=== PATIENT | male | born 1975 | race Caucasian/White ===

== ENCOUNTER 2018-07-23 11:02 | Inpatient (IN) | payer BC ==
[2018-07-23 12:06] LABS: Absolute Lymphocytes (CBC) 2.8 K/uL (0.7-4.9); Absolute Monocytes 0.8 K/uL (0.1-1.3); Absolute Neutrophil 5.1 K/uL (1.8-8.0); Basophils % 0.9 % (0-1.3); Eosinophils % 3.4 % (0-4.4); Hematocrit 45.8 % (39.6-49.0); Lymphocytes % 30.4 % (15.3-44.8); MPV 8.1 fL (7.6-11.3); Monocytes % 8.6 % (3.3-12.3); RBC Red Blood Cell Count 4.83 M/uL (4.33-5.43)
[2018-07-23 12:07] LABS: Protime INR 1.02
[2018-07-23 12:23] LABS: ALT/SGPT 60 U/L (12-78); AST/SGOT 19 U/L (15-37); Alkaline Phosphatase 96 U/L (45-117); BUN Blood Urea Nitrogen 9 mg/dL (7-18); Bicarbonate 30 mmol/L (21-32); Bilirubin Direct < 0.1 mg/dL (0-0.2); Bilirubin Total 0.3 mg/dL (0.2-1.0); Glucose Level 87 mg/dL (74-106); Magnesium 2.3 mg/dL (1.8-2.4); NT PRO-BNP 490 pg/mL (<125); Potassium 3.9 mmol/L (3.5-5.1); Protein, Total 7.4 g/dL (6.4-8.2); Sodium Level 139 mmol/L (136-145); Troponin (Emerg Dept Use Only) 0.08 ng/mL (0.0-0.045)
--- NOTE | 2018-07-23 12:24 | RAD REPORT ---
EXAM DESCRIPTION: RAD - Chest Single View - 07/23/2018 12:16 pm CLINICAL HISTORY: Shortness of breath, chest pain COMPARISON: January 2011 TECHNIQUE: AP portable chest image was obtained 1201 hours . FINDINGS: No focal lung parenchymal process. Lung markings are not substantially different from comp arison. Heart and vasculature are normal. No measurable pleural effusion and no pneumothorax. No acut e bony abnormality seen. No acute aortic findings suspected. IMPRESSION: No acute cardiopulmonary process.
--- NOTE | 2018-07-23 12:50 | ER ---
Nurse's Notes [facility] Name: Gregory Richardson Jr Age: 43 yrs Sex: Male : 1975 Arrival Date: 07/23/2018 Time: 11:03 Bed 16 Private MD: Billy Granger T Diagnosis: Abnormal electrocardiogram [ECG] [EKG];Unstable angina Presentation: 07/23 11:11 Presenting complaint: "My heart feels like it keeps skipping a beat 2-3 times per hb minute, when it happens it takes my breath away.". Transition of care: patient was not received from another setting of care. Onset of symptoms was July 26, 2018. Risk Assessment: Do you want to hurt yourself or someone else? Patient reports no desire to harm self or others. Initial Sepsis Screen: Does the patient meet any 2 criteria? No. Patient's initial sepsis screen is negative. Does the patient have a suspected source of infection? No. Patient's initial sepsis screen is negative. Care prior to arrival: None. 11:11 Method Of Arrival: Ambulatory hb 11:11 Acuity: RHIANNON 3 hb Triage Assessment: 11:20 General: Appears uncomfortable, Behavior is calm. Pain: Denies pain. Neuro: No deficits ls4 noted. Cardiovascular: Reports palpitations, Denies chest pain, Capillary refill < 3 seconds Rhythm is regular Chest pain is denied. Historical: - Allergies: 11:13 No Known Allergies; hb - Home Meds: 11:13 carvedilol 12.5 mg oral tab 1 tab every 12 hours [Active]; rosuvastatin oral oral hb [Active]; - PMHx: 11:13 Hypertension; hb - PSHx: 11:13 None; hb - Immunization history:: Adult Immunizations up to date. - Social history:: Smoking status: Patient uses tobacco products, smokes one pack cigarettes per day. - Ebola Screening: : No symptoms or risks identified at this time. Screenin:40 Abuse screen: Denies threats or abuse. Denies injuries from another. Nutritional ls4 screening: No deficits noted. Tuberculosis screening: No symptoms or risk factors identified. Fall Risk None identified. Assessment: 11:40 General: Appears distressed, uncomfortable, Behavior is calm. Pain: Denies pain. Neuro: ls4 No deficits noted. Cardiovascular: Reports palpitations, Denies chest pain, diaphoresis, fatigue, lightheadedness, nausea, palpitations, shortness of breath, syncope, vomiting, Capillary refill < 3 seconds Patient's skin is warm and dry. Respiratory: No deficits noted. GI: No deficits noted. : No deficits noted. Musculoskeletal: No deficits noted. 12:38 Reassessment: Patient and/or family updated on plan of care and expected duration. Pain ls4 level reassessed. Patient is alert, oriented x 3, equal unlabored respirations, skin warm/dry/pink. 13:30 Reassessment: Patient and/or family updated on plan of care and expected duration. Pain ls4 level reassessed. Patient is alert, oriented x 3, equal unlabored respirations, skin warm/dry/pink. 14:30 Reassessment: Patient and/or family updated on plan of care and expected duration. Pain ls4 level reassessed. Patient is alert, oriented x 3, equal unlabored respirations, skin warm/dry/pink. Vital Signs: 11:11 BP 165 / 99; Pulse 83; Resp 16; Temp 97.7; Pulse Ox 100% on R/A; Pain 0/10; hb 11:48 BP 149 / 102; Pulse 73; Resp 16; Pulse Ox 99% on R/A; Pain 0/10; ls4 12:39 BP 143 / 103; Pulse 68; Resp 18; Temp 98.0; Pulse Ox 99% on R/A; Pain 0/10; ls4 13:30 BP 147 / 94; Pulse 90; Resp 18; Temp 98.2; Pulse Ox 99% on R/A; Pain 0/10; ls4 14:21 BP 144 / 92; Pulse 70; Resp 16; Temp 98.4(O); Pulse Ox 99% on R/A; Pain 0/10; ls4 15:00 BP 148 / 90; Pulse 72; Resp 16; Temp 98.2(O); Pulse Ox 99% on R/A; Pain 0/10; ls4 ED Course: 11:03 Patient arrived in ED. rg4 11:03 Billy Granger MD is Private Physician. rg4 11:13 Triage completed. hb 11:13 Arm band placed on. hb 11:14 Martínez Jones MD is Attending Physician. gs 11:15 Pedro, Sharon, RN is Primary Nurse. ls4 11:40 Patient has correct armband on for positive identification. Bed in low position. Call ls4 light in reach. Side rails up X 1. monitor tech on. Pulse ox on. NIBP on. Warm blanket given. 11:40 No provider procedures requiring assistance completed. Inserted saline lock: 20 gauge ls4 in right forearm, using aseptic technique. 11:45 EKG done, by performing arts technicians. reviewed by Martínez Jones MD. at1 12:08 X-ray completed. Portable x-ray completed in exam room. Patient tolerated procedure sw well. 12:11 XRAY Chest (1 view) In Process Unspecified. EDMS 12:47 Jessica Haro MD is Hospitalizing Provider. gs 15:44 Patient transferred, IV remains in place. intact. ls4 Administered Medications: 12:58 CANCELLED (Duplicate Order): Nicoderm CQ 21 mg/24 hr 21 mg Transdermal once gs 13:39 Drug: Aspirin Chewable Tablet 324 mg Route: PO; ls4 14:10 Follow up: Response: No adverse reaction ls4 Outcome: 12:49 Decision to Hospitalize by Provider. gs 15:28 Admitted to Tele room 215. ls4 15:28 Admitted to Tele Report called to [facility] 15:28 Condition: stable 15:45 Patient left the ED. ls4 Signatures: Dispatcher [employer] EDID Lottie Vázquez, envelope folding machine adjuster EKG Tat1 Tabitha Price Heather, ROEL RN Starla Son rg4 Martínez Jones MD MD Sharon Vasquez RN RN ls4
--- NOTE | 2018-07-23 12:51 | EDPHYS ---
Physician Documentation [facility] Name: Gregory Richardson Jr Age: 43 yrs Sex: Male : 1975 Arrival Date: 07/23/2018 Time: 11:03 Bed 16 Private MD: Billy Granger T ED Physician Martínez Jones HPI: 07/23 12:32 This 43 yrs old Male presents to ER via Ambulatory with complaints of gs Palpitations. 12:32 The patient presents with a history of heart skipping beats. Context: The symptoms gs occur without known cause. Onset: The symptoms/episode began/occurred 1 week(s) ago. Duration: The patient or guardian reports multiple episodes, that are intermittent, that wax and wane, with no pattern. Modifying factors: The symptoms are aggravated by nothing. The symptoms are alleviated by nothing. Associated signs and symptoms: Pertinent positives: chest pain, SOB. Severity of symptoms: At their worst the symptoms were moderate in the emergency department the symptoms have resolved and did so while in waiting room. The patient has experienced similar episodes in the past, a few times. The patient has not recently seen a physician. Historical: - Allergies: 11:13 No Known Allergies; hb - Home Meds: 11:13 carvedilol 12.5 mg oral tab 1 tab every 12 hours [Active]; rosuvastatin oral oral hb [Active]; - PMHx: 11:13 Hypertension; hb - PSHx: 11:13 None; hb - Immunization history:: Adult Immunizations up to date. - Social history:: Smoking status: Patient uses tobacco products, smokes one pack cigarettes per day. - Ebola Screening: : No symptoms or risks identified at this time. ROS: 12:32 All other systems are negative. gs Exam: 12:32 Head/Face: Normocephalic, atraumatic. Eyes: Pupils equal round and reactive to light, gs extra-ocular motions intact. Lids and lashes normal. Conjunctiva and sclera are non-icteric and not injected. Cornea within normal limits. Periorbital areas with no swelling, redness, or edema. ENT: Nares patent. No nasal discharge, no septal abnormalities noted. Tympanic membranes are normal and external auditory canals are clear. Oropharynx with no redness, swelling, or masses, exudates, or evidence of obstruction, uvula midline. Mucous membranes moist. Neck: Trachea midline, no thyromegaly or masses palpated, and no cervical lymphadenopathy. Supple, full range of motion without nuchal rigidity, or vertebral point tenderness. No Meningismus. Chest/axilla: Normal chest wall appearance and motion. Nontender with no deformity. No lesions are appreciated. Cardiovascular: Regular rate and rhythm with a normal S1 and S2. No gallops, murmurs, or rubs. Normal PMI, no JVD. No pulse deficits. Respiratory: Lungs have equal breath sounds bilaterally, clear to auscultation and percussion. No rales, rhonchi or wheezes noted. No increased work of breathing, no retractions or nasal flaring. Abdomen/GI: Soft, non-tender, with normal bowel sounds. No distension or tympany. No guarding or rebound. No evidence of tenderness throughout. Back: No spinal tenderness. No costovertebral tenderness. Full range of motion. Skin: Warm, dry with normal turgor. Normal color with no rashes, no lesions, and no evidence of cellulitis. MS/ Extremity: Pulses equal, no cyanosis. Neurovascular intact. Full, normal range of motion. Neuro: Awake and alert, GCS 15, oriented to person, place, time, and situation. Cranial nerves II-XII grossly intact. Motor strength 5/5 in all extremities. Sensory grossly intact. Cerebellar exam normal. Normal gait. 12:32 Constitutional: The patient appears alert, awake. 12:32 ECG was reviewed by the Attending Physician. Vital Signs: 11:11 BP 165 / 99; Pulse 83; Resp 16; Temp 97.7; Pulse Ox 100% on R/A; Pain 0/10; hb 11:48 BP 149 / 102; Pulse 73; Resp 16; Pulse Ox 99% on R/A; Pain 0/10; ls4 12:39 BP 143 / 103; Pulse 68; Resp 18; Temp 98.0; Pulse Ox 99% on R/A; Pain 0/10; ls4 13:30 BP 147 / 94; Pulse 90; Resp 18; Temp 98.2; Pulse Ox 99% on R/A; Pain 0/10; ls4 14:21 BP 144 / 92; Pulse 70; Resp 16; Temp 98.4(O); Pulse Ox 99% on R/A; Pain 0/10; ls4 15:00 BP 148 / 90; Pulse 72; Resp 16; Temp 98.2(O); Pulse Ox 99% on R/A; Pain 0/10; ls4 MDM: 11:41 Patient medically screened. gs 12:32 LEONEL Risk Score: 1 - Elevated Cardiac Markers. Differential diagnosis: arrythmia, gs dehydration, cad,mi. Data reviewed: vital signs, nurses notes. Counseling: I had a detailed discussion with the patient and/or guardian regarding: the historical points, exam findings, and any diagnostic results supporting the discharge/admit diagnosis, lab results, radiology results, the need for further work-up and treatment in the hospital. Response to treatment: There is no appreciated change of the patient's symptoms at this time. 12:49 Physician consultation: Porter Guerra MD and will see patient in inpatient room. 07/23 11:39 Order name: Basic Metabolic Panel; Complete Time: 12:30 [facility] 07/23 11:39 Order name: CBC with Diff; Complete Time: 12:30 [facility] 07/23 11:39 Order name: LFT's; Complete Time: 12:30 [facility] 07/23 11:39 Order name: Magnesium; Complete Time: 12:30 [facility] 07/23 11:39 Order name: NT PRO-BNP; Complete Time: 12:30 [facility] 07/23 11:39 Order name: PT-INR; Complete Time: 12:30 [facility] 07/23 11:39 Order name: Troponin (emerg Dept Use Only); Complete Time: 12:30 [facility] 07/23 11:39 Order name: XRAY Chest (1 view); Complete Time: 12:30 [facility] 07/23 13:24 Order name: Troponin I [facility] 07/23 13:24 Order name: Troponin I [facility] 07/23 13:24 Order name: Troponin I [facility] 07/23 13:24 Order name: Troponin I [facility] 07/23 11:39 Order name: EKG; Complete Time: 11:49 [facility] 07/23 11:39 Order name: Cardiac monitoring; Complete Time: 11:47 [facility] 07/23 11:39 Order name: EKG - Nurse/Tech; Complete Time: 11:47 [facility] 07/23 11:39 Order name: IV Saline Lock; Complete Time: 11:47 [facility] 02/12 11:39 Order name: Labs collected and sent; Complete Time: 11:47 4 07/23 11:39 Order name: O2 Per Protocol; Complete Time: 11:47 4 07/23 11:39 Order name: O2 Sat Monitoring; Complete Time: 11:48 4 07/23 13:23 Order name: CONS Physician Consult EDVT EC:32 Rate is 81 beats/min. Rhythm is regular. WI interval is normal. QRS interval is normal. gs Q waves are Old in leads III, aVF. T waves are Peaked in lead V2. T waves are Flattened in lead V6. Clinical impression: NSR w/ Non-specific ST/T Changes. Interpreted by me. Administered Medications: 12:58 CANCELLED (Duplicate Order): Nicoderm CQ 21 mg/24 hr 21 mg Transdermal once 13:39 Drug: Aspirin Chewable Tablet 324 mg Route: PO; ls4 14:10 Follow up: Response: No adverse reaction ls4 Disposition: 07/23/18 12:49 Hospitalization ordered by Jessica Haro for Inpatient Admission. Preliminary diagnosis are Abnormal electrocardiogram [ECG] [EKG], Unstable angina. - Bed requested for Telemetry/MedSurg (Inpatient). - Status is Inpatient Admission. ls4 - Condition is Stable. - Problem is new. - Symptoms are unchanged. UTI on Admission? No Critical care time excluding procedures: 12:46 Critical care time: Bedside Care: 10 minutes, Consultation: 10 minutes, Family Intervention: 10 minutes. Total time: 30 minutes Signatures: Dispatcher [facility] Riri Caballero RN RN Martínez Jones MD MD Brianna Moran Lisa, RN RN ls4 Corrections: (The following items were deleted from the chart) 12:58 12:57 Nicoderm CQ Patch 21 mg/24 hr 21 mg Transdermal once ordered. [facility] 14:34 12:49 Hospitalization Ordered by Jessica Haro MD for Inpatient Admission. Preliminary eb diagnosis is Abnormal electrocardiogram [ECG] [EKG]; Unstable angina. Bed requested for Telemetry/MedSurg (Inpatient). Status is Inpatient Admission. Condition is Stable. Problem is new. Symptoms are unchanged. UTI on Admission? No. gs 15:45 14:34 07/23/2018 12:49 Hospitalization Ordered by Jessica Haro MD for Inpatient ls4 Admission. Preliminary diagnosis is Abnormal electrocardiogram [ECG] [EKG]; Unstable angina. Bed requested for Telemetry/MedSurg (Inpatient). Status is Inpatient Admission. Condition is Stable. Problem is new. Symptoms are unchanged. UTI on Admission? No. eb
[2018-07-23] MEDS ORDERED: ASPIRIN 81 MG CHEWABLE TABLET ONE (13:25)
[2018-07-23] MEDS ORDERED: DIPHENHYDRAMINE 50 MG/ML VIAL ONE (13:25)
[2018-07-23] MEDS ORDERED: ACETAMINOPHEN 500 MG TAB PO PRN (15:32)
[2018-07-23 15:44] VITALS: BMI 32.1
[2018-07-23] MEDS: NA CHLORIDE 0.9% 1,000 ML IV SCH (16:20)
--- NOTE | 2018-07-23 16:57 | EKG ---
Test Date: 2018-07-23 Test Time: 11:20:03 [employer] Cook: MARYANN/T MEASUREMENT RESULTS: Intervals: Rate: 81 FL: 144 QRSD: 88 QT: 372 QTc: 432 Bennett: P: 55 FL: 144 QRS: 23 T: 1 INTERPRETIVE STATEMENTS: Normal sinus rhythm Possible Inferior infarct, age undetermined Abnormal ECG Compared to ECG 02/01/2011 19:49:20 Myocardial infarct finding now present Electronically Signed On 07-23-18 16:56:50 DATA STORAGE SPECIALIST by Porter Guerra
[2018-07-23] MEDS ORDERED: INFLUENZA VACCINE (for 3y+) 0.5 ML DOSE IMVAC ONE (17:00)
[2018-07-23] MEDS: NICOTINE 14 MG/PAT TD SCH (17:00)
--- NOTE | 2018-07-23 17:36 | P.HP ---
Certification for Inpatient Patient admitted to: Inpatient With expected LOS: >2 Midnights Practitioner: I am a practitioner with admitting privileges, knowledge of patient current condition, hospital course, and medical plan of care. Services: Services provided to patient in accordance with Admission requirements found in Title 42 Section 412.3 of the Code of Federal Regulations Patient History Date of Service: 07/23/18 Reason for admission: Chest Pressure History of Present Illness: 43 y/o male with significant past medical history who presented to the ER with chest pressure that started this morning. Patient stated that about 3 days ago he was seen at the urgent care for the similar pain in his left chest which was radiating up his neck and has been having tingling and numbness in his left arm as well. Patient was told at that time to come to the ER as he had some changes to his EKG and some of his lab work was abnormal. However at that time patient did not come to the ER however this morning since his chest pain got worse he decided to come to the ER for further workup. Patient denies having any shortness of breath nausea vomiting abdominal pain or any other associated symptoms. Patient currently smokes more than a pack a day and drinks about 1-2 beer cans tonight. Patient currently also is compliant with his high blood pressure medication. No other complaints to offer. Allergies No Known Drug Allergies Allergy (Unverified 12/18/14 17:34) Unknown No Known Allergies Allergy (Uncoded 07/26/16 13:52) Unknown Home medications list reviewed: Yes Home Medications: Carvedilol [Coreg*] 12.5 mg pe PO BID 07/23/18 - Past Medical/Surgical History Has patient received pneumonia vaccine in the past: No Diabetic: No -: hypertension -: hyppercholesterolemia -: Tobacco Dependence Past Surgical History: Reviewed- Non-Contributory -: left shoulder surgery - Family History Family History: Reviewed- Non-Contributory - Social History Smoking Status: Heavy Tobacco smoker (>10 cigarettes/day) Counseled patient to stop smoking for: more than 10 minutes Smoking therapy provided: Yes Patient receptive to therapy: Yes Alcohol use: Yes CD- Drugs: No Caffeine use: Yes Place of Residence: Home Review of Systems 10-point ROS is otherwise unremarkable Physical Examination - Vital Signs Temperature: 98.0 F Blood Pressure: 152/98 Pulse: 68 Respirations: 20 Pulse Ox (%): 99 - Physical Exam General: Alert, In no apparent distress HEENT: Atraumatic, PERRLA, Mucous membr. moist/pink, EOMI, Sclerae nonicteric Neck: Supple, 2+ carotid pulse no bruit, No LAD, Without JVD or thyroid abnormality Respiratory: Clear to auscultation bilaterally, Normal air movement Cardiovascular: Regular rate/rhythm, Normal S1 S2 Gastrointestinal: Normal bowel sounds, No tenderness Musculoskeletal: No tenderness Integumentary: No rashes Neurological: Normal gait, Normal speech, Normal strength at 5/5 x4 extr, Normal tone, Normal affect Lymphatics: No axilla or inguinal lymphadenopathy - Studies Laboratory Data (last 24 hrs) 07/23/18 11:56: PT 12.0, INR 1.02 07/23/18 11:56: WBC 9.1, Hgb 15.7, Hct 45.8, Plt Count 274 07/23/18 11:56: Sodium 139, Potassium 3.9, BUN 9, Creatinine 0.77, Glucose 87, Magnesium 2.3, Total Bilirubin 0.3, AST 19, ALT 60, Alkaline Phosphatase 96 Assessment and Plan - Problems (Diagnosis) (1) NSTEMI (non-ST elevated myocardial infarction) Current Visit: Yes Status: Acute Plan: NSTEMI with elevated Troponin and nonspecific ST changes on EKG -Cardiology consulted. Appreciated Reccs -Cardiac Cath Planned for pablo AM -ASA, Lovenox, BB and Statin for now (2) HTN (hypertension) Current Visit: Yes Status: Chronic Plan: BP stable at this time -Resume home medication Qualifiers: Hypertension type: essential hypertension Qualified Code(s): I10 - Essential (primary) hypertension (3) Tobacco abuse Current Visit: Yes Status: Acute Plan: Smoking Cessation for > 10 mins provided -nicotine patch placed (4) Alcohol use Current Visit: Yes Status: Acute Discharge Plan: Other Plan to discharge in: Greater than 2 days - Advance Directives Does patient have a Living Will: No Does patient have a Durable POA for Healthcare: No - Code Status/Comfort Care Code Status Assessed: Yes Critical Care: No
[2018-07-23 18:01] LABS: Urine Appearance CLEAR; Urine Bilirubin NEGATIVE (NEG); Urine Blood NEGATIVE (NEG); Urine Color YELLOW; Urine Glucose NEGATIVE (NEG); Urine Protein NEGATIVE (NEG); Urine Urobilinogen 0.2 mg/dL (0.2-1.0)
[2018-07-23 18:24] LABS: Urine Microscopic Reflex NO UMIC
[2018-07-23] MEDS ORDERED: POTASSIUM CL SA 10 MEQ TAB PO ONE (18:44)
[2018-07-23] MEDS: PANTOPRAZOLE 40MG TABLET PO SCH (18:55)
[2018-07-23] MEDS ORDERED: ATORVASTATIN 40 MG TAB PO SCH (21:00)
[2018-07-23] MEDS: CARVEDILOL 12.5 MG TAB PO SCH (21:04)
--- NOTE | 2018-07-23 22:42 | CON ---
CARDIOLOGY CONSULTATION Chief Complaint: Chest pain. History Of Present Illness: Mr. Richardson has been having chest pain on and off. It is associated with pa lpitations, feels like pressure. He has been dealing with it for several weeks, came to the ER becau se it seemed to be worse. He has an EKG that is different from old EKGs. There is, what looks like, a completed inferior MN and nonspecific ST changes. His laboratory exam reveals a troponin of 0.08. Mr. Richardson has no previous history of myocardial infarction or stroke. About a month ago, he was star shannon on blood pressure medicine and seemed to feel fine with that and was also started on Crestor and immediately had to stop it because of muscle aches and pains and general feeling of illness. Medications: His blood pressure medicine at home is Coreg 12.5 mg b.i.d. Social History: The patient is a heavy tobacco user. He has been a 2 utsp-epn-oid smoker, presently is about 1 pack per day. Family History: His family history is very positive for heart disease and about every living [facility] has some form of heart disease, numerous of his primary notable family members are or suff ering with CAD. Physical Examination: Vital signs: Height 5 feet 11 inches, weight 230 pounds. General: Alert, oriented, pleasant, and not in distress. Lungs: Clear. Heart: Exam within normal limits. Abdomen: Soft. Extremities: Palpable pulses. Laboratory Data: EKG, inferior MN. His creatinine is 0.77. His blood sugar is 87. Impression And Plan: The patient either had a non-ST elevation myocardial infarction or unstable ang pretty. I have recommended cardiac cath, smoking cessation, and trying a different cholesterol medicine . He is agreeable to doing a cardiac cath tomorrow. We will try to use the right radial approach pr imarily and be ready to put a stent in, if required. MARIO/HERONL Voice ID: [id number] Report ID: [id number]
[2018-07-24] MEDS: NA CHLORIDE 0.9% 1,000 ML IV SCH (01:32)
[2018-07-24 04:41] LABS: Absolute Lymphocytes (CBC) 2.7 K/uL (0.7-4.9); Absolute Monocytes 0.9 K/uL (0.1-1.3); Absolute Neutrophil 4.7 K/uL (1.8-8.0); Basophils % 0.5 % (0-1.3); Eosinophils % 3.6 % (0-4.4); Hematocrit 45.6 % (39.6-49.0); Lymphocytes % 31.2 % (15.3-44.8); MPV 8.2 fL (7.6-11.3); Monocytes % 10.5 % (3.3-12.3); RBC Red Blood Cell Count 4.71 M/uL (4.33-5.43)
[2018-07-24 04:56] LABS: ALT/SGPT 54 U/L (12-78); AST/SGOT 17 U/L (15-37); Albumin 3.7 g/dL (3.4-5.0); Alkaline Phosphatase 91 U/L (45-117); BUN Blood Urea Nitrogen 9 mg/dL (7-18); Bicarbonate 29 mmol/L (21-32); Bilirubin Total 0.6 mg/dL (0.2-1.0); Glucose Level 88 mg/dL (74-106); Potassium 4.2 mmol/L (3.5-5.1); Protein, Total 7.1 g/dL (6.4-8.2); Sodium Level 145 mmol/L (136-145); Troponin I 0.08 ng/mL (0.0-0.045)
[2018-07-24] MEDS ORDERED: METOPROLOL XL 25 MG TAB PO SCH (06:00)
[2018-07-24] MEDS: ASPIRIN EC 81 MG TAB PO SCH (07:20)
[2018-07-24] MEDS: CARVEDILOL 12.5 MG TAB PO SCH ×2 (07:22→20:26)
[2018-07-24] MEDS: PANTOPRAZOLE 40MG TABLET PO SCH (07:22)
[2018-07-24] MEDS ORDERED: LIDOCAINE 1% 20 ML MDV ONE (07:23)
[2018-07-24] MEDS ORDERED: HEPA 1000U/500MLS 2,000 UNIT/1,000 ML BAG IV ONE (07:23)
[2018-07-24] MEDS ORDERED: HEPARIN 5000 UNIT/ML 1 ML VIAL ONE (07:25)
[2018-07-24] MEDS ORDERED: NICARDIPINE HCL 25 MG/10 ML IV ONE (07:25)
[2018-07-24] MEDS ORDERED: NITROGLYCERIN 100 MCG/ML SYR (for cath lab use only) IV ONE (07:25)
[2018-07-24] MEDS ORDERED: NITROGLYCERIN/D5W 25 MG/250 ML BTL IV ONE (07:25)
[2018-07-24] MEDS ORDERED: MIDAZOLAM HCL 2 MG/2 ML INJ ONE ×2 (08:09→08:42)
[2018-07-24] MEDS ORDERED: FENTANYL CITR 100 MCG/2 ML ONE (08:09)
[2018-07-24] MEDS ORDERED: ATROPINE SULF 1 MG/10 ML SYR IV ONE (08:14)
[2018-07-24] MEDS ORDERED: NA CHLORIDE 0.9% 50 ML ONE (08:14)
[2018-07-24] MEDS: NICOTINE 14 MG/PAT TD SCH ×2 (09:00→14:30)
[2018-07-24] MEDS: CLOPIDOGREL 75 MG TABLET PO SCH (09:00)
[2018-07-24] MEDS ORDERED: PRASUGREL (EFFIENT) 10 MG TAB ONE (09:04)
[2018-07-24 16:30] VITALS: O2SAT 96
[2018-07-24] MEDS: METOPROLOL XL 50 MG TAB PO SCH (17:33)
--- NOTE | 2018-07-24 17:45 | P.PN ---
Subjective Date of Service: 07/24/18 Chief Complaint: Chest Pressure Examined at bedside with RN. Chart reviewed. Case discussed with cardiology. Patient status post cardiac catheterization. Stent placed in the RCA. Review of Systems 10-point ROS is otherwise unremarkable Physical Examination - Vital Signs Temperature: 98.7 F Blood Pressure: 135/70 Pulse: 84 Respirations: 18 Pulse Ox (%): 96 - Physical Exam General: Alert, In no apparent distress HEENT: Atraumatic, PERRLA, EOMI Neck: Supple, JVD not distended Respiratory: Clear to auscultation bilaterally, Normal air movement Cardiovascular: Regular rate/rhythm, Normal S1 S2 Gastrointestinal: Normal bowel sounds, No tenderness Musculoskeletal: No tenderness Integumentary: No rashes Neurological: Normal speech, Normal tone, Normal affect Lymphatics: No axilla or inguinal lymphadenopathy - Studies Medications List Reviewed: Yes Assessment And Plan - Current Problems (Diagnosis) (1) NSTEMI (non-ST elevated myocardial infarction) Onset Date: 07/24/18 Current Visit: Yes Status: Acute Plan: NSTEMI with elevated Troponin and nonspecific ST changes on EKG -Cardiology consulted. Appreciated Reccs -S/P Cardiac Cath POD # 1 -Stent Placed in RCA today -ASA, Lovenox, BB and Statin for now (2) HTN (hypertension) Onset Date: 07/24/18 Current Visit: Yes Status: Chronic Plan: BP stable at this time -Resume home medication Qualifiers: Hypertension type: essential hypertension Qualified Code(s): I10 - Essential (primary) hypertension (3) Tobacco abuse Onset Date: 07/24/18 Current Visit: Yes Status: Acute Plan: Smoking Cessation for > 10 mins provided -nicotine patch placed (4) Alcohol use Onset Date: 07/24/18 Current Visit: Yes Status: Acute Discharge Plan: Home Plan to discharge in: 48 Hours - Code Status/Comfort Care Code Status Assessed: Yes Critical Care: No
[2018-07-24] MEDS ORDERED: ATORVASTATIN 80 MG TAB PO SCH (21:00)
[2018-07-24] MEDS ORDERED: TEMAZEPAM 15 MG CAP PO PRN (22:21)
[2018-07-25 04:27] LABS: Absolute Lymphocytes (CBC) 2.6 K/uL (0.7-4.9); Absolute Monocytes 0.8 K/uL (0.1-1.3); Absolute Neutrophil 4.8 K/uL (1.8-8.0); Basophils % 0.4 % (0-1.3); Eosinophils % 3.7 % (0-4.4); Lymphocytes % 30.1 % (15.3-44.8); MPV 8.4 fL (7.6-11.3); Monocytes % 9.8 % (3.3-12.3); RBC Red Blood Cell Count 4.93 M/uL (4.33-5.43)
[2018-07-25 04:51] LABS: ALT/SGPT 51 U/L (12-78); AST/SGOT 15 U/L (15-37); Albumin 3.9 g/dL (3.4-5.0); Alkaline Phosphatase 80 U/L (45-117); BUN Blood Urea Nitrogen 10 mg/dL (7-18); Bicarbonate 25 mmol/L (21-32); Bilirubin Total 0.4 mg/dL (0.2-1.0); Glucose Level 103 mg/dL (74-106); Protein, Total 7.1 g/dL (6.4-8.2); Sodium Level 143 mmol/L (136-145)
[2018-07-25 05:19] VITALS: TEMP 96.9
[2018-07-25] MEDS: METOPROLOL XL 50 MG TAB PO SCH (06:43)
[2018-07-25] MEDS: NICOTINE 14 MG/PAT TD SCH ×2 (08:10→08:14)
[2018-07-25] MEDS: PANTOPRAZOLE 40MG TABLET PO SCH (08:11)
[2018-07-25] MEDS: CARVEDILOL 12.5 MG TAB PO SCH ×2 (08:11→08:16)
[2018-07-25] MEDS: ASPIRIN EC 81 MG TAB PO SCH (08:11)
[2018-07-25] MEDS: CLOPIDOGREL 75 MG TABLET PO SCH (08:11)
[2018-07-25] MEDS: LISINOPRIL 5 MG TAB PO SCH ×2 (08:11→08:23)
[2018-07-25 08:23] VITALS: BP 109/58
--- NOTE | 2018-07-25 16:27 | P.DS ---
Admission Date: 07/23/18 Discharge Date: 07/25/18 Disposition: ROUTINE DISCHARGE Discharge Condition: GOOD Reason for Admission: Chest Pressure Consultations: Cardiology Procedures: Stent Placement in RCA for 99% occlusion - Problems (1) NSTEMI (non-ST elevated myocardial infarction) Onset Date: 07/24/18 Status: Acute (2) HTN (hypertension) Onset Date: 07/24/18 Status: Chronic Qualifiers: Hypertension type: essential hypertension Qualified Code(s): I10 - Essential (primary) hypertension (3) Tobacco abuse Onset Date: 07/24/18 Status: Acute (4) Alcohol use Onset Date: 07/24/18 Status: Acute Brief History of Present Illness: 43 y/o male with significant past medical history who presented to the ER with chest pressure that started this morning. Patient stated that about 3 days ago he was seen at the urgent care for the similar pain in his left chest which was radiating up his neck and has been having tingling and numbness in his left arm as well. Patient was told at that time to come to the ER as he had some changes to his EKG and some of his lab work was abnormal. However at that time patient did not come to the ER however this morning since his chest pain got worse he decided to come to the ER for further workup. Patient denies having any shortness of breath nausea vomiting abdominal pain or any other associated symptoms. Patient currently smokes more than a pack a day and drinks about 1-2 beer cans tonight. Patient currently also is compliant with his high blood pressure medication. No other complaints to offer. Hospital Course: Overall during the hospital stay patient remained stable Patient was initially admitted to the hospital for chest pain was found to have non ST elevated LA. Patient was taken to the cardiac catheterization lab with cardiology and was found to have 99% occlusion of his RCA. Patient received a stent in his RCA and had marked resolution in his symptoms. Patient was then started on acute coronary syndrome medication and was asked to follow up with cardiology in about 1-2 days post discharge when he was doing well overall here in the hospital. Patient demonstrate understanding and thus was discharged home under stable condition. Vital Signs/Physical Exam: Temp Pulse Resp BP Pulse Ox 96.9 F 65 18 109/58 L 97 07/25/18 04:00 07/25/18 06:43 07/25/18 04:00 07/25/18 06:43 07/25/18 04:00 General: Alert, In no apparent distress HEENT: Atraumatic, PERRLA, EOMI Neck: Supple, JVD not distended Respiratory: Clear to auscultation bilaterally, Normal air movement Cardiovascular: Regular rate/rhythm, Normal S1 S2 Gastrointestinal: Normal bowel sounds, No tenderness Musculoskeletal: No tenderness Integumentary: No rashes Neurological: Normal speech, Normal tone, Normal affect Lymphatics: No axilla or inguinal lymphadenopathy Laboratory Data at Discharge: WBC 8.6 K/uL (4.3-10.9) 07/25/18 03:37 Hgb 15.9 g/dL (13.6-17.9) 07/25/18 03:37 Hct 47.0 % (39.6-49.0) 07/25/18 03:37 Plt Count 232 K/uL (152-406) 07/25/18 03:37 PT 12.0 SECONDS (9.5-12.5) 07/23/18 11:56 INR 1.02 07/23/18 11:56 Sodium 143 mmol/L (136-145) 07/25/18 03:37 Potassium 4.0 mmol/L (3.5-5.1) 07/25/18 03:37 BUN 10 mg/dL (7-18) 07/25/18 03:37 Creatinine 0.72 mg/dL (0.55-1.3) 07/25/18 03:37 Glucose 103 mg/dL (74-106) 07/25/18 03:37 Magnesium 2.3 mg/dL (1.8-2.4) 07/23/18 11:56 Total Bilirubin 0.4 mg/dL (0.2-1.0) 07/25/18 03:37 AST 15 U/L (15-37) 07/25/18 03:37 ALT 51 U/L (12-78) 07/25/18 03:37 Alkaline Phosphatase 80 U/L (45-117) 07/25/18 03:37 Troponin I 0.08 ng/mL (0.0-0.045) H 07/24/18 03:37 Home Medications: Atorvastatin Calcium [Lipitor] 80 mg PO BEDTIME 30 Days #30 tab 07/25/18 Clopidogrel Bisulfate [Plavix*] 75 mg PO DAILY #30 tablet 07/25/18 Lisinopril [Prinivil*] 5 mg PO DAILY tab 07/25/18 Metoprolol Succinate [Toprol Xl*] 50 mg PO BID 6AM 6PM #60 tab 07/25/18 New Medications: Atorvastatin Calcium [Lipitor] 80 mg PO BEDTIME 30 Days #30 tab Clopidogrel Bisulfate [Plavix*] 75 mg PO DAILY #30 tablet Metoprolol Succinate [Toprol Xl*] 50 mg PO BID 6AM 6PM #60 tab
--- NOTE | 2018-08-08 02:14 | OP ---
Date of Procedure: 07/24/2018 Surgeon: Porter Guerra MD Procedures: Left heart catheterization, coronary left ventricular angiography, and percutaneous stephen nary intervention stent of the distal right coronary artery. 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 He has diffuse coronary plaquing in his LAD and left main. No significant stenosis. The proximal pa rt of the right coronary artery mid portions are free of any significant disease. The mid to distal portion had a long, dissected 99% stenosis with thrombus and after stenting with a 3.0 x 20 mm Synerg y stent, there was no residual stenosis, LEONEL grade 3 flow. Procedure In Detail: The patient had evidence of a non-ST elevation IL. He was brought to the [facility] laboratory tester fasting, sedated with Versed and fentanyl. Prepared and draped in usual sterile fashion. Right radial artery was chosen as the site. The tissues around the right radial artery were anesth etized with lidocaine. The artery was entered using a 21-gauge needle. A 0.021 inch diameter guidew sae was used to cannulate the artery. This allowed us to place a 6-Japanese Terumo radial sheath. As soon as it was in, we flushed it and administered a radial cocktail consisting of nicardipine, hepari n, and nitroglycerin. We angiogram'd both arteries and left ventricle using a TIG catheter. It was guided into place using a Terumo Glidewire with a short radius J-tip and fluoroscopy. At the end of the angiography procedures, we decided to do a stent. We administered Angiomax, demonstrated an acti vated clotting time greater than 400 seconds. We used an Ikari right guide catheter. We cannulated and crossed the lesion with a Dyess wire and then, without any predilation, We placed a 3.0 x 20 rigo nt across the lesion, inflated; it had an excellent angiographic result. At the end of the procedure , all catheters and wires were removed and the sheath was removed. Angiomax was turned off. A TR ba nd was placed, which achieved excellent hemostasis. Complications From The Procedure: None. Estimated Blood Loss: 10 cc. Account Management Specialist: Antolin Osorio. MARIO/RENEE Voice ID: [id number] Report ID: [id number]
== END 2018-07-25 09:59 | disposition home or self-care (01) | DRG 247 ==
LOC: ER 11:02 → ERHOLD 13:22 → 4TH 15:03
PROVIDERS: ADMIT Family Medicine; ATTEND Family Medicine
PROC: 027034Z Dilation of Coronary Artery, One Artery with Drug-eluting Intraluminal Device, Percutaneous Approach (ICD-10-PCS; principal; 2018-07-24)
PROC: 4A023N7 Measurement of Cardiac Sampling and Pressure, Left Heart, Percutaneous Approach (ICD-10-PCS; 2018-07-24)
PROC: B211YZZ Fluoroscopy of Multiple Coronary Arteries using Other Contrast (ICD-10-PCS; 2018-07-24)
PROC: B215YZZ Fluoroscopy of Left Heart using Other Contrast (ICD-10-PCS; 2018-07-24)
DX: I21.4 Non-ST elevation (NSTEMI) myocardial infarction (principal); F17.210 Nicotine dependence, cigarettes, uncomplicated; E78.00 Pure hypercholesterolemia, unspecified; I25.10 Atherosclerotic heart disease of native coronary artery without angina pectoris; I25.84 Coronary atherosclerosis due to calcified coronary lesion; F10.10 Alcohol abuse, uncomplicated; I11.9 Hypertensive heart disease without heart failure
CPT/HCPCS: 36415; 71045; 80048; 80053; 80076; 81003; 83735; 83880; 84484; 85025; 85347; 85610; 92928; 93005; 93458; 99285; C1725; C1893; J0583; J1644; J2250; J3010; J7030

== ENCOUNTER 2018-08-07 06:36 | Observation (INO) | payer BC ==
[2018-08-07] MEDS ORDERED: ASPIRIN 81 MG CHEWABLE TABLET ONE (07:09)
[2018-08-07 07:29] LABS: ALT/SGPT 50 U/L (12-78); AST/SGOT 18 U/L (15-37); Albumin 3.8 g/dL (3.4-5.0); Alkaline Phosphatase 107 U/L (45-117); BUN Blood Urea Nitrogen 10 mg/dL (7-18); Bicarbonate 28 mmol/L (21-32); Bilirubin Direct < 0.1 mg/dL (0-0.2); Bilirubin Total 0.4 mg/dL (0.2-1.0); Glucose Level 88 mg/dL (74-106); Magnesium 2.2 mg/dL (1.8-2.4); NT PRO-BNP 1240 pg/mL (<125); Potassium 3.9 mmol/L (3.5-5.1); Sodium Level 142 mmol/L (136-145); Troponin (Emerg Dept Use Only) < 0.02 ng/mL (0.0-0.045)
[2018-08-07 07:35] LABS: Absolute Lymphocytes (CBC) 2.2 K/uL (0.7-4.9); Absolute Monocytes 0.6 K/uL (0.1-1.3); Absolute Neutrophil 4.2 K/uL (1.8-8.0); Basophils % 0.7 % (0-1.3); Eosinophils % 4.4 % (0-4.4); Hematocrit 44.4 % (39.6-49.0); Lymphocytes % 29.9 % (15.3-44.8); MPV 8.4 fL (7.6-11.3); Monocytes % 8.3 % (3.3-12.3); RBC Red Blood Cell Count 4.73 M/uL (4.33-5.43)
[2018-08-07 07:36] LABS: Protime INR 1.02
--- NOTE | 2018-08-07 07:50 | EKG ---
Test Date: 2018-08-07 Test Time: 06:45:57 Clinical Operations Specialist: JOSUE MEASUREMENT RESULTS: Intervals: Rate: 72 CA: 146 QRSD: 94 QT: 388 QTc: 424 [place]: P: 73 CA: 146 QRS: 42 T: -26 INTERPRETIVE STATEMENTS: Normal sinus rhythm Inferior infarct, age undetermined Abnormal ECG Compared to ECG 07/23/2018 11:20:03 No significant changes Electronically Signed On 08-07-18 07:49:54 MANAGER SURGICAL by Porter Guerra
--- NOTE | 2018-08-07 08:18 | EDPHYS ---
Physician Documentation [facility] Name: Gregory Richardson Jr Age: 43 yrs Sex: Male : 1975 Arrival Date: 08/07/2018 Time: 06:37 Bed 8 Private MD: Billy Granger T ED Physician Adrian Tamez HPI: 08/07 07:14 This 43 yrs old Male presents to ER via Wheelchair with complaints of Nausea, kb Headache, Breathing Difficulty. 07:14 The patient has shortness of breath that woke him/her from sleep. Onset: The kb symptoms/episode began/occurred this morning. Duration: The symptoms are continuous, and are steadily getting worse. The patient's shortness of breath has no apparent modifying factors. Associated signs and symptoms: Pertinent positives: chest pressure. Severity of symptoms: At their worst the symptoms were moderate in the emergency department the symptoms are unchanged. The patient has not experienced similar symptoms in the past. The patient has not recently seen a physician. Pt reports he woke up from shortness of breath earlier this morning. Ate breakfast and went to work hoping it would get better, but it has gotten worse. Reports chest pressure that started this morning as well, denies pain. Had stent placed this month by Dr Guerra. . Historical: - Allergies: 06:49 No Known Allergies; ak1 - Home Meds: 06:49 Plavix 75 mg Oral tab 1 tab once daily [Active]; Metoprolol Tartrate Oral [Active]; ak1 Crestor oral oral [Active]; - PMHx: 06:49 Hypertension; Hyperlipidemia; ak1 - PSHx: 06:49 Heart stents; ak1 - Immunization history:: Adult Immunizations unknown. - Social history:: Smoking status: Patient uses tobacco products, smokes one-half pack cigarettes per day, chewing tobacco. - Ebola Screening: : No symptoms or risks identified at this time. ROS: 07:11 Constitutional: Negative for fever, chills, and weight loss, ENT: Negative for injury, kb pain, and discharge, Neck: Negative for injury, pain, and swelling, Abdomen/GI: Negative for abdominal pain, nausea, vomiting, diarrhea, and constipation, Back: Negative for injury and pain, : Negative for injury, bleeding, discharge, and swelling, MS/Extremity: Negative for injury and deformity, Skin: Negative for injury, rash, and discoloration, Neuro: Negative for headache, weakness, numbness, tingling, and seizure. 07:11 Cardiovascular: Positive for chest pain, Negative for edema, orthopnea, palpitations, paroxysmal nocturnal dyspnea. 07:11 Respiratory: Positive for shortness of breath, Negative for cough, dyspnea on exertion, hemoptysis, orthopnea, pleurisy, sputum production, wheezing. Exam: 07:14 Constitutional: This is a well developed, well nourished patient who is awake, alert, kb and in no acute distress. Head/Face: Normocephalic, atraumatic. ENT: Nares patent. No nasal discharge, no septal abnormalities noted. Tympanic membranes are normal and external auditory canals are clear. Oropharynx with no redness, swelling, or masses, exudates, or evidence of obstruction, uvula midline. Mucous membranes moist. Neck: Trachea midline, no thyromegaly or masses palpated, and no cervical lymphadenopathy. Supple, full range of motion without nuchal rigidity, or vertebral point tenderness. No Meningismus. Chest/axilla: Normal chest wall appearance and motion. Nontender with no deformity. No lesions are appreciated. Cardiovascular: Regular rate and rhythm with a normal S1 and S2. No gallops, murmurs, or rubs. Normal PMI, no JVD. No pulse deficits. Respiratory: Lungs have equal breath sounds bilaterally, clear to auscultation and percussion. No rales, rhonchi or wheezes noted. No increased work of breathing, no retractions or nasal flaring. Abdomen/GI: Soft, non-tender, with normal bowel sounds. No distension or tympany. No guarding or rebound. No evidence of tenderness throughout. Back: No spinal tenderness. No costovertebral tenderness. Full range of motion. Skin: Warm, dry with normal turgor. Normal color with no rashes, no lesions, and no evidence of cellulitis. MS/ Extremity: Pulses equal, no cyanosis. Neurovascular intact. Full, normal range of motion. Neuro: Awake and alert, GCS 15, oriented to person, place, time, and situation. Cranial nerves II-XII grossly intact. Motor strength 5/5 in all extremities. Sensory grossly intact. Cerebellar exam normal. Normal gait. Vital Signs: 06:50 BP 182 / 91; Pulse 74; Resp 20; Temp 97.6(O); Pulse Ox 100% on R/A; Weight 99.79 kg ak1 (R); Height 5 ft. 10 in. (177.80 cm) (R); Pain 0/10; 08:00 BP 161 / 87; Pulse 64; Resp 18; Pulse Ox 99% on R/A; ph 09:00 BP 141 / 84; Pulse 62; Resp 17; Pulse Ox 100% on R/A; Pain 0/10; dh3 06:50 Body Mass Index 31.57 (99.79 kg, 177.80 cm) ak1 MDM: 06:45 Patient medically screened. kb 07:11 Data reviewed: vital signs, nurses notes. Data interpreted: Pulse oximetry: on room air kb is 100 %. Interpretation: normal. 08:10 Counseling: I had a detailed discussion with the patient and/or guardian regarding: the kb historical points, exam findings, and any diagnostic results supporting the discharge/admit diagnosis, lab results, radiology results, the need for further work-up and treatment in the hospital. 08:16 Physician consultation: Ivana Rodriguez MD was contacted at 08:16, regarding admission, to the telemetry unit. patient's condition, and will see patient in ED, shortly. 08/07 06:50 Order name: Basic Metabolic Panel; Complete Time: 07:29 kb 08/07 06:50 Order name: CBC with Diff; Complete Time: 07:43 kb 08/07 06:50 Order name: LFT's; Complete Time: 07:29 kb 08/07 06:50 Order name: Magnesium; Complete Time: 07:29 kb 08/07 06:50 Order name: NT PRO-BNP; Complete Time: 07:29 kb 08/07 06:50 Order name: PT-INR; Complete Time: 07:37 kb 08/07 06:50 Order name: Troponin (emerg Dept Use Only); Complete Time: 07:29 kb 08/07 06:50 Order name: XRAY Chest (1 view); Complete Time: 08:29 kb 08/07 06:50 Order name: EKG; Complete Time: 06:51 kb 08/07 06:50 Order name: Cardiac monitoring; Complete Time: 06:53 kb 08/07 06:50 Order name: EKG - Nurse/Tech; Complete Time: 06:53 kb 08/07 06:50 Order name: IV Saline Lock; Complete Time: 07:00 kb 08/07 06:50 Order name: Labs collected and sent; Complete Time: 07:00 kb 08/07 06:50 Order name: O2 Per Protocol; Complete Time: 06:53 kb 08/07 06:50 Order name: O2 Sat Monitoring; Complete Time: 06:53 kb Administered Medications: 06:59 Drug: Aspirin Chewable Tablet 324 mg Route: PO; ed1 Disposition: 18:21 Co-signature as Attending Physician, Darby BLAKE I agree with the assessment tw4 and plan of care. Disposition: 08/07/18 08:17 Hospitalization ordered by Ivana Rodriguez for Observation. Preliminary diagnosis are Chest pain, unspecified, Dyspnea. - Bed requested for Telemetry/MedSurg (observation). - Status is Observation. ph - Condition is Stable. - Problem is new. - Symptoms have improved. UTI on Admission? No Signatures: Dispatcher [employer] EDMS Darby Miller FNP-C FNP-CkKvng Acosta em1 Diamante Alexander RN RN ed1 Anna Perez RN RN ak1 Aubree Christianson RN RN Adrian Tamez MD MD tw4 Corrections: (The following items were deleted from the chart) 09:07 08:17 Hospitalization Ordered by Ivana Rodriguez MD for Observation. Preliminary diagnosis em1 is Chest pain, unspecified; Dyspnea. Bed requested for Telemetry/MedSurg (observation). Status is Observation. Condition is Stable. Problem is new. Symptoms have improved. UTI on Admission? No. kb 09:38 09:07 08/07/2018 08:17 Hospitalization Ordered by Ivana Rodriguez MD for Observation. ph Preliminary diagnosis is Chest pain, unspecified; Dyspnea. Bed requested for Telemetry/MedSurg (observation). Status is Observation. Condition is Stable. Problem is new. Symptoms have improved. UTI on Admission? No. em1
--- NOTE | 2018-08-07 08:18 | ER ---
Nurse's Notes [facility] Name: Gregory Richardson Jr Age: 43 yrs Sex: Male : 1975 Arrival Date: 08/07/2018 Time: 06:37 Bed 8 Private MD: Billy Granger T Diagnosis: Chest pain, unspecified;Dyspnea Presentation: 08/07 06:46 Presenting complaint: Patient states: SOB woke him at 0200 this morning. pt c/o nausea ak1 with increased SOB. pt had heart stent placed "a few weeks ago" by Dr. Guerra. Transition of care: patient was not received from another setting of care. Onset of symptoms was August 07, 2018. Risk Assessment: Do you want to hurt yourself or someone else? Patient reports no desire to harm self or others. Initial Sepsis Screen: Does the patient meet any 2 criteria? No. Patient's initial sepsis screen is negative. Does the patient have a suspected source of infection? No. Patient's initial sepsis screen is negative. Care prior to arrival: None. 06:46 Method Of Arrival: Wheelchair ak1 06:46 Acuity: RHIANNON 3 ak1 Triage Assessment: 06:51 General: Appears in no apparent distress. Behavior is calm, cooperative. Pain: Denies ak1 pain. EENT: No signs and/or symptoms were reported regarding the EENT system. Neuro: No deficits noted. Cardiovascular: Reports shortness of breath. Respiratory: Reports shortness of breath at rest on exertion since 0200. GI: Reports nausea. : No signs and/or symptoms were reported regarding the genitourinary system. Derm: No signs and/or symptoms reported regarding the dermatologic system. Musculoskeletal: No signs and/or symptoms reported regarding the musculoskeletal system. Historical: - Allergies: 06:49 No Known Allergies; ak1 - Home Meds: 06:49 Plavix 75 mg Oral tab 1 tab once daily [Active]; Metoprolol Tartrate Oral [Active]; ak1 Crestor oral oral [Active]; - PMHx: 06:49 Hypertension; Hyperlipidemia; ak1 - PSHx: 06:49 Heart stents; ak1 - Immunization history:: Adult Immunizations unknown. - Social history:: Smoking status: Patient uses tobacco products, smokes one-half pack cigarettes per day, chewing tobacco. - Ebola Screening: : No symptoms or risks identified at this time. Screenin:50 Abuse screen: Denies threats or abuse. Denies injuries from another. Nutritional ak1 screening: No deficits noted. Tuberculosis screening: No symptoms or risk factors identified. Fall Risk None identified. Assessment: 06:52 GI: Abdomen is round. ak1 06:52 Reassessment: Patient appears in no apparent distress at this time. No changes from ak1 previously documented assessment. see triage assessment. 08:15 Reassessment: Patient appears in no apparent distress at this time. Patient and/or ph family updated on plan of care and expected duration. Pain level reassessed. Patient is alert, oriented x 3, equal unlabored respirations, skin warm/dry/pink. Pt resting quietly, denies pain, awaiting room assignment, VSS. Vital Signs: 06:50 BP 182 / 91; Pulse 74; Resp 20; Temp 97.6(O); Pulse Ox 100% on R/A; Weight 99.79 kg ak1 (R); Height 5 ft. 10 in. (177.80 cm) (R); Pain 0/10; 08:00 BP 161 / 87; Pulse 64; Resp 18; Pulse Ox 99% on R/A; ph 09:00 BP 141 / 84; Pulse 62; Resp 17; Pulse Ox 100% on R/A; Pain 0/10; dh3 06:50 Body Mass Index 31.57 (99.79 kg, 177.80 cm) ak1 ED Course: 06:37 Patient arrived in ED. es 06:37 Billy Granger MD is Private Physician. es 06:45 Darby Miller FNP-C is [facility]. kb 06:45 Adrian Tamez MD is Attending Physician. kb 06:45 Anna Perez, ROEL is Primary Nurse. ak1 06:47 Triage completed. ak1 06:50 Arm band placed on Patient placed in an exam room, on a stretcher, on cardiac surgeon, ak1 on pulse oximetry, Patient notified of wait time. EKG completed in triage. Results shown to MD. 06:52 Patient has correct armband on for positive identification. Placed in gown. Bed in low ak1 position. Call light in reach. Side rails up X 1. insulation machine operator on. Pulse ox on. NIBP on. 07:03 Inserted saline lock: 20 gauge in right antecubital area, using aseptic technique. lp1 Blood collected. 07:49 X-ray completed. Portable x-ray completed in exam room. Patient tolerated procedure jb2 well. 07:50 XRAY Chest (1 view) In Process Unspecified. EDMS 08:17 Ivana Rodriguez MD is Hospitalizing Provider. kb 09:30 No provider procedures requiring assistance completed. Patient admitted, IV remains in ph place. Administered Medications: 06:59 Drug: Aspirin Chewable Tablet 324 mg Route: PO; ed1 Outcome: 08:17 Decision to Hospitalize by Provider. kb 09:38 Patient left the ED. ph 09:38 Admitted to Tele accompanied by tech, via wheelchair. ph 09:38 Condition: stable 09:38 Instructed on the need for admit. Signatures: Dispatcher [employer] EDMS Darby Miller, TUTOR COORDINATOR-C TUTOR COORDINATOR-CkMarci Nixon Jesse jb2 Diamante Alexander RN RN ed1 Vijaya Hernandez RN RN lp1 Anna Perez RN RN ak1 Aubree Christianson, RN RN Mauri, Tamar 3 Corrections: (The following items were deleted from the chart) 06:49 06:46 Presenting complaint: Patient states: SOB woke him at 0200 this morning. pt c/o ak1 nausea with increased SOB. pt had heart stint placed "a few weeks ago" by Dr. Guerra. ak1
--- NOTE | 2018-08-07 08:21 | RAD REPORT ---
EXAM DESCRIPTION: RAD - Chest Single View - 08/07/2018 7:50 am CLINICAL HISTORY: CHEST PAIN Chest pain. COMPARISON: Chest Single View dated 07/23/2018; CHEST SINGLE VIEW dated 02/01/2011 FINDINGS: Portable technique limits examination quality. The lungs are grossly clear. The heart is normal in size. No displaced fractures. IMPRESSION: No acute intrathoracic process suspected.
[2018-08-07] MEDS ORDERED: POTASSIUM CL SA 10 MEQ TAB PO ONE (11:00)
[2018-08-07] MEDS: ACETAMINOPHEN 500 MG TAB PO PRN (11:09)
[2018-08-07] MEDS: FUROSEMIDE 40 MG TABLET PO SCH (12:28)
--- NOTE | 2018-08-07 13:09 | CON ---
Date of Consultation: 08/07/2018 History Of Present Illness: Mr. Richardson is 43-year-old, came to the hospital, pain complaint beginning a t 2 a.m., nausea, sweating. He was not having chest pain. About 2 weeks ago, he had a stent placed in his right coronary. He did well from that. He continues not to have chest pain. He notes some s hortness of breath and he notes claudication in his legs. He thinks it is possibly due to the fact t hat he now is able to walk more and not get chest pain and now he is having other troubles. He has b een a heavy cigarette smoker all his life, went from 2 packs per day to 3 cigarettes per day in the l ast 2 weeks. Medications: Outpatient medications are metoprolol, Plavix, atorvastatin, and aspirin. Allergies: HE HAS NO ALLERGIES. Physical Examination: General: Appears to be his stated age of 43, 5 feet 10 inches, 220 pounds, obese, alert, oriented, p leasant, not in distress. Lungs: Clear. Cardiac: Normal radial catheterization site. Normal femoral arteries. No bruit. Distal pulses are palpable. Laboratory Data: Troponin is less than 0.02. His N-terminal proBNP is 1240. Creatinine 0.8. Hemog lobin 15.3. Impression: The patient may have some restenosis, having heart failure symptoms. We will do an echo . . SH/MODL Voice ID: [id number] Report ID: [id number]
[2018-08-07 14:17] VITALS: BMI 33.5
[2018-08-07 14:43] LABS: Urine Appearance CLEAR; Urine Bilirubin NEGATIVE (NEG); Urine Blood NEGATIVE (NEG); Urine Color YELLOW; Urine Glucose NEGATIVE (NEG); Urine Protein NEGATIVE (NEG); Urine Urobilinogen 0.2 mg/dL (0.2-1.0)
--- NOTE | 2018-08-07 14:43 | ECHO ---
HEIGHT: 5 ft 10 in WEIGHT: 233 lb 4.8 oz DATE OF STUDY: 08/07/[address]: Ivana Rodriguez MD 2-DIMENSIONAL: YES M.MODE: YES DOPPLER: YES COLOR FLOW: YES TDS: PORTABLE: DEFINITY: BUBBLE STUDY: DIAGNOSIS: CHEST PAIN/CHEST PRESSURE CARDIAC HISTORY: CATHERIZATION: YES SURGERY: NO PROSTHETIC VALVE: NO PACEMAKER: NO MEASUREMENTS (cm) DIASTOLIC (NORMALS) SYSTOLIC (NORMALS) IVSd 0.8 (0.6-1.2) LA Diam 3.0 (1.9-4.0) LVEF 65% LVIDd 5.2 (3.5-5.7) LVIDs 3.3 (2.0-3.5) %FS 36% LVPWd 0.8 (0.6-1.2) Ao Diam 3.0 (2.0-3.7) 2 DIMENSIONAL ASSESSMENT: RIGHT ATRIUM: NORMAL LEFT ATRIUM: NORMAL RIGHT VENTRICLE: NORMAL LEFT VENTRICLE: NORMAL TRICUSPID VALVE: NORMAL MITRAL VALVE: NORMAL PULMONIC VALVE: NORMAL AORTIC VALVE: NORMAL PERICARDIAL EFFUSION: NONE AORTIC ROOT: NORMAL LEFT VENTRICULAR WALL MOTION: NORMAL DOPPLER/COLOR FLOW: NORMAL COMMENTS: NORMAL TWO DIMENSIONAL ECHOCARDIOGRAM WITH DOPPLER. TECHNOLOGIST: DOMINGO VO
[2018-08-07 14:47] LABS: Urine Microscopic Reflex NO UMIC
--- NOTE | 2018-08-07 17:57 | P.HP ---
Certification for Inpatient Patient admitted to: Observation Practitioner: I am a practitioner with admitting privileges, knowledge of patient current condition, hospital course, and medical plan of care. Services: Services provided to patient in accordance with Admission requirements found in Title 42 Section 412.3 of the Code of Federal Regulations Patient History Date of Service: 08/07/18 Reason for admission: Chest pain History of Present Illness: This is a 43-year-old male with a recent heart catheterization and stent placement 1 week ago admitted for chest pain. Per patient, he has been having intermittent chest pain for the past 1 day that will come up from sleep Around 2 :00 a.m. the night prior to admission. Describes it as a pressure-like feeling that woke up from sleep. He was very restless from to 3:00 a.m.. This pressure -like feeling was associated with headache, shortness of breath/could catch his breath and nausea. He finally got out of bed, took a shower. He states that that did help so he took his medications and went to work. His symptoms did not improve therefore he came into the ER. He states that this felt different from the symptoms he was having prior to the stent. In the ER, his chest pressure/pain had improved, he remained hemodynamically stable, though his blood pressure was slightly elevated. His troponins were negative x1, EKG without any acute changes. At the time of my exam, he is alert oriented x3, hemodynamically stable and his symptoms have slightly improved. Allergies No Known Drug Allergies Allergy (Verified 07/24/18 07:20) Unknown Home Medications: Atorvastatin Calcium [Lipitor] 80 mg PO BEDTIME 08/07/18 Clopidogrel Bisulfate [Plavix] 75 mg PO DAILY 08/07/18 Metoprolol Tartrate 50 mg PO BID 08/07/18 - Past Medical/Surgical History Has patient received pneumonia vaccine in the past: No Diabetic: No -: hypertension -: hypercholesterolemia -: Tobacco Dependence -: left shoulder surgery - Social History Smoking Status: Current some day smoker Alcohol use: Yes CD- Drugs: No Caffeine use: Yes Place of Residence: Home Review of Systems 10-point ROS is otherwise unremarkable Physical Examination - Vital Signs Temperature: 97.6 F Blood Pressure: 142/84 Pulse: 60 Respirations: 20 Pulse Ox (%): 96 - Physical Exam General: Alert, In no apparent distress, Oriented x3 HEENT: Atraumatic, PERRLA, Mucous membr. moist/pink, EOMI, Sclerae nonicteric Neck: Supple, 2+ carotid pulse no bruit, No LAD, Without JVD or thyroid abnormality Respiratory: Clear to auscultation bilaterally, Normal air movement Cardiovascular: Regular rate/rhythm, Normal S1 S2 Gastrointestinal: Normal bowel sounds, No tenderness Musculoskeletal: No tenderness Integumentary: No rashes Neurological: Normal gait, Normal speech, Normal strength at 5/5 x4 extr, Normal tone, Normal affect - Studies Laboratory Data (last 24 hrs) 08/07/18 07:01: PT 12.0, INR 1.02 08/07/18 07:01: WBC 7.3 D, Hgb 15.3, Hct 44.4, Plt Count 245 08/07/18 07:01: Sodium 142, Potassium 3.9, BUN 10, Creatinine 0.80, Glucose 88, Magnesium 2.2, Total Bilirubin 0.4, AST 18, ALT 50, Alkaline Phosphatase 107 Assessment and Plan - Problems (Diagnosis) (1) Chest pain Current Visit: Yes Status: Acute (2) Recent heart catheterization Current Visit: Yes Status: Acute (3) Hyperlipidemia Current Visit: Yes Status: Acute (4) Tobacco abuse Onset Date: 07/24/18 Current Visit: No Status: Acute (5) HTN (hypertension) Onset Date: 07/24/18 Current Visit: No Status: Chronic Qualifiers: - Plan This is a 43-year-old male with: Chest pain Recent heart catheterization with stent placement Hypertension Hyperlipidemia Tobacco dependence Admit patient to floor with tele. Cardiology consult Restart home medications, once reconciled Echo ordered, pending DVT prophylaxis: Plavix and aspirin GI prophylaxis: None Diet: Heart healthy, NPO after midnight Disposition: Pending cardiology evaluation and symptomatic improvement. - Advance Directives Does patient have a Living Will: No Does patient have a Durable POA for Healthcare: No Time Spent Managing Pts Care (In Minutes): 55
[2018-08-07] MEDS: TEMAZEPAM 15 MG CAP PO PRN (21:28)
[2018-08-07] MEDS: METOPROLOL TAR 50 MG TAB PO SCH (21:29)
[2018-08-07] MEDS: ATORVASTATIN 80 MG TAB PO SCH (21:29)
[2018-08-08 04:13] LABS: Absolute Lymphocytes (CBC) 2.6 K/uL (0.7-4.9); Absolute Monocytes 0.8 K/uL (0.1-1.3); Absolute Neutrophil 5.3 K/uL (1.8-8.0); Basophils % 0.6 % (0-1.3); Hematocrit 45.3 % (39.6-49.0); Lymphocytes % 28.6 % (15.3-44.8); MPV 8.5 fL (7.6-11.3); Monocytes % 8.6 % (3.3-12.3); RBC Red Blood Cell Count 4.85 M/uL (4.33-5.43)
[2018-08-08 04:30] LABS: ALT/SGPT 62 U/L (12-78); AST/SGOT 23 U/L (15-37); Albumin 3.7 g/dL (3.4-5.0); Alkaline Phosphatase 95 U/L (45-117); BUN Blood Urea Nitrogen 12 mg/dL (7-18); Bicarbonate 30 mmol/L (21-32); Bilirubin Total 0.4 mg/dL (0.2-1.0); Glucose Level 100 mg/dL (74-106); Magnesium 2.3 mg/dL (1.8-2.4); Potassium 4.5 mmol/L (3.5-5.1); Sodium Level 142 mmol/L (136-145)
[2018-08-08] MEDS: ACETAMINOPHEN 500 MG TAB PO PRN ×2 (07:13→15:12)
--- NOTE | 2018-08-08 07:27 | P.PN ---
Subjective Date of Service: 08/08/18 Patient is a 43yo who was admitted to the hospital with chest pain. Patient was recently diagnosed with coronary artery disease and had a stent placed. Patient started having chest pain yesterday. They resolved. The chest pain has continued today. It woke him up last night and then he had some chest pain this morning. The EKG and troponins ordered. EKG with no significant changes from his initial admission EKGs. Will also notify Cardiology as patient is scheduled for a stress test this morning. Will need to get her per will in order to continue. Hopefully, this adjust occasional pain and will just have to get the symptomatic control it going for. EKG and labs pending. Review of Systems 10-point ROS is otherwise unremarkable Physical Examination - Vital Signs Temperature: 97.7 F Blood Pressure: 139/78 Pulse: 56 Respirations: 18 Pulse Ox (%): 95 - Physical Exam General: Alert, In no apparent distress, Oriented x3 Respiratory: Clear to auscultation bilaterally, Normal air movement Cardiovascular: Regular rate/rhythm, Normal S1 S2, No murmurs Gastrointestinal: Soft and benign, Non-distended - Studies Laboratory Data (last 24 hrs) 08/07/18 07:01: PT 12.0, INR 1.02 08/07/18 07:01: WBC 7.3 D, Hgb 15.3, Hct 44.4, Plt Count 245 08/07/18 07:01: Sodium 142, Potassium 3.9, BUN 10, Creatinine 0.80, Glucose 88, Magnesium 2.2, Total Bilirubin 0.4, AST 18, ALT 50, Alkaline Phosphatase 107 Assessment & Plan - Problems (Diagnosis) (1) History of coronary artery disease Current Visit: Yes Status: Acute (2) Status post coronary artery stent placement Current Visit: Yes Status: Acute (3) Unstable angina Current Visit: Yes Status: Acute (4) Tobacco abuse Onset Date: 07/24/18 Current Visit: No Status: Acute (5) HTN (hypertension) Onset Date: 07/24/18 Current Visit: No Status: Chronic Qualifiers: - Plan Plan: 1. Notify Cardiology prior to stress test 2. Pain control 3. EKG and troponin 4. Monitor hemodynamics closely - Advance Directives Does patient have a Living Will: No Does patient have a Durable POA for Healthcare: No - Code Status/Comfort Care Code Status Assessed: Yes Code Status: Full Code Critical Care: No Time Spent Managing PTS Care (In Minutes): 35
[2018-08-08] MEDS ORDERED: REGADENOSON 0.4 MG/5 ML SYR IV ONE (08:16)
[2018-08-08] MEDS: CLOPIDOGREL 75 MG TABLET PO SCH (10:47)
[2018-08-08] MEDS: METOPROLOL TAR 50 MG TAB PO SCH ×2 (10:47→20:25)
[2018-08-08] MEDS: FUROSEMIDE 40 MG TABLET PO SCH (10:48)
--- NOTE | 2018-08-08 13:21 | RAD REPORT ---
EXAM DESCRIPTION: NM - Rest Stress Cardiac Imaging - 08/08/2018 1:06 pm CLINICAL HISTORY: Chest pain COMPARISON: None. TECHNIQUE: The patient was administered approximately 10 mCi of Tc 99m Sestamibi prior to resting SP ECT imaging of the heart. The patient was then administered approximately 30 mCi of Tc 99m Sestamibi following exercise or pharmacologic stress. Multiplanar SPECT images were reviewed. FINDINGS: The end diastolic volume is 144 ml, the end systolic volume is 79 ml, and the ejection fra ction is 45 %. A large fixed defect is present anterior wall at the base extending into the anterolateral wall in th e midportion. [place] is spared. There is a large fixed defect involving the inferior wall extending int o the lateral wall. This extends from base to apex. Lateral wall myocardium between the 2 large fixed defects shows diminished activity on stress imaging relative to rest imaging. Anterior apex and sept al maldonado show no suspicious finding. IMPRESSION: Lateral wall stress ischemia is identifiable between 2 areas of scarring involving anter olateral and inferolateral maldonado. End-diastolic volume is enlarged at 1:00 44 milliliters. Ejection fraction measured at 45%.
--- NOTE | 2018-08-08 14:45 | P.PN ---
Subjective Date of Service: 08/08/18 Chief Complaint: Chest pain Subjective: No new changes Patient seen and examined at bedside. at bedside. Chart reviewed and case discussed with nursing staff. Overnight, patient had episodes of similar chest discomfort. Patient was also seen going downstairs to smoke x2 in between his stress test Review of Systems 10-point ROS is otherwise unremarkable Physical Examination - Vital Signs Temperature: 97.7 F Blood Pressure: 145/86 Pulse: 64 Respirations: 18 Pulse Ox (%): 96 - Physical Exam General: Alert, In no apparent distress, Oriented x3 HEENT: Atraumatic, PERRLA, EOMI Neck: Supple, JVD not distended Respiratory: Clear to auscultation bilaterally, Normal air movement Cardiovascular: Regular rate/rhythm, Normal S1 S2 Gastrointestinal: Normal bowel sounds, No tenderness Musculoskeletal: No tenderness Integumentary: No rashes Neurological: Normal speech, Normal tone, Normal affect Lymphatics: No axilla or inguinal lymphadenopathy Assessment And Plan - Current Problems (Diagnosis) (1) Chest pain Current Visit: Yes Status: Acute (2) Recent heart catheterization Current Visit: Yes Status: Acute (3) Hyperlipidemia Current Visit: Yes Status: Acute (4) Tobacco abuse Onset Date: 07/24/18 Current Visit: No Status: Acute (5) HTN (hypertension) Onset Date: 07/24/18 Current Visit: No Status: Chronic Qualifiers: - Plan This is a 43-year-old male with: Chest pain Recent heart catheterization with stent placement Hypertension Hyperlipidemia Tobacco dependence Cardiology consult, recommendations appreciated. Continue home medication Echo performed, it which was normal. Ejection fraction of 65% DVT prophylaxis: Plavix and aspirin GI prophylaxis: None Diet: Heart healthy, NPO after midnight Disposition: Pending cardiology evaluation, stress test and symptomatic improvement.
--- NOTE | 2018-08-08 14:57 | TREADPHA ---
DX: CHEST PAIN Date of Study: 08/08/18 Ht: 5 10 Wt: 233 lb 4.8 oz Consulting Physician: ELPIDIO MEDICATIONS: TYLENOL, LIPITOR, PLAVIX, LOPRESSOR, LASIX HISTORY: 43 YEAR OLD MALE WITH COMPLAINTS OF CHEST PAIN. HISTORY: HYPERTENSION, HYPERLIPIDEMIA, STENT PLACEMENT, 07/24/18-RCA. SMOKES 4 CIGARETTES DAILY, 2 BEERS A WEEK. PHYSICIAL EXAMINATION: RESTING B.P.: 150/98 RESTING H.R.: 57 RESTING EKG: SINUS BRADYCARDIA, OLD MYOCARDIAL INFARCTION. PROTOCOL: LEXISCAN EXERCISE TIME: 3:30 B.P. AT PEAK STRESS: 125/84 IMPRESSION: LEXISCAN INJECTED, FOLLOWED BY CARDIOLITE PER PROTOCOL. SEE NUCLEAR MEDICINE REPORT. NO SUPRA VENTRICULAR TACHYCARDIA. NO VENTRICULAR TACHYCARDIA, NO PREMATURE ATRIAL COMPLEXES, NO PREMATURE VENTRICULAR COMPLEXES. PATIENT REPORTED NO CHEST PAIN OR TIGHTNESS THROUGHOUT PROCEDURE OR IN RECOVERY.
[2018-08-08] MEDS: ATORVASTATIN 80 MG TAB PO SCH (20:25)
[2018-08-08] MEDS: TEMAZEPAM 15 MG CAP PO PRN (20:25)
[2018-08-08] MEDS: HYDROCODONE/APAP 10/325 TAB PO PRN (20:26)
[2018-08-09] MEDS ORDERED: NA CHLORIDE 0.9% 1,000 ML ONE (04:03)
[2018-08-09] MEDS: CLOPIDOGREL 75 MG TABLET PO SCH (08:14)
[2018-08-09] MEDS: HYDROCODONE/APAP 10/325 TAB PO PRN (08:14)
[2018-08-09] MEDS: FUROSEMIDE 40 MG TABLET PO SCH (08:15)
[2018-08-09] MEDS: METOPROLOL TAR 50 MG TAB PO SCH (08:16)
[2018-08-09 08:17] VITALS: BP 134/81
[2018-08-09 09:07] VITALS: TEMP 97.2
[2018-08-09 09:44] VITALS: O2SAT 95
--- NOTE | 2018-08-09 12:31 | P.SSS ---
Patient History Date of Service: 08/09/18 Reason for admission: Chest pain History of Present Illness: This is a 43-year-old male with a recent heart catheterization and stent placement 1 week ago admitted for chest pain. Per patient, he has been having intermittent chest pain for the past 1 day that will come up from sleep Around 2 :00 a.m. the night prior to admission. Describes it as a pressure-like feeling that woke up from sleep. He was very restless from to 3:00 a.m.. This pressure -like feeling was associated with headache, shortness of breath/could catch his breath and nausea. He finally got out of bed, took a shower. He states that that did help so he took his medications and went to work. His symptoms did not improve therefore he came into the ER. He states that this felt different from the symptoms he was having prior to the stent. In the ER, his chest pressure/pain had improved, he remained hemodynamically stable, though his blood pressure was slightly elevated. His troponins were negative x1, EKG without any acute changes. At the time of my exam, he is alert oriented x3, hemodynamically stable and his symptoms have slightly improved. Allergies No Known Drug Allergies Allergy (Verified 07/24/18 07:20) Unknown Home Medications: Atorvastatin Calcium [Lipitor] 80 mg PO BEDTIME 08/07/18 Clopidogrel Bisulfate [Plavix*] 75 mg PO DAILY 08/07/18 Metoprolol Tartrate 50 mg PO BID 08/07/18 Nitroglycerin 0.3 mg SL SEECOM #10 tab.subl 08/09/18 - Past Medical/Surgical History Has patient received pneumonia vaccine in the past: No Diabetic: No -: hypertension -: hypercholesterolemia -: Tobacco Dependence -: left shoulder surgery - Social History Smoking Status: Current every day smoker Alcohol use: Yes CD- Drugs: No Caffeine use: Yes Place of Residence: Home Review of Systems 10-point ROS is otherwise unremarkable Physical Examination - Vital Signs Temperature: 97.2 F Blood Pressure: 134/81 Pulse: 60 Respirations: 16 Pulse Ox (%): 95 - Physical Exam General: Alert, In no apparent distress, Oriented x3 HEENT: Atraumatic, PERRLA, Mucous membr. moist/pink, EOMI, Sclerae nonicteric Neck: Supple, 2+ carotid pulse no bruit, No LAD, Without JVD or thyroid abnormality Respiratory: Clear to auscultation bilaterally, Normal air movement Cardiovascular: Regular rate/rhythm, Normal S1 S2 Gastrointestinal: Normal bowel sounds, No tenderness Musculoskeletal: No tenderness Integumentary: No rashes Neurological: Normal gait, Normal speech, Normal strength at 5/5 x4 extr, Normal tone, Normal affect Lymphatics: No axilla or inguinal lymphadenopathy - Diagnosis (Problem(s)) (1) Chest pain Status: Acute (2) Recent heart catheterization Status: Acute (3) Hyperlipidemia Status: Acute (4) Tobacco abuse Onset Date: 07/24/18 Status: Acute (5) HTN (hypertension) Onset Date: 07/24/18 Status: Chronic Qualifiers: Treatment Summary: Patient was admitted for chest pain after a recent heart catherization with stent placement. Cardiology was consulted. Patient underwent a stress test, which was equivocal. Per Cardiolgoy, Patient was recommended cardiology followup with a cath on Sunday as an outpatient. An Echo was performed, it which was normal. Ejection fraction of 65% It was also noted that patient was going down to smoke multiple times throughout this admission. He also went down to smoke twice in between his 2 stress tests. He was counseled extensively on smoking cessation. Unsure if patient is willing to stop smoking at this time. he was cleared for discharge from cardiology point of view. At the time of discharge, he was AAOx3, in no acute distress and symptom free. - Disposition Discharge Date: 08/09/18 Disposition: ROUTINE DISCHARGE Condition: GOOD Consultations: Cardiology Patient Discharge Instructions: Please follow up with Dr. nam on 08/12/18. Diet: AHA Activity: Ad tierney Time Spent Managing Pts Care (In Minutes): 55
--- NOTE | 2018-08-09 22:30 | EKG ---
Test Date: 2018-08-09 Test Time: 02:50:19 Mining Engineering Technologist: CURT MEASUREMENT RESULTS: Intervals: Rate: 50 UT: 154 QRSD: 100 QT: 466 QTc: 424 [place]: P: 42 UT: 154 QRS: 32 T: -8 INTERPRETIVE STATEMENTS: Sinus bradycardia Possible Inferior infarct, age undetermined Abnormal ECG Compared to ECG 08/08/2018 06:41:43 No significant changes Electronically Signed On 08-09-18 22:28:03 MANAGER PLANT by Devonte Mcallister
--- NOTE | 2018-08-10 03:39 | PN ---
Date of Progress Note: 08/08/2018 Mr. Richardson is 43 years old, had a RCA stent recently, came back with atypical chest pain and palpitation . A stress test is pending today. An echocardiogram, which was done, is normal. EKG showed some pe aked T-waves anteriorly, more consistent with early repolarization. His catheterization did not show any LAD disease. We will wait to see what the Lexiscan shows prior to making any final decisions. As stated earlier, his echocardiogram was normal. He is chest pain free today. Telemetry is normal. MARSHA/RENEE Voice ID: [id number] Report ID: [id number]
== END 2018-08-09 10:00 | disposition home or self-care (01) ==
LOC: ER 06:36 → ERHOLD 08:19 → 4TH 09:16
PROVIDERS: ADMIT Family Medicine; ATTEND Family Medicine
DX: R07.9 Chest pain, unspecified (principal); E78.5 Hyperlipidemia, unspecified; I10 Essential (primary) hypertension; I25.10 Atherosclerotic heart disease of native coronary artery without angina pectoris; Z95.5 Presence of coronary angioplasty implant and graft; F17.210 Nicotine dependence, cigarettes, uncomplicated
CPT/HCPCS: 36415; 71045; 78452; 80048; 80053; 80076; 81003; 83735; 83880; 84484; 85025; 85610; 93005; 93017; 93306; 99285; A9500; G0378; J2785; J7030

== ENCOUNTER 2018-08-12 07:23 | Day surgery (SDC) | payer BC ==
[2018-08-12] MEDS ORDERED: NA CHLORIDE 0.9% 500 ML ONE ×2 (08:49→10:41)
[2018-08-12] MEDS ORDERED: HEPA 1000U/500MLS 2,000 UNIT/1,000 ML BAG IV ONE (09:57)
[2018-08-12] MEDS ORDERED: HEPARIN 5000 UNIT/ML 1 ML VIAL ONE (09:58)
[2018-08-12] MEDS ORDERED: NICARDIPINE HCL 25 MG/10 ML IV ONE (09:58)
[2018-08-12] MEDS ORDERED: NA CHLORIDE 0.9% 0 ML ONE (09:58)
[2018-08-12] MEDS ORDERED: ATROPINE SULF 1 MG/10 ML SYR IV ONE (09:58)
[2018-08-12] MEDS ORDERED: LIDOCAINE 1% MPF 30 ML VIAL ONE (10:08)
[2018-08-12] MEDS ORDERED: MIDAZOLAM HCL 2 MG/2 ML INJ ONE (10:50)
[2018-08-12] MEDS ORDERED: FENTANYL CITR 100 MCG/2 ML ONE (10:51)
[2018-08-12] MEDS ORDERED: CLOPIDOGREL 75 MG TABLET ONE (11:44)
[2018-08-12 12:10] VITALS: TEMP 97.5; O2SAT 98
[2018-08-12] MEDS ORDERED: ACETAMINOPHEN 325 MG TABLET ONE (13:04)
[2018-08-12 15:38] VITALS: BP 127/73
--- NOTE | 2018-08-12 22:44 | OP ---
Date of Procedure: 08/12/2018 Surgeon: Porter Guerra MD Procedures: Left heart catheterization, coronary and left ventricular angiography. Findings: The patient had a right coronary stent placed about 2 weeks ago. It is widely patent, EVERARDO I-3 flow. It is in the mid to distal portion of the right coronary. He has an anomalous origin of h is circumflex and the artery that traverses from the right coronary toward the circumflex distributio n is small diameter, diffusely diseased. It gives rise to a small bed. The obtuse marginal itself i s about 1.5 mm. The branch has a 50% to 60% lesion that probably accounts for the stress test abnorm ality, but in my opinion it is not amenable to angioplasty; it would very likely result in injury to the proximal portion of the right coronary, and we elected to not do a stent on that 2 weeks ago, I E lect for the same thing today. His left coronary; he does not really have a classical left main debbie use it does not branch into a circumflex and LAD. It is just an LAD origin. There is minimal plaque . No significant stenosis anywhere. Left ventricular ejection fraction normal. All the pressures w ere normal. Left ventricular end-diastolic pressure was less than 10 and the decision was made to co ntinue medical therapy, aspirin, Plavix, metoprolol, p.r.n. nitroglycerin, and Lipitor 80 mg a day. He is also to quit smoking. He is down to about 3 cigarettes per day. Procedure In Detail: The patient had an abnormal Cardiolite stress test. He was brought to the [facility] medical lab director in a fasting state, sedated with Versed and fentanyl, prepared and draped in usual steri le fashion. Right radial artery was used. The artery was entered using a 21-gauge needle, cannulate d with a 0.021 inch diameter guidewire and then a 6-Ku[place]i Terumo radial sheath was placed. As soon as it was in, we were able to flush it and administer a radial cocktail consisting of nicardipine, he zena, and nitroglycerin. We used a TIG catheter to angiogram the right coronary. It would not enga ge the LAD very well, so we switched to a Mike and we used the Mike due to the LV gram as well. Th e catheters were exchanged over exchange length J-wire. After analyzing the pictures and making deci sions, we decided for medical therapies. All catheters and wires were removed. The sheath flushed, removed, and the arteriotomy was closed with a TR band. Complications From The Procedure: None. MARIO/RENEE Voice ID: [id number] Report ID: [id number]
== END 2018-08-12 13:50 | disposition home or self-care (01) ==
LOC: CCL 07:23
PROVIDERS: ATTEND Internal Medicine
PROC: 4A023N7 Measurement of Cardiac Sampling and Pressure, Left Heart, Percutaneous Approach (ICD-10-PCS; principal; 2018-08-12)
PROC: B200YZZ Plain Radiography of Single Coronary Artery using Other Contrast (ICD-10-PCS; 2018-08-12)
PROC: B205YZZ Plain Radiography of Left Heart using Other Contrast (ICD-10-PCS; 2018-08-12)
DX: I25.10 Atherosclerotic heart disease of native coronary artery without angina pectoris (principal); Q24.5 Malformation of coronary vessels; I10 Essential (primary) hypertension; E78.5 Hyperlipidemia, unspecified; F17.210 Nicotine dependence, cigarettes, uncomplicated; Z95.5 Presence of coronary angioplasty implant and graft
CPT/HCPCS: 93458; C1893; J0583; J1644; J2250; J3010

== ENCOUNTER 2020-02-14 12:40 | Observation (INO) | payer BC, SELFPAY ==
[2020-02-14 13:48] LABS: Absolute Lymphocytes (CBC) 2.4 K/uL (0.7-4.9); Basophils % 1.1 % (0-1.3); Hematocrit 49.7 % (39.6-49.0); Lymphocytes % 24.5 % (15.3-44.8); Protime INR 1.02; RBC Red Blood Cell Count 5.19 M/uL (4.33-5.43)
[2020-02-14 14:04] LABS: ALT/SGPT 53 U/L (12-78); AST/SGOT 20 U/L (15-37); Alkaline Phosphatase 90 U/L (45-117); BUN Blood Urea Nitrogen 8 mg/dL (7-18); Bicarbonate 25 mmol/L (21-32); Bilirubin Direct < 0.1 mg/dL (0-0.2); Bilirubin Total 0.3 mg/dL (0.2-1.0); Glucose Level 119 mg/dL (74-106); Magnesium 2.3 mg/dL (1.8-2.4); NT PRO-BNP 13 pg/mL (<125); Potassium 3.7 mmol/L (3.5-5.1); Protein, Total 7.4 g/dL (6.4-8.2); Sodium Level 142 mmol/L (136-145); Troponin (Emerg Dept Use Only) < 0.02 ng/mL (0.0-0.045)
--- NOTE | 2020-02-14 14:12 | RAD REPORT ---
EXAM DESCRIPTION: RAD - Chest Single View - 02/14/2020 2:00 pm CLINICAL HISTORY: SOB Chest pain. COMPARISON: Chest Single View dated 08/07/2018; Chest Single View dated 07/23/2018; CHEST SINGLE VIEW dated 02/01/2011 FINDINGS: Portable technique limits examination quality. The lungs are grossly clear. The heart is normal in size. No displaced fractures. IMPRESSION: No acute intrathoracic process suspected.
--- NOTE | 2020-02-14 14:24 | ER ---
Nurse's Notes [facility] Name: Gregory Richardson Jr Age: 44 yrs Sex: Male : 1975 Arrival Date: 02/14/2020 Time: 12:42 Bed 14 Private MD: Diagnosis: Chest pain, unspecified;Essential (primary) hypertension;Tachycardia, unspecified;Tobacco abuse counseling;Tobacco use Presentation: 02/13 13:01 Chief complaint: Patient states: has been real shaky, can't catch his breath X 1 week, iw intermittent chest pains, hands stay tingly, can't grab anything, in both hands, hx of NH with stent placement. Coronavirus screen: At this time, the client does not indicate any symptoms associated with coronavirus-19. Ebola Screen: Patient negative for fever greater than or equal to 101.5 degrees Fahrenheit, and additional compatible Ebola Virus Disease symptoms Patient denies exposure to infectious person. Patient denies travel to an Ebola-affected area in the 21 days before illness onset. No symptoms or risks identified at this time. Initial Sepsis Screen: Does the patient meet any 2 criteria? No. Patient's initial sepsis screen is negative. Does the patient have a suspected source of infection? No. Patient's initial sepsis screen is negative. Risk Assessment: Do you want to hurt yourself or someone else? Patient reports no desire to harm self or others. Onset of symptoms was February 06, 2020. 13:01 Method Of Arrival: Ambulatory iw 13:01 Acuity: RHIANNON 2 iw Historical: - Allergies: 13:05 No Known Allergies; iw - Home Meds: 13:05 metoprolol tartrate 50 mg Oral tab 1 tab 2 times per day [Active]; clopidogrel 75 mg iw oral tab 1 tab once daily [Active]; - PMHx: 13:05 Hyperlipidemia; Hypertension; Myocardial infarction; iw - PSHx: 13:05 Heart stents; iw - Immunization history:: Adult Immunizations not up to date. - Social history:: Smoking status: Patient reports the use of cigarette tobacco products, smokes one-half pack cigarettes per day. Screenin:35 Abuse screen: Denies threats or abuse. Nutritional screening: No deficits noted. aa5 Tuberculosis screening: No symptoms or risk factors identified. Fall Risk None identified. Assessment: 13:20 General: Appears comfortable, Behavior is calm, cooperative. Pain: Denies pain. Neuro: aa5 Level of Consciousness is awake, alert, obeys commands, Oriented to person, place, time, situation. Cardiovascular: Reports chest pressure that began 1 week ago. Heart tones S1 S2 present Rhythm is sinus tachycardia. Respiratory: Reports shortness of breath Airway is patent Respiratory effort is even, unlabored, Respiratory pattern is regular, symmetrical, Breath sounds are clear bilaterally. Denies cough. GI: Abdomen is round Patient currently denies nausea, vomiting. : No signs and/or symptoms were reported regarding the genitourinary system. EENT: No signs and/or symptoms were reported regarding the EENT system. Derm: Skin is pink, warm \\T\\ dry. Musculoskeletal: Range of motion: intact in all extremities. 13:35 Reassessment: Pt reports he ran out of metoprolol 2 days ago, pt also states "I am aa5 supposed to be taking some medicine for high cholesterol but I stopped taking it a while back" . 13:40 Reassessment: Patient is alert, oriented x 3, equal unlabored respirations, skin aa5 warm/dry/pink. Pt sitting up in bed, x-ray at bedside. Pt notified of wait time for lab results. Offered warm blanket, pt refused. . 14:22 Reassessment: Patient is alert, oriented x 3, equal unlabored respirations, skin aa5 warm/dry/pink. Pt sitting up in bed, states no complaints at this time. . 15:30 Reassessment: Patient is alert, oriented x 3, equal unlabored respirations, skin aa5 warm/dry/pink. 15:30 Reassessment: Awaiting room assignment, pt notified of wait time. Pt reports Dr. samy Falcon (Hospitalist) rounded on him today. . 16:46 Reassessment: Patient is alert, oriented x 3, equal unlabored respirations, skin aa5 warm/dry/pink. Patient denies pain at this time. Vital Signs: 13:01 BP 178 / 113; Pulse 109; Resp 18 S; Pulse Ox 99% on R/A; Weight 106.59 kg; Height 5 ft. iw 10 in. (177.80 cm); Pain 0/10; 13:40 BP 166 / 100; Pulse 101; Resp 19 S; Temp 98.8(O); Pulse Ox 98% on R/A; aa5 14:30 BP 157 / 104; Pulse 63; Resp 18 S; Pulse Ox 96% on R/A; aa5 15:30 BP 155 / 96; Pulse 67; Resp 18 S; Temp 98.0(O); Pulse Ox 98% on R/A; aa5 13:01 Body Mass Index 33.72 (106.59 kg, 177.80 cm) iw ED Course: 12:42 Patient arrived in ED. ds1 13:03 Triage completed. iw 13:05 Arm band placed on. iw 13:16 Rahul Marr MD is Attending Physician. irena 13:20 Patient has correct armband on for positive identification. Bed in low position. Call aa5 light in reach. Side rails up X2. cabana attendant on. Pulse ox on. NIBP on. 13:24 Sena Jackson RN is Primary Nurse. aa5 13:35 Initial lab(s) drawn, by il, sent to lab. Inserted saline lock: 20 gauge in right aa5 forearm, using aseptic technique. Blood collected. 14:00 XRAY Chest (1 view) In Process Unspecified. EDMS 14:22 Betsy Falcon MD is Hospitalizing Provider. irena 16:12 CT completed. Patient tolerated procedure well. Patient moved back from CT. 16:46 No provider procedures requiring assistance completed. Patient admitted, IV remains in aa5 place. Administered Medications: 14:22 Drug: Lopressor 5 mg Route: IVP; Site: right forearm; aa5 14:30 Follow up: Response: No adverse reaction aa5 14:22 Drug: Lopressor (metoprolol TARTRATE) 50 mg Route: PO; aa5 15:30 Follow up: Response: No adverse reaction aa5 14:22 Drug: Aspirin Chewable Tablet 324 mg Route: PO; aa5 15:30 Follow up: Response: No adverse reaction aa5 14:22 Drug: Lipitor 20 mg Route: PO; aa5 15:30 Follow up: Response: No adverse reaction aa5 Outcome: 14:24 Decision to Hospitalize by Provider. irena 16:46 Admitted to Tele accompanied by tech, via wheelchair, with chart, Report called to aa5 ROEL Whitaker 16:46 Condition: stable 16:46 Instructed on the need for admit, Demonstrated understanding of instructions. 17:10 Patient left the ED. aa5 Signatures: Dispatcher [employer] Rahul Fitzpatrick MD MD cha Quilty, Betty bq Sanford, Demi ds1 Diandra Ko, ROEL RN Sena Rain RN RN aa5 Corrections: (The following items were deleted from the chart) 13:10 13:01 Acuity: RHIANNON 3 iw iw 13:46 13:40 BP 166 / 100; Pulse 101bpm; Resp 19bpm; Spontaneous; Pulse Ox 98% RA; aa5 aa5 16:48 14:30 Reassessment: Patient is alert, oriented x 3, equal unlabored respirations, skin aa5 warm/dry/pink. Pt sitting up in bed, states no complaints at this time. . aa5 16:49 15:30 Reassessment: Awaiting room assignment, pt notified of wait time. . aa5 aa5 17:25 17:25 Patient left the ED. aa5 aa5
--- NOTE | 2020-02-14 14:25 | EDPHYS ---
Physician Documentation [facility] Name: Gregory Richardson Jr Age: 44 yrs Sex: Male : 1975 Arrival Date: 02/14/2020 Time: 12:42 Bed 14 Private MD: ED Physician Rahul Marr HPI: 02/13 14:14 This 44 yrs old Male presents to ER via Ambulatory with complaints of High irena Blood Pressure, Shortness Of Breath. 14:14 The patient has elevated blood pressure and discovered this at home. Onset: The irena symptoms/episode began/occurred 2 day(s) ago. Modifying factors: The symptoms are aggravated by activity, The symptoms are alleviated by remaining still. Associated signs and symptoms: The patient has no apparent associated signs or symptoms. Severity of symptoms: At its worst the blood pressure was moderate, in the emergency department the blood pressure is unchanged. The patient has not experienced similar symptoms in the past. Historical: - Allergies: 13:05 No Known Allergies; iw - Home Meds: 13:05 metoprolol tartrate 50 mg Oral tab 1 tab 2 times per day [Active]; clopidogrel 75 mg iw oral tab 1 tab once daily [Active]; - PMHx: 13:05 Hyperlipidemia; Hypertension; Myocardial infarction; iw - PSHx: 13:05 Heart stents; iw - Immunization history:: Adult Immunizations not up to date. - Social history:: Smoking status: Patient reports the use of cigarette tobacco products, smokes one-half pack cigarettes per day. ROS: 14:15 Constitutional: Negative for fever, chills, and weight loss, Eyes: Negative for injury, irena pain, redness, and discharge, ENT: Negative for injury, pain, and discharge, Neck: Negative for injury, pain, and swelling, Respiratory: Negative for shortness of breath, cough, wheezing, and pleuritic chest pain, Abdomen/GI: Negative for abdominal pain, nausea, vomiting, diarrhea, and constipation, Back: Negative for injury and pain, : Negative for injury, bleeding, discharge, and swelling, MS/Extremity: Negative for injury and deformity, Skin: Negative for injury, rash, and discoloration, Neuro: Negative for headache, weakness, numbness, tingling, and seizure. 14:15 Cardiovascular: Positive for chest pain, palpitations. Exam: 14:15 Constitutional: This is a well developed, well nourished patient who is awake, alert, irena and in no acute distress. Head/Face: Normocephalic, atraumatic. Eyes: Pupils equal round and reactive to light, extra-ocular motions intact. Lids and lashes normal. Conjunctiva and sclera are non-icteric and not injected. Cornea within normal limits. Periorbital areas with no swelling, redness, or edema. ENT: Nares patent. No nasal discharge, no septal abnormalities noted. Tympanic membranes are normal and external auditory canals are clear. Oropharynx with no redness, swelling, or masses, exudates, or evidence of obstruction, uvula midline. Mucous membranes moist. Neck: Trachea midline, no thyromegaly or masses palpated, and no cervical lymphadenopathy. Supple, full range of motion without nuchal rigidity, or vertebral point tenderness. No Meningismus. Chest/axilla: Normal chest wall appearance and motion. Nontender with no deformity. No lesions are appreciated. Abdomen/GI: Soft, non-tender, with normal bowel sounds. No distension or tympany. No guarding or rebound. No evidence of tenderness throughout. Back: No spinal tenderness. No costovertebral tenderness. Full range of motion. Male : Normal genitalia with no discharge or lesions. Skin: Warm, dry with normal turgor. Normal color with no rashes, no lesions, and no evidence of cellulitis. MS/ Extremity: Pulses equal, no cyanosis. Neurovascular intact. Full, normal range of motion. Neuro: Awake and alert, GCS 15, oriented to person, place, time, and situation. Cranial nerves II-XII grossly intact. Motor strength 5/5 in all extremities. Sensory grossly intact. Cerebellar exam normal. Normal gait. Psych: Awake, alert, with orientation to person, place and time. Behavior, mood, and affect are within normal limits. 14:15 Cardiovascular: Rate: tachycardic, Rhythm: regular, Pulses: Pulses are 4+ in bilateral radial, brachial, femoral, popliteal, posterior tibial and and dorsalis pedis arteries.. Heart sounds: normal, Edema: is not appreciated, JVD: is not appreciated. 14:15 Musculoskeletal/extremity: Extremities: all appear grossly normal, with no appreciated pain with palpation, ROM: no acute changes, Circulation is intact in all extremities. Sensation intact. Compartment Syndrome exam of affected extremity: is normal. DVT Exam: No signs of deep vein thrombosis. 14:26 ECG was reviewed by the Attending Physician. [facility] Vital Signs: 13:01 BP 178 / 113; Pulse 109; Resp 18 S; Pulse Ox 99% on R/A; Weight 106.59 kg; Height 5 ft. iw 10 in. (177.80 cm); Pain 0/10; 13:40 BP 166 / 100; Pulse 101; Resp 19 S; Temp 98.8(O); Pulse Ox 98% on R/A; aa5 14:30 BP 157 / 104; Pulse 63; Resp 18 S; Pulse Ox 96% on R/A; aa5 15:30 BP 155 / 96; Pulse 67; Resp 18 S; Temp 98.0(O); Pulse Ox 98% on R/A; aa5 13:01 Body Mass Index 33.72 (106.59 kg, 177.80 cm) iw MDM: 13:16 Patient medically screened. [facility] 14:18 Data reviewed: vital signs, nurses notes, lab test result(s), EKG, radiologic studies, irena plain films. 14:19 Antibiotic administration: Not indicated. Differential diagnosis: Anxiety Reaction CHF irena exacerbation, acute myocardial infarction, congestive heart failure hypertensive crisis, Malignant HTN, hiatal hernia, pancreatitis, unstable angina, Myocardial Infarction pulmonary edema, Pulmonary Embolism reactive airway disease, Unstable Angina. HEART Score: History: Highly Suspicious (2), ECG: Normal (0), Age: > 45 and < 65 years (1), Risk Factors: > or = 3 Risk factors for atherosclerotic disease (2), [Hypercholesterolemia] [Hypertension] [Active Smoker] [+ Family HX] [Obesity] Troponin: < or = 1 x Normal Limit (0). The patient was given aspirin in the Emergency Department. The patient's Wells Deep Vein Thrombosis Score was calculated as follows: Total Score: 0. This patient was found to be at low risk for a deep vein thrombosis by using the Well's assessment criteria Total Score: 0-2 Pts- Low Risk. The patient's pulmonary embolism risk score was calculated as follows: Total Score: 0-2 points. This patient was found to be at low risk for a pulmonary embolism by using the Well's assessment criteria Total Score: 0-2 points. This patient was found to be at low risk for a pulmonary embolism by using the Well's assessment criteria. LEONEL Risk Score: 1 - Three or more CAD risk factors, 1- Known CAD, 1 - ASA use in past 7 days, 1 - Recent [<24hrs] Severe Angina, TOTAL SCORE = 4. Immunization status:. Data interpreted: hospital monitor: rate is 101 beats/min, rhythm is regular, Pulse oximetry: on room air is 98 %. Test interpretation: by ED physician or midlevel provider: ECG, plain radiologic studies. 14:24 ED course: obs to [facility] all labs and treatment given. [facility] 02/13 13:28 Order name: Basic Metabolic Panel; Complete Time: 14:13 02/13 13:28 Order name: CBC with Diff; Complete Time: 14:13 02/13 13:28 Order name: LFT's; Complete Time: 14:13 02/13 13:28 Order name: Magnesium; Complete Time: 14:13 02/13 13:28 Order name: NT PRO-BNP; Complete Time: 14:13 02/13 13:28 Order name: PT-INR; Complete Time: 14:13 02/13 13:28 Order name: Troponin (emerg Dept Use Only); Complete Time: 14:13 02/13 15:27 Order name: CBC with Automated Diff [facility] 02/13 15:27 Order name: CBC with Automated Diff [facility] 02/13 15:27 Order name: Comprehensive Metabolic Panel [facility] 02/13 15:27 Order name: Comprehensive Metabolic Panel [facility] 02/13 15:27 Order name: Troponin I [facility] 02/13 15:27 Order name: Troponin I [facility] 02/13 15:27 Order name: Troponin I [facility] 02/13 13:28 Order name: XRAY Chest (1 view); Complete Time: 14:13 02/13 13:28 Order name: EKG; Complete Time: 13:29 02/13 13:28 Order name: Cardiac monitoring; Complete Time: 13:41 02/13 13:28 Order name: EKG - Nurse/Tech; Complete Time: 13:41 02/13 13:28 Order name: IV Saline Lock; Complete Time: 13:41 02/13 13:28 Order name: Labs collected and sent; Complete Time: 13:41 02/13 13:28 Order name: O2 Per Protocol; Complete Time: 13:41 aa 02/13 15:26 Order name: CONS Pharmacy Consult [facility] 02/13 15:26 Order name: CONS Physician Consult [facility] 02/13 15:26 Order name: Heart Healthy [facility] 02/13 15:27 Order name: EKG Electrocardiogram [facility] 02/13 16:49 Order name: CT [facility] 02/13 13:28 Order name: O2 Sat Monitoring; Complete Time: 13:41 aa5 EC:26 Rate is 101 beats/min. Rhythm is regular. QRS [place] is Normal. WA interval is normal. irena QRS interval is normal. QT interval is normal. No Q waves. T waves are Normal. No ST changes noted. Clinical impression: Sinus tachycardia and No evidence of ischemia. Interpreted by me. Reviewed by me. Administered Medications: 14:22 Drug: Lopressor 5 mg Route: IVP; Site: right forearm; aa5 14:30 Follow up: Response: No adverse reaction aa5 14:22 Drug: Lopressor (metoprolol TARTRATE) 50 mg Route: PO; aa5 15:30 Follow up: Response: No adverse reaction aa5 14:22 Drug: Aspirin Chewable Tablet 324 mg Route: PO; aa5 15:30 Follow up: Response: No adverse reaction aa5 14:22 Drug: Lipitor 20 mg Route: PO; aa5 15:30 Follow up: Response: No adverse reaction aa5 Disposition: 02/14/20 14:24 Hospitalization ordered by Betsy Falcon for Observation. Preliminary diagnosis are Chest pain, unspecified, Essential (primary) hypertension, Tachycardia, unspecified, Tobacco abuse counseling, Tobacco use. - Bed requested for Telemetry/MedSurg (Inpatient). - Status is Observation. aa5 - Condition is Fair. - Problem is new. - Symptoms have improved. Signatures: Dispatcher [employer] [facility] Rahul Marr MD MD cha Williams, Irene RN RN Sena Rain RN RN [email or web address] Brianna Moran Corrections: (The following items were deleted from the chart) 16:04 14:24 Hospitalization Ordered by Betsy Falcon MD for Observation. Preliminary eb diagnosis is Chest pain, unspecified; Essential (primary) hypertension; Tachycardia, unspecified; Tobacco abuse counseling; Tobacco use. Bed requested for Telemetry/MedSurg (Inpatient). Status is Observation. Condition is Fair. Problem is new. Symptoms have improved. irena 16:14 16:04 02/14/2020 14:24 Hospitalization Ordered by Betsy Falcon MD for Observation. eb Preliminary diagnosis is Chest pain, unspecified; Essential (primary) hypertension; Tachycardia, unspecified; Tobacco abuse counseling; Tobacco use. Bed requested for Telemetry/MedSurg (Inpatient). Status is Observation. Condition is Fair. Problem is new. Symptoms have improved. eb 17:25 16:14 02/14/2020 14:24 Hospitalization Ordered by Betsy Falcon MD for Observation. aa5 Preliminary diagnosis is Chest pain, unspecified; Essential (primary) hypertension; Tachycardia, unspecified; Tobacco abuse counseling; Tobacco use. Bed requested for Telemetry/MedSurg (Inpatient). Status is Observation. Condition is Fair. Problem is new. Symptoms have improved. eb
[2020-02-14] MEDS ORDERED: ASPIRIN 81 MG CHEWABLE TABLET ONE (14:35)
[2020-02-14] MEDS ORDERED: ATORVASTATIN 20 MG TAB ONE (14:36)
[2020-02-14] MEDS ORDERED: METOPROLOL TAR 50 MG TAB ONE (14:36)
[2020-02-14] MEDS ORDERED: METOPROLOL TARTRATE 5 MG/5 ML INJ IV ONE (14:36)
[2020-02-14] MEDS ORDERED: ONDANSETRON 4 MG/2 ML VIAL IV PRN (15:18)
[2020-02-14] MEDS ORDERED: HYDRALAZINE HCL 20 MG/ML VIAL IV PRN (15:18)
[2020-02-14] MEDS ORDERED: MELATONIN 5 MG TABLET PO PRN (15:18)
[2020-02-14] MEDS: METOPROLOL XL 100 MG TAB PO SCH ×2 (15:19→18:00)
[2020-02-14] MEDS ORDERED: MORPHINE 2 MG/ML SYR IV PRN (15:21)
[2020-02-14] MEDS ORDERED: ALBUTEROL 2.5 MG/3 ML NEB SOL NEB PRN (15:21)
--- NOTE | 2020-02-14 15:40 | P.HP ---
Certification for Inpatient Patient admitted to: Observation With expected LOS: <2 Midnights Patient will require the following post-hospital care: None Practitioner: I am a practitioner with admitting privileges, knowledge of patient current condition, hospital course, and medical plan of care. Services: Services provided to patient in accordance with Admission requirements found in Title 42 Section 412.3 of the Code of Federal Regulations Patient History Date of Service: 02/14/20 Reason for admission: EARL, hand numbness History of Present Illness: 44 year old male with HTN, HLD, CAD s/p PCI -1 year ago in setting of intermittent palpitations,shortness of breath at rest since last month , not related to activity, presented for persistent hand numbness worse since today . He admit to missing doses of his Metoprolol since last 2 days but states his blood pressure has been persistent elevated in the 170s since last 2 months . No regular follow up with PCP due to lack of insurance . He denies any recent travel or leg pain. His chest pain is more of palpitations in the ER , His EKG was normal , but noted elevated BP in the 170s systolic Allergies No Known Drug Allergies Allergy (Verified 07/24/18 07:20) Unknown Home Medications: Atorvastatin Calcium [Lipitor] 80 mg PO BEDTIME 08/07/18 Clopidogrel Bisulfate [Plavix*] 75 mg PO DAILY 08/07/18 Metoprolol Tartrate 50 mg PO BID 08/07/18 Nitroglycerin 0.3 mg SL SEECOM #10 tab.subl 08/09/18 - Past Medical/Surgical History Diabetic: No -: hypertension -: hypercholesterolemia -: Tobacco Dependence -: left shoulder surgery - Social History Smoking Status: Current every day smoker Counseled patient to stop smoking for: less than 10 minutes Smoking therapy provided: Yes Patient receptive to therapy: Yes Alcohol use: Yes CD- Drugs: No Caffeine use: Yes Review of Systems Cardiovascular: Light Headedness Neurological: Numbness Physical Examination - Physical Exam General: Alert, In no apparent distress, Oriented x3 HEENT: Atraumatic, Normocephalic, PERRLA Neck: Supple, 2+ carotid pulse no bruit, JVD not distended Respiratory: Clear to auscultation bilaterally, Normal air movement Cardiovascular: No edema, Normal pulses, Regular rate/rhythm, Normal S1 S2 Gastrointestinal: Normal bowel sounds, Soft and benign, Non-distended, No tenderness Integumentary: No rashes, No breakdown Neurological: Normal speech, Normal strength at 5/5 x4 extr - Studies Laboratory Data (last 24 hrs) 02/14/20 13:35: PT 12.0, INR 1.02 02/14/20 13:35: WBC 9.8, Hgb 17.0, Hct 49.7 H, Plt Count 237 02/14/20 13:35: Sodium 142, Potassium 3.7, BUN 8, Creatinine 0.89, Glucose 119 H, Magnesium 2.3, Total Bilirubin 0.3, AST 20, ALT 53, Alkaline Phosphatase 90 Imagings Data: CXR -clear EKG - sinus tachycardia with rate of 101, no ST or Q wave changes Assessment and Plan - Problems (Diagnosis) (1) Hypertensive urgency Current Visit: Yes Status: Acute (2) Hyperlipidemia Current Visit: No Status: Acute (3) NSTEMI (non-ST elevated myocardial infarction) Onset Date: 07/24/18 Current Visit: No Status: Acute (4) Tobacco abuse Onset Date: 07/24/18 Current Visit: No Status: Acute - Advance Directives Does patient have a Living Will: No Does patient have a Durable POA for Healthcare: No Physician Review: Patient Assessed, Agree with Above Assessment and Plan Physician Review Additional Text: # Hypertensive Urgency - may be cause of patient sympotms - restart Tooprol -increase dose to 100 mg bid - add Norvasc - obtain head CT to r/o aneurysm sinced intermittent headaches -IV hydralazine prn # Intermittent palpitations and dyeonea on exertion - low probability for acute coronary syndrome -since history of CAD and PCI and mild nonadherence with Plavix we obtained serial set of cardiac enzyme -will place in telemetry -will obtain cardiology consult. -start aspirin in addition to Plavix daily -repeat EKG in a.m. # chronic tobacco use-smoking cessation advice, will place nicotine patch # Disposition-will place in observation, possible discharge home in a.m. - Time Spent Managing Pts Care (In Minutes): 60
--- NOTE | 2020-02-14 16:49 | RAD REPORT ---
EXAM DESCRIPTION: CT - Ct Stroke Brain Wo Cont - 02/14/2020 4:11 pm CLINICAL HISTORY: hand numbness Headache, drowsiness COMPARISON: No comparisons TECHNIQUE: All CT scans are performed using dose optimization technique as appropriate and may inclu de automated exposure control or mA/KV adjustment according to patient size. FINDINGS: No intracranial hemorrhage, hydrocephalus or extra-axial fluid collection.No areas of brai n edema or evidence of midline shift. 25 mm mucous retention cyst or polyp is seen in the left maxillary. The paranasal sinuses and mastoid s are otherwise clear. The calvarium is intact. IMPRESSION: No acute intracranial abnormality.
[2020-02-14 17:36] VITALS: BMI 33.7
[2020-02-14] MEDS: AMLODIPINE 5 MG TAB PO SCH (18:08)
[2020-02-14] MEDS: NICOTINE 21 MG/PAT TD SCH (20:37)
[2020-02-14] MEDS ORDERED: ATORVASTATIN 20 MG TAB PO SCH (21:00)
[2020-02-14] MEDS ORDERED: ATORVASTATIN 80 MG TAB PO SCH (21:00)
[2020-02-15] MEDS: METOPROLOL XL 100 MG TAB PO SCH (05:06)
[2020-02-15 06:06] LABS: Absolute Lymphocytes (CBC) 2.4 K/uL (0.7-4.9); Basophils % 0.8 % (0-1.3); Hematocrit 47.8 % (39.6-49.0); Lymphocytes % 24.8 % (15.3-44.8); MPV 8.2 fL (7.6-11.3); RBC Red Blood Cell Count 4.93 M/uL (4.33-5.43)
[2020-02-15 06:20] LABS: ALT/SGPT 45 U/L (12-78); AST/SGOT 18 U/L (15-37); Albumin 3.4 g/dL (3.4-5.0); Alkaline Phosphatase 85 U/L (45-117); BUN Blood Urea Nitrogen 9 mg/dL (7-18); Bicarbonate 28 mmol/L (21-32); Bilirubin Total 0.7 mg/dL (0.2-1.0); Glucose Level 93 mg/dL (74-106); Potassium 4.1 mmol/L (3.5-5.1); Protein, Total 7.1 g/dL (6.4-8.2); Sodium Level 139 mmol/L (136-145)
--- NOTE | 2020-02-15 06:54 | EKG ---
Test Date: 2020-02-14 Test Time: 13:12:14 Agricultural Science Professor: LELO MEASUREMENT RESULTS: Intervals: Rate: 101 MD: 132 QRSD: 86 QT: 352 QTc: 456 [place]: P: 57 MD: 132 QRS: 41 T: 55 INTERPRETIVE STATEMENTS: Sinus tachycardia Otherwise normal ECG Compared to ECG 08/09/2018 02:50:19 Sinus bradycardia no longer present Myocardial infarct finding no longer present Electronically Signed On 02-15-20 06:53:09 CDT by Devonte Mcallister
[2020-02-15 08:07] VITALS: BP 156/93; TEMP 96.9
[2020-02-15] MEDS: NICOTINE 21 MG/PAT TD SCH (08:45)
[2020-02-15] MEDS: AMLODIPINE 5 MG TAB PO SCH (08:46)
--- NOTE | 2020-02-15 08:50 | P.DS ---
Admission Date: 02/14/20 Discharge Date: 02/15/20 Disposition: ROUTINE DISCHARGE Discharge Condition: GOOD Reason for Admission: EARL, hand numbness - Problems (1) Hypertensive urgency Current Visit: Yes Status: Acute (2) Hyperlipidemia Current Visit: No Status: Acute (3) NSTEMI (non-ST elevated myocardial infarction) Onset Date: 07/24/18 Current Visit: No Status: Acute (4) Tobacco abuse Onset Date: 07/24/18 Current Visit: No Status: Acute Brief History of Present Illness: 44 year old male with HTN, HLD, CAD s/p PCI -1 year ago in setting of intermittent palpitations,shortness of breath at rest since last month , not related to activity, presented for persistent hand numbness worse since today . He admit to missing doses of his Metoprolol since last 2 days but states his blood pressure has been persistent elevated in the 170s since last 2 months . No regular follow up with PCP due to lack of insurance . He denies any recent travel or leg pain. His chest pain is more of palpitations in the ER , His EKG was normal , but noted elevated BP in the 170s systolic Hospital Course: Patient was admitted for presumed hypertensive urgency with neuro symptoms. His blood pressure medication was adjusted, counseling on medication adherence was discussed. Head CT was negative for any acute infarct. EKG was unremarkable. He was evaluated by Cardiology for history of intermittent dyspnea on exertion. History of recent cardiac catheterization 1 year ago with diffuse RCA disease but patent in stent LCx obtain by Cardiology. Medical management advice. Patient was restarted on Toprol with increased dose to 100 b.i.d. and restarted on statin. He will continue on her aspirin and Plavix in addition with new amlodipine which was used to control his blood pressure. Patient's cardiac enzymes were negative. Patient will be discharged home and advised to follow up with PCP regularly Vital Signs/Physical Exam: Temp Pulse Resp BP Pulse Ox 96.9 F 58 18 156/93 H 98 02/15/20 08:00 02/15/20 08:46 02/15/20 08:00 02/15/20 08:46 02/15/20 08:00 General: Alert, In no apparent distress, Oriented x3 HEENT: Atraumatic, Normocephalic, PERRLA Neck: Supple, 2+ carotid pulse no bruit, JVD not distended Respiratory: Clear to auscultation bilaterally, Normal air movement Cardiovascular: Normal pulses, Regular rate/rhythm, Normal S1 S2 Gastrointestinal: Normal bowel sounds, Soft and benign, Non-distended Musculoskeletal: No clubbing, No swelling Integumentary: No rashes, No breakdown Neurological: Normal gait, Normal speech, Normal strength at 5/5 x4 extr, Normal tone Laboratory Data at Discharge: WBC 9.5 K/uL (4.3-10.9) 02/15/20 05:48 Hgb 16.3 g/dL (13.6-17.9) 02/15/20 05:48 Hct 47.8 % (39.6-49.0) 02/15/20 05:48 Plt Count 221 K/uL (152-406) 02/15/20 05:48 PT 12.0 SECONDS (9.5-12.5) 02/14/20 13:35 INR 1.02 02/14/20 13:35 Sodium 139 mmol/L (136-145) 02/15/20 05:40 Potassium 4.1 mmol/L (3.5-5.1) 02/15/20 05:40 BUN 9 mg/dL (7-18) 02/15/20 05:40 Creatinine 0.83 mg/dL (0.55-1.3) 02/15/20 05:40 Glucose 93 mg/dL (74-106) 02/15/20 05:40 Magnesium 2.3 mg/dL (1.8-2.4) 02/14/20 13:35 Total Bilirubin 0.7 mg/dL (0.2-1.0) 02/15/20 05:40 AST 18 U/L (15-37) 02/15/20 05:40 ALT 45 U/L (12-78) 02/15/20 05:40 Alkaline Phosphatase 85 U/L (45-117) 02/15/20 05:40 Troponin I < 0.02 ng/mL (0.0-0.045) 02/14/20 21:36 Home Medications: Clopidogrel Bisulfate [Plavix*] 75 mg PO DAILY 08/07/18 Aspirin [Aspirin EC 325 MG] 1 tab PO DAILY 02/14/20 Amlodipine [Norvasc*] 5 mg PO DAILY #30 tab 02/15/20 Atorvastatin Calcium [Lipitor*] 80 mg PO BEDTIME #30 tab 02/15/20 Metoprolol Succinate [Toprol Xl*] 100 mg PO BID 6AM 6PM #60 tab 02/15/20 New Medications: Atorvastatin Calcium [Lipitor*] 80 mg PO BEDTIME #30 tab Amlodipine [Norvasc*] 5 mg PO DAILY #30 tab Metoprolol Succinate [Toprol Xl*] 100 mg PO BID 6AM 6PM #60 tab Patient Discharge Instructions: - Take medications properly Diet: Low sodium Activity: Ad tierney Time spent managing pt's care (in minutes): 35
[2020-02-15] MEDS ORDERED: ASPIRIN EC 81 MG TAB PO SCH (09:00)
[2020-02-15] MEDS ORDERED: CLOPIDOGREL 75 MG TABLET PO SCH (09:00)
[2020-02-15] MEDS ORDERED: HOME MED 1 EA UNK (Aspirin [Aspirin Ec 325 Mg] 1 TAB) PO SCH (09:00)
[2020-02-15] MEDS ORDERED: ENOXAPARIN 40 MG/0.4 ML SQ SCH (09:00)
[2020-02-15 10:17] VITALS: O2SAT 98
--- NOTE | 2020-02-15 12:06 | CON ---
Date of Consultation: 02/15/2020 Reason For Consultation: Hypertensive crisis and chest pain. History Of Present Illness: Mr. Richardson is a 44-year-old white male. He is a patient that we know well. In July of 2018, he underwent an RCA stent by Dr. Guerra. 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 His LAD was normal. He had a 50% to 60% small obtuse marginal in the circumflex territory that was treated medically. He comes back with severe hypertension, uncontrolled. It is not certain whether he has b een taking his medication. He lost his job, lost his insurance, and has not followed up with us or w ith the primary care. He had mostly shortness of breath, tightness, atypical chest pain. His blood pressure was 174/96. It is 138/68 right now. He had received Norvasc, metoprolol, hydralazine, and Lovenox. He is asymptomatic and wants to go home. He did have a normal chest x-ray, normal EKG, and normal troponin. Past Medical History: Negative otherwise. Allergies: NONE. Review of Systems: Negative. Social History: Negative. Family History: Noncontributory. Physical Examination: Vital Signs: Blood pressure is 138/68. He is in a sinus rhythm. HEENT: Negative. Neck: Supple without any bruit, lymphadenopathy, JVD, or thyromegaly. CHEST: Clear to auscultation and percussion. Cardiac: Revealed a regular rhythm and rate. No murmurs, gallops, or rubs. Abdomen: Benign. Extremities: Revealed no clubbing, cyanosis, or edema. Diagnostic Data: All normal. Impression And Plan: 1.Coronary artery disease, stable. 2.Hypertension, probably causes tightness and shortness of breath. 3.Dyslipidemia. 4.Probable noncompliance. I think patient should go home on metoprolol, Norvasc, aspirin, Plavix, and statin. Consider adding hydralazine. He was instructed on medical compliance and follow up with us in the near future. No n eed for further cardiac intervention or workup at this point. NB/MODL Voice ID: [id number] Report ID: [id number]
== END 2020-02-15 10:21 | disposition home or self-care (01) ==
LOC: ER 12:40 → ERHOLD 15:31 → 2ND 16:44
PROVIDERS: ADMIT Internal Medicine; ATTEND Internal Medicine
DX: I16.0 Hypertensive urgency (principal); I25.10 Atherosclerotic heart disease of native coronary artery without angina pectoris; E78.5 Hyperlipidemia, unspecified; I25.2 Old myocardial infarction; R00.0 Tachycardia, unspecified; Z20.828 Contact with and (suspected) exposure to other viral communicable diseases; F17.210 Nicotine dependence, cigarettes, uncomplicated; Z79.02 Long term (current) use of antithrombotics/antiplatelets; Z79.899 Other long term (current) drug therapy; Z95.5 Presence of coronary angioplasty implant and graft
CPT/HCPCS: 36415; 70450; 71045; 80048; 80053; 80076; 83735; 83880; 84484; 85025; 85610; 93005; 96374; 99285; G0378; J1650; U0002

== ENCOUNTER 2021-03-07 23:57 | Emergency (ER) | payer OTHER, SELFPAY ==
[2021-03-08] MEDS ORDERED: TETRACAINE HCL 0.5% 4ML OPTH ONE (00:40)
[2021-03-08] MEDS ORDERED: FLUORESCEIN SODIUM 1 MG/WRAP ONE (00:42)
--- NOTE | 2021-03-08 00:44 | ER ---
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 No physical particles to the eye, just the burning sensation in his eyes from the arc. Pt states it woke him up from sleep one hour ago. Pt denies any other complaints. Coronavirus screen: Vaccine status: Patient reports being unvaccinated. Ebola Screen: Patient negative for fever greater than or equal to 101.5 degrees Fahrenheit, and additional compatible Ebola Virus Disease symptoms Patient denies exposure to infectious person. Patient denies travel to an Ebola-affected area in the 21 days before illness onset. No symptoms or risks identified at this time. Mechanism of Injury: No Mechanism of Injury. The patient denies any loss of vision. Initial Sepsis Screen: Does the patient meet any 2 criteria? No. Patient's initial sepsis screen is negative. Does the patient have a suspected source of infection? No. Patient's initial sepsis screen is negative. Risk Assessment: Do you want to hurt yourself or someone else? Patient reports no desire to harm self or others. Onset of symptoms was March 07, 2021 at 23:00. 00:06 Method Of Arrival: Ambulatory 00:06 Acuity: RHIANNON 4 wg Triage Assessment: 00:09 General: Appears distressed, uncomfortable, obese, well groomed, Behavior is wg cooperative, appropriate for age, restless. Pain: Complains of pain in Both eyes Pain currently is 9 out of 10 on a pain scale. EENT: Reports pain in right eye and left eye. Historical: - Allergies: 00:09 No Known Allergies; wg - Immunization history:: Adult Immunizations up to date. - Social history:: Smoking status: unknown. Screenin:00 Abuse screen: Denies threats or abuse. Denies injuries from another. Nutritional sj1 screening: No deficits noted. Tuberculosis screening: No symptoms or risk factors identified. Fall Risk None identified. Assessment: 01:00 EENT: Eyes Sclera/Cornea see provider note. sj1 Vital Signs: 00:06 BP 134 / 78; Pulse 86; Resp 18; Temp 98.7; Pulse Ox 100% on R/A; Weight 102.06 kg; wg Height 5 ft. 10 in. (177.80 cm); Pain 9/10; 00:06 Body Mass Index 32.28 (102.06 kg, 177.80 cm) ED Course: 00:00 Patient arrived in ED. bp1 00:09 Triage completed. wg 00:10 Arm band placed on right wrist. wg 00:13 Wallace Jimenez PA is PHCP. jm 00:13 Sonal Snider MD is Attending Physician. jm 00:43 Louis Workman MD is Referral Physician. [facility] 01:00 Patient has correct armband on for positive identification. sj1 01:00 No provider procedures requiring assistance completed. Patient did not have IV access sj1 during this emergency room visit. Administered Medications: 00:18 Drug: Tetracaine Drops 0.5 % 1 drops {Note: administered by provider.} Route: sj1 Ophthalmic; Site: left eye; 00:53 Follow up: Response: No adverse reaction; Pain is decreased sj1 00:33 Not Given (not availablee): ERYTHromycin Ointment 1 application Ophthalmic once sj1 00:35 Drug: Tobramycin Ointment (0.3 %) 1 application Route: Ophthalmic; Site: both eyes; sj1 00:53 Follow up: Response: No adverse reaction sj1 Outcome: 00:43 Discharge ordered by MD. [facility] 01:00 Discharged to home ambulatory. sj1 01:00 Condition: stable 01:00 Discharge instructions given to patient, Instructed on discharge instructions, follow up and referral plans. medication usage, Demonstrated understanding of instructions, follow-up care, medications. 01:02 Patient left the ED. 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 No physical particles to the eye, just the burning sensation from the arc. Pt states it woke him up from sleep one hour ago. Pt denies any other complaints. wg
--- NOTE | 2021-03-08 00:44 | EDPHYS ---
Physician Documentation [facility] Name: Gregory Richardson Jr Age: 45 yrs Sex: Male : 1975 Arrival Date: 03/08/2021 Time: 00:00 Bed Treatment Private MD: ED Physician Sonal Snider HPI: 03/08 00:38 This 45 yrs old Male presents to ER via Ambulatory with complaints of Eye jmm Injury. 00:38 Onset: The symptoms/episode began/occurred today. Duration: the symptoms are jmm continuous. Aggravated by light, Alleviated by nothing. Associated signs and symptoms: Pertinent positives: runny nose. This is a 45-year-old male that complains of bilateral eye pain and irritation which worsened this evening when attempting to go to sleep. 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 This has happened to him in the past. Patient states he applied an ointment that they normally give for similar injuries. Patient states he is up-to-date on his tetanus immunization. Historical: - Allergies: 00:09 No Known Allergies; wg - Immunization history:: Adult Immunizations up to date. - Social history:: Smoking status: unknown. ROS: 00:38 Constitutional: Negative for fever, chills, and weight loss. jmm 00:38 Eyes: Positive for pain. 00:38 All other systems are negative. Exam: 00:38 Constitutional: This is a well developed, well nourished patient who is awake, alert, jmm and in no acute distress. Head/Face: atraumatic. 00:38 Neck: Trachea midline, Supple Chest/axilla: Normal chest wall appearance and motion. Cardiovascular: Regular rate and rhythm. No edema appreciated Respiratory: Normal respirations, no respiratory distress appreciated Abdomen/GI: Non distended, soft Back: Normal ROM Skin: General appearance color normal MS/ Extremity: Moves all extremities, no obvious deformities appreciated, no edema noted to the lower extremities Neuro: Awake and alert, normal gait Psych: Behavior is normal, Mood is normal, Patient is cooperative and pleasant 00:38 Eyes: Extraocular movements: intact throughout, Conjunctiva: injected, bilaterally, Corneas: abrasion, that is small, on the left, foreign body, is not appreciated, a fluorescein strip employed to appreciate the findings, Sclera: abrasion, of the medial aspect of conjunctiva of right eye of the lateral aspect of conjunctiva of left eye. Vital Signs: 00:06 BP 134 / 78; Pulse 86; Resp 18; Temp 98.7; Pulse Ox 100% on R/A; Weight 102.06 kg; wg Height 5 ft. 10 in. (177.80 cm); Pain 9/10; 00:06 Body Mass Index 32.28 (102.06 kg, 177.80 cm) wg MDM: 00:15 Patient medically screened. [facility] 00:42 Data reviewed: vital signs, nurses notes. Counseling: I had a detailed discussion with [facility] the patient and/or guardian regarding: the historical points, exam findings, and any diagnostic results supporting the discharge/admit diagnosis, the need for outpatient follow up, to return to the emergency department if symptoms worsen or persist or if there are any questions or concerns that arise at home. ED course: Pain relieved in the ED. Patient most likely experiencing keratitis from high light exposure. There are some signs of abrasion to the sclera of the right and left eye. I do not suspect any foreign body. Patient advised to follow-up with the ophthalmology and otherwise given strict return precautions. Patient understood and agrees plan of care. 03/08 00:13 Order name: Eye Tray; Complete Time: 00:18 [facility] 03/08 00:13 Order name: Fluoresene Opth strip; Complete Time: 00:18 [facility] Administered Medications: 00:18 Drug: Tetracaine Drops 0.5 % 1 drops {Note: administered by provider.} Route: sj1 Ophthalmic; Site: left eye; 00:53 Follow up: Response: No adverse reaction; Pain is decreased sj1 00:33 Not Given (not availablee): ERYTHromycin Ointment 1 application Ophthalmic once sj1 00:35 Drug: Tobramycin Ointment (0.3 %) 1 application Route: Ophthalmic; Site: both eyes; sj1 00:53 Follow up: Response: No adverse reaction sj1 Disposition Summary: 03/08/21 00:43 Discharge Ordered Location: Home [facility] Condition: Stable [facility] Diagnosis - Photokeratitis, bilateral [facility] Followup: [facility] - With: Louis Workman MD - When: 2 - 3 days - Reason: Recheck today's complaints, Continuance of care, Re-evaluation by your physician Discharge Instructions: - Discharge Summary Sheet jmm - Ultraviolet Keratitis jm - How to Use Eye Drops and Eye Ointments [facility] Forms: - Medication Reconciliation Form [facility] - Thank You Letter [facility] - Antibiotic Education [facility] - Prescription Opioid Use [facility] Prescriptions: - Erythromycin 5 mg/gram (0.5 %) Ophthalmic Ointment - apply 1 centimeter by OPHTHALMIC route 2-3 times daily for 7 days; 1 tube; [facility] Refills: 0, Product Selection Permitted Addendum: 03/11/2021 04:34 Co-signature as Attending Physician, Sonal Snider MD PA/REFINERY PIPELINE OPERATOR's history reviewed, m a2 patient interviewed, and examined. I agree with assessment and care plan and confirm the diagnosis (es) above. Signatures: Wallace Jimenez PA PA jmm Alzahri, Mohammad, MD MD ma2 Saulo Jaquez RN Lea Jackson RN RN sj1
[2021-03-08] MEDS ORDERED: TOBRAMYCIN SULF 0.3% OPTH OINT ONE (00:56)
[2021-03-08 10:39] VITALS: BP 134/78; TEMP 98.7; O2SAT 100
== END 2021-03-08 01:02 | disposition home or self-care (01) ==
LOC: ER 23:57
DX: H16.133 Photokeratitis, bilateral (principal)
CPT/HCPCS: 99283

== ENCOUNTER 2021-04-03 12:04 | Emergency (ER) | payer SELFPAY ==
--- NOTE | 2021-04-03 13:12 | RAD REPORT ---
EXAM DESCRIPTION: RAD - Chest Single View - 04/03/2021 1:00 pm CLINICAL HISTORY: COUGH Chest pain. COMPARISON: Chest Single View dated 02/14/2020; Chest Single View dated 08/07/2018; Chest Single View d ated 07/23/2018; CHEST SINGLE VIEW dated 02/01/2011 FINDINGS: Portable technique limits examination quality. The lungs are grossly clear. The heart is normal in size. No displaced fractures. IMPRESSION: No acute intrathoracic process suspected.
[2021-04-03] MEDS ORDERED: NA CHLORIDE 0.9% 1,000 ML ONE (13:35)
[2021-04-03] MEDS ORDERED: FAMOTIDINE 20 MG/2 ML VIAL IV ONE (13:35)
[2021-04-03] MEDS ORDERED: NA CHLORIDE 0.9% 500 ML ONE (13:35)
[2021-04-03 14:11] LABS: Absolute Lymphocytes (CBC) 1.6 K/uL (0.7-4.9); Basophils % 0.5 % (0-1.3); Hematocrit 50.1 % (39.6-49.0); Lymphocytes % 23.5 % (15.3-44.8); MPV 8.1 fL (7.6-11.3); RBC Red Blood Cell Count 5.27 M/uL (4.33-5.43)
[2021-04-03 14:40] LABS: Protime INR 1.09
[2021-04-03 15:10] LABS: ALT/SGPT 83 U/L (12-78); Alkaline Phosphatase 106 U/L (45-117); BUN Blood Urea Nitrogen 10 mg/dL (7-18); Bicarbonate 28 mmol/L (21-32); Bilirubin Direct < 0.1 mg/dL (0-0.2); Bilirubin Total 0.5 mg/dL (0.2-1.0); C-Reactive Protein 2.99 mg/L (<3.00); Glucose Level 93 mg/dL (74-106); NT PRO-BNP 7 pg/mL (<125); Protein, Total 8.2 g/dL (6.4-8.2); Sodium Level 140 mmol/L (136-145); Troponin (Emerg Dept Use Only) < 0.02 ng/mL (0.0-0.045)
[2021-04-03 15:11] LABS: AST/SGOT 53 U/L (15-37); Magnesium 2.5 mg/dL (1.8-2.4); Potassium 4.9 mmol/L (3.5-5.1)
--- NOTE | 2021-04-03 15:22 | EDPHYS ---
Physician Documentation [facility] Name: Gregory Richardson Jr Age: 46 yrs Sex: Male : 1975 Arrival Date: 04/03/2021 Time: 12:06 Bed 5 Private MD: ED Physician Rahul Marr HPI: 04/03 14:50 This 46 yrs old Male presents to ER via Ambulatory with complaints of irena Dizziness, Numbness, covid+. 14:50 The patient presents with dizziness, generalized weakness, lightheadedness. Onset: The irena symptoms/episode began/occurred 2 day(s) ago. Context: occurred at home. Modifying factors: The symptoms are alleviated by nothing, the symptoms are aggravated by nothing. Associated signs and symptoms: Pertinent positives: nausea. Severity of symptoms: At their worst the symptoms were mild moderate in the emergency department the symptoms have improved mildly. Patient's baseline: Neuro: alert and fully oriented, Motor: no deficits. The patient has experienced similar episodes in the past, a few times. Historical: - Allergies: 12:20 No Known Drug Allergies; ll1 - PMHx: 12:20 Hyperlipidemia; Hypertension; Myocardial infarction; ll1 - PSHx: 12:20 None; ll1 - Immunization history:: Client reports having NOT received the Covid vaccine. - Social history:: Smoking status: Patient reports the use of cigarette tobacco products, smokes one-half pack cigarettes per day. - Family history:: not pertinent. ROS: 14:50 Constitutional: Negative for fever, chills, and weight loss, Eyes: Negative for injury, irena pain, redness, and discharge, ENT: Negative for injury, pain, and discharge, Neck: Negative for injury, pain, and swelling, Cardiovascular: Negative for chest pain, palpitations, and edema, Abdomen/GI: Negative for abdominal pain, nausea, vomiting, diarrhea, and constipation, Back: Negative for injury and pain, : Negative for injury, bleeding, discharge, and swelling, MS/Extremity: Negative for injury and deformity, Skin: Negative for injury, rash, and discoloration, Psych: Negative for depression, anxiety, suicide ideation, homicidal ideation, and hallucinations, Allergy/Immunology: Negative for hives, rash, and allergies, Endocrine: Negative for neck swelling, polydipsia, polyuria, polyphagia, and marked weight changes, Hematologic/Lymphatic: Negative for swollen nodes, abnormal bleeding, and unusual bruising. 14:50 Respiratory: Positive for cough, shortness of breath, at rest. 14:50 Neuro: Positive for dizziness, weakness. Exam: 14:50 Constitutional: This is a well developed, well nourished patient who is awake, alert, irena and in no acute distress. Head/Face: Normocephalic, atraumatic. Eyes: Pupils equal round and reactive to light, extra-ocular motions intact. Lids and lashes normal. Conjunctiva and sclera are non-icteric and not injected. Cornea within normal limits. Periorbital areas with no swelling, redness, or edema. ENT: Nares patent. No nasal discharge, no septal abnormalities noted. Tympanic membranes are normal and external auditory canals are clear. Oropharynx with no redness, swelling, or masses, exudates, or evidence of obstruction, uvula midline. Mucous membranes moist. Neck: Trachea midline, no thyromegaly or masses palpated, and no cervical lymphadenopathy. Supple, full range of motion without nuchal rigidity, or vertebral point tenderness. No Meningismus. Chest/axilla: Normal chest wall appearance and motion. Nontender with no deformity. No lesions are appreciated. Cardiovascular: Regular rate and rhythm with a normal S1 and S2. No gallops, murmurs, or rubs. Normal PMI, no JVD. No pulse deficits. Abdomen/GI: Soft, non-tender, with normal bowel sounds. No distension or tympany. No guarding or rebound. No evidence of tenderness throughout. Back: No spinal tenderness. No costovertebral tenderness. Full range of motion. Male : Normal genitalia with no discharge or lesions. Skin: Warm, dry with normal turgor. Normal color with no rashes, no lesions, and no evidence of cellulitis. 14:50 Respiratory: the patient does not display signs of respiratory distress, Respirations: labored breathing, is not present, Breath sounds: bronchial sounds, that are mild, rhonchi, are not appreciated, stridor, is not appreciated, wheezing: expiratory is scattered, is heard in the right posterior upper lobe and right posterior middle lobe. 15:00 ECG was reviewed by the Attending Physician. [facility] Vital Signs: 12:18 BP 154 / 98; Pulse 113; Resp 20; Temp 98.2; Pulse Ox 96% on R/A; Weight 99.79 kg; ll1 Height 5 ft. 10 in. (177.80 cm); Pain 4/10; 13:27 BP 142 / 91; Pulse 91; Resp 18; Pulse Ox 96% on R/A; tw5 15:46 BP 147 / 97; Pulse 78; Resp 18; Pulse Ox 99% on R/A; Pain 0/10; tw5 17:20 BP 147 / 85; Pulse 83; Resp 16; Temp 98.4; Pulse Ox 96% on R/A; Pain 0/10; tw5 12:18 Body Mass Index 31.57 (99.79 kg, 177.80 cm) ll1 MDM: 12:23 Patient medically screened. irena 14:54 Differential diagnosis: generalized weakness, hyperventilation, hypovolemia, idiopathic irena dizziness, near-syncope. Data reviewed: vital signs, nurses notes, lab test result(s), EKG, radiologic studies, plain films. Data interpreted: ekg monitor: rate is 91 beats/min, rhythm is regular, Pulse oximetry: on room air is 96 %. Test interpretation: by ED physician or midlevel provider: ECG, plain radiologic studies. Counseling: I had a detailed discussion with the patient and/or guardian regarding: the historical points, exam findings, and any diagnostic results supporting the discharge/admit diagnosis, the presence of at least one elevated blood pressure reading (>120/80) during this emergency department visit, lab results, radiology results, the need for outpatient follow up, for definitive care, a family practitioner, a vice president of engineering. 04/03 12:25 Order name: Basic Metabolic Panel [facility] 04/03 12:25 Order name: CBC with Diff [facility] 04/03 12:25 Order name: LFT's; Complete Time: 16:29 [facility] 04/03 12:25 Order name: Magnesium; Complete Time: 16:29 [facility] 04/03 12:25 Order name: NT PRO-BNP; Complete Time: 16:29 [facility] 04/03 12:25 Order name: PT-INR; Complete Time: 14:46 [facility] 04/03 12:25 Order name: Troponin (emerg Dept Use Only); Complete Time: 16:29 [facility] 04/03 12:25 Order name: Blood Culture Adult (2) [facility] 04/03 12:25 Order name: Lactate; Complete Time: 14:46 [facility] 04/03 12:25 Order name: D-Dimer; Complete Time: 14:46 [facility] 04/03 12:25 Order name: Ferritin; Complete Time: 16:29 [facility] 04/03 12:25 Order name: CRP; Complete Time: 16:29 [facility] 04/03 12:25 Order name: Basic Metabolic Panel; Complete Time: 16:29 [facility] 04/03 12:25 Order name: CBC with Automated Diff; Complete Time: 14:46 [facility] 04/03 12:25 Order name: XRAY Chest (1 view); Complete Time: 14:00 [facility] 04/03 12:25 Order name: EKG; Complete Time: 12:26 [facility] 04/03 12:25 Order name: Cardiac monitoring; Complete Time: 13:19 [facility] 04/03 12:25 Order name: EKG - Nurse/Tech; Complete Time: 12:56 [facility] 04/03 12:25 Order name: IV Saline Lock; Complete Time: 13:39 [facility] 04/03 12:25 Order name: Labs collected and sent; Complete Time: 13:39 [facility] 04/03 12:25 Order name: O2 Per Protocol; Complete Time: 13:19 [facility] 04/03 12:25 Order name: O2 Sat Monitoring; Complete Time: 13:19 [facility] EC:00 Rate is 93 beats/min. Rhythm is regular. QRS [place] is Normal. OR interval is normal. QRS irena interval is normal. QT interval is normal. No Q waves. T waves are Normal. No ST changes noted. Clinical impression: Normal ECG and No evidence of ischemia. Interpreted by me. Reviewed by me. Administered Medications: 13:46 Drug: Pepcid (famotidine) 20 mg Route: IVP; Site: right antecubital; tw5 15:56 Follow up: Response: No adverse reaction tw5 13:47 Drug: NS 0.9% 500 ml Route: IV; Rate: bolus; Site: right antecubital; tw5 15:56 Follow up: Response: No adverse reaction; IV Status: Completed infusion tw5 13:47 Drug: NS 0.9% 1000 ml Route: IV; Rate: 125 ml/hr; Site: left antecubital; tw5 17:16 Follow up: Response: No adverse reaction; IV Status: Completed infusion tw5 15:49 Drug: Albuterol HFA Inhaler 4 puffs Route: Inhalation; tw 15:55 Drug: Zithromax (azithromycin) 500 mg Route: PO; tw 17:16 Follow up: Response: No adverse reaction 15:55 Drug: Aspirin 162 mg Route: PO; tw 17:16 Follow up: Response: No adverse reaction tw 15:55 Drug: Pepcid (famotidine) 20 mg Route: PO; tw5 17:16 Follow up: Response: No adverse reaction tw 16:15 Drug: Casirivimab-Imdevimab Dose Pack 120 mg/mL-120 mg/mL (EUA) 1 vials {Note: verified tw with Dr. Marr that a single vial only contains 600/600 mg pr 10 ml. SEE New written order in charge for correct medication order. Only 1 vial to be administered. .} Route: IV; Rate: per protocol; Site: left antecubital; 17:16 Follow up: Response: No adverse reaction; IV Status: Completed infusion 16:16 Drug: Singulair 10 mg Route: PO; 17:16 Follow up: Response: No adverse reaction Disposition Summary: 04/03/21 17:10 Discharge Ordered Location: Home(04/03/21 17:10) irena Problem: new(04/03/21 17:10) irena Symptoms: have improved(04/03/21 17:10) irena Condition: Stable(04/03/21 17:10) irena Diagnosis - Coronavirus infection, unspecified(04/03/21 17:10) irena - Pneumonia due to SARS-associated coronavirus(04/03/21 17:10) irena - Weakness(04/03/21 17:10) irena - Cough irena Followup: irena - With: Private Physician - When: 2 - 3 days - Reason: Recheck today's complaints, Continuance of care, Re-evaluation by your physician Followup: irena - With: - When: 2 - 3 days - Reason: Recheck today's complaints, Re-evaluation by your physician Discharge Instructions: - Discharge Summary Sheet irena - Weakness irena - Weakness, [id number] irena - COVID-19 irena - COVID-19 Frequently Asked Questions irena - 10 Things You Can Do to Manage Your COVID-19 Symptoms at Home - [facility] irena - Viral Illness, Adult irena Forms: - Medication Reconciliation Form irena - Thank You Letter irena - Antibiotic Education [facility] - Prescription Opioid Use [facility] Prescriptions: - Singulair 10 mg Oral tablet - take 1 tablet by ORAL route once daily; 30 tablet; Refills: 0, Product [facility] Selection Permitted - albuterol sulfate 90 mcg/actuation Inhalation HFA aerosol inhaler - inhale 2 puff by INHALATION route every 4-6 hours; 1 vial; Refills: 0, Product [facility] Selection Permitted - ivermectin 3 mg Oral tablet - take 5 tablet by ORAL route once daily; 15 tablet; Refills: 0, Product [facility] Selection Permitted - Pepcid 20 mg Oral Tablet - take 1 tablet by ORAL route every 12 hours for 30 days; 60 tablet; Refills: 0, [facility] Product Selection Permitted - Zithromax 500 mg Oral Tablet - take 1 tablet by ORAL route once daily for 5 days; 5 tablet; Refills: 0, [facility] Product Selection Permitted Signatures: Dispatcher [employer] Rahul Fitzpatrick MD MD cha Lewis, Lynsay, RN RN ll1 Edna Lorenzo 5 Corrections: (The following items were deleted from the chart) 15:30 15:21 Home [facility] 15:30 15:21 new [facility] 15:30 15:21 have improved [facility] 15:30 15:21 Stable [facility] 15:30 15:21 Coronavirus infection, unspecified [facility] 15:30 15:21 Pneumonia due to SARS-associated coronavirus [facility] 15:30 15:21 Weakness [facility] 17:17 12:25 Urine Dipstick-Ancillary ordered. [facility] tw5
--- NOTE | 2021-04-03 15:22 | ER ---
Nurse's Notes [facility] Name: Gregory Richardson Jr Age: 46 yrs Sex: Male : 1975 Arrival Date: 04/03/2021 Time: 12:06 Bed 5 Private MD: Diagnosis: Coronavirus infection, unspecified;Pneumonia due to SARS-associated coronavirus;Weakness;Cough Presentation: 04/03 12:18 Chief complaint: Patient states: Started feeling bad Sunday, tested positive for covid ll1 . Started to feel real bad today. Weak, shaky, SOB, dizzy, nausea, and diarrhea. 102 fever last night. Coronavirus screen: Vaccine status: Patient reports being unvaccinated. Client denies travel out of the [place] in the last 14 days. congestion, cough unrelated to allergies, difficulty breathing, fatigue, loss of taste or smell, Client presents with at least one sign or symptom that may indicate coronavirus-19. Standard/surgical mask placed on the client. Ebola Screen: Patient denies travel to an Ebola-affected area in the 21 days before illness onset. Initial Sepsis Screen: Does the patient meet any 2 criteria? HR > 90 bpm. No. Patient's initial sepsis screen is negative. Does the patient have a suspected source of infection? Yes: Productive cough/pneumonia. Risk Assessment: Do you want to hurt yourself or someone else? Patient reports no desire to harm self or others. Onset of symptoms was March 29, 2021. 12:18 Method Of Arrival: Ambulatory ll1 12:18 Acuity: RHIANNON 3 ll1 Triage Assessment: 17:21 General: Appears in no apparent distress. Behavior is calm, cooperative. tw5 Historical: - Allergies: 12:20 No Known Drug Allergies; ll1 - PMHx: 12:20 Hyperlipidemia; Hypertension; Myocardial infarction; ll1 - PSHx: 12:20 None; ll1 - Immunization history:: Client reports having NOT received the Covid vaccine. - Social history:: Smoking status: Patient reports the use of cigarette tobacco products, smokes one-half pack cigarettes per day. - Family history:: not pertinent. Screenin:27 Abuse screen: Denies threats or abuse. Denies injuries from another. Nutritional tw5 screening: No deficits noted. Tuberculosis screening: No symptoms or risk factors identified. Fall Risk None identified. Assessment: 12:58 Reassessment: EKG done and shown to Dr. Marr. XRAY at bedside at this time ss obtaining Chest XRAY. 13:27 General: Reports ' I tested positive for Covid last , and I have just been tw5 feeling bad since.'. General: Reports feeling ill for fatigue for. Pain: Denies pain. Pain. Cardiovascular: Reports diaphoresis, fatigue, lightheadedness, nausea. 13:39 Neuro: Level of Consciousness is awake, alert, obeys commands. tw5 15:46 Reassessment: Patient states feeling better. Patient states symptoms have improved. tw5 17:17 General: Dr. Marr came by and saw the patient. Gave his blessing for him to tw5 discharged. . Vital Signs: 12:18 BP 154 / 98; Pulse 113; Resp 20; Temp 98.2; Pulse Ox 96% on R/A; Weight 99.79 kg; ll1 Height 5 ft. 10 in. (177.80 cm); Pain 4/10; 13:27 BP 142 / 91; Pulse 91; Resp 18; Pulse Ox 96% on R/A; tw5 15:46 BP 147 / 97; Pulse 78; Resp 18; Pulse Ox 99% on R/A; Pain 0/10; tw5 17:20 BP 147 / 85; Pulse 83; Resp 16; Temp 98.4; Pulse Ox 96% on R/A; Pain 0/10; tw5 12:18 Body Mass Index 31.57 (99.79 kg, 177.80 cm) ll1 ED Course: 12:06 Patient arrived in ED. as 12:18 Arm band placed on Patient placed. ll1 12:20 Triage completed. ll1 12:23 Rahul Marr MD is Attending Physician. [facility] 12:59 XRAY Chest (1 view) In Process Unspecified. EDMS 13:08 Edna Lorenzo is Primary Nurse. tw5 13:27 Patient has correct armband on for positive identification. Placed in gown. Bed in low tw5 position. Call light in reach. Side rails up X 1. Adult w/ patient. ndt inspector on. Pulse ox on. NIBP on. Door closed. Noise minimized. Lights dimmed. Warm blanket given. Verbal reassurance given. 13:27 Inserted saline lock: 20 gauge in right antecubital area, using aseptic technique. tw5 13:30 No apparent distress. tw5 13:30 Initial lab(s) drawn, by me, sent to lab. First set of blood cultures drawn by me. tw5 13:39 Basic Metabolic Panel Sent. tw5 13:39 CBC with Automated Diff Sent. tw5 13:39 CRP Sent. tw 13:39 D-Dimer Sent. tw 13:39 Ferritin Sent. tw5 13:39 Lactate Sent. tw5 13:39 Blood Culture Adult (2) Sent. tw 13:39 LFT's Sent. tw5 13:39 Basic Metabolic Panel Sent. tw5 13:39 CBC with Diff Sent. tw5 13:39 Magnesium Sent. tw5 13:39 NT PRO-BNP Sent. tw5 13:39 PT-INR Sent. tw 13:39 Troponin (emerg Dept Use Only) Sent. tw5 15:21 Phani Barney MD is Referral Physician. irena 15:38 awaiting medication from pharmacy. request for medication faxed. tw 15:56 Ferritin Sent. tw 15:56 Blood Culture Adult (2) Sent. tw5 17:10 Phani Barney MD is Referral Physician. irena 17:17 No provider procedures requiring assistance completed. IV discontinued, intact, tw5 bleeding controlled, No redness/swelling at site. Pressure dressing applied. Administered Medications: 13:46 Drug: Pepcid (famotidine) 20 mg Route: IVP; Site: right antecubital; tw5 15:56 Follow up: Response: No adverse reaction 13:47 Drug: NS 0.9% 500 ml Route: IV; Rate: bolus; Site: right antecubital; tw5 15:56 Follow up: Response: No adverse reaction; IV Status: Completed infusion 13:47 Drug: NS 0.9% 1000 ml Route: IV; Rate: 125 ml/hr; Site: left antecubital; tw5 17:16 Follow up: Response: No adverse reaction; IV Status: Completed infusion 5 15:49 Drug: Albuterol HFA Inhaler 4 puffs Route: Inhalation; 15:55 Drug: Zithromax (azithromycin) 500 mg Route: PO; 17:16 Follow up: Response: No adverse reaction 15:55 Drug: Aspirin 162 mg Route: PO; tw 17:16 Follow up: Response: No adverse reaction tw 15:55 Drug: Pepcid (famotidine) 20 mg Route: PO; tw 17:16 Follow up: Response: No adverse reaction tw 16:15 Drug: Casirivimab-Imdevimab Dose Pack 120 mg/mL-120 mg/mL (EUA) 1 vials {Note: verified tw with Dr. Marr that a single vial only contains 600/600 mg pr 10 ml. SEE New written order in charge for correct medication order. Only 1 vial to be administered. .} Route: IV; Rate: per protocol; Site: left antecubital; 17:16 Follow up: Response: No adverse reaction; IV Status: Completed infusion tw 16:16 Drug: Singulair 10 mg Route: PO; tw 17:16 Follow up: Response: No adverse reaction Outcome: 15:21 Discharge ordered by . irena 17:10 Discharge ordered by . irena 17:20 Discharged to home ambulatory, with family. tw 17:20 Condition: good 17:20 Discharge instructions given to patient, family, Instructed on discharge instructions, follow up and referral plans. medication usage, Demonstrated understanding of instructions, Prescriptions given X x5 17:22 Patient left the ED. Signatures: Dispatcher [employer] EDRahul Crenshaw MD MD cha Martinez, Amelia as Smirch, Shelby, RN RN Marcos Yusuf RN RN ll1 Edna Lorenzo tw5
[2021-04-03] MEDS ORDERED: NA CHLORIDE 0.9% 250 ML ONE (15:46)
[2021-04-03] MEDS ORDERED: CASIRIVIMAB/IMDEVIMAB 10 ML VIAL ONE (15:46)
[2021-04-03] MEDS ORDERED: MONTELUKAST 10 MG TAB PO ONE (16:00)
[2021-04-03] MEDS ORDERED: AZITHROMYCIN 250 MG TAB ONE (16:06)
[2021-04-03] MEDS ORDERED: FAMOTIDINE 20 MG TAB ONE (16:06)
[2021-04-03] MEDS ORDERED: ALBUTEROL INHALER 60 PUFF/8 GM IH ONE (16:07)
[2021-04-03] MEDS ORDERED: ASPIRIN EC 81 MG TAB PO ONE (16:07)
[2021-04-03 16:13] LABS: Ferritin 853.7 ng/mL (26-388)
[2021-04-03 18:00] VITALS: BP 147/85; TEMP 98.4; O2SAT 96
== END 2021-04-03 17:22 | disposition home or self-care (01) ==
LOC: ER 12:04
DX: U07.1 COVID-19 (principal); J12.82 Pneumonia due to coronavirus disease 2019; J12.81 Pneumonia due to SARS-associated coronavirus; R05.9 Cough, unspecified; R53.1 Weakness; F17.210 Nicotine dependence, cigarettes, uncomplicated
CPT/HCPCS: 36415; 71045; 80048; 80076; 82728; 83605; 83735; 83880; 84484; 85025; 85379; 85610; 86140; 87040; 93005; 96361; 96365; 96375; 99285; J7030; J7040; J7050; M0243

== ENCOUNTER 2022-07-27 19:57 | Emergency (ER) | payer BC ==
[2022-07-27 20:51] LABS: Absolute Lymphocytes (CBC) 3.1 K/uL (0.7-4.9); Hematocrit 47.9 % (39.6-49.0); Lymphocytes % 28.7 % (15.3-44.8); MCV 94.7 fL (80-100); MPV 8.2 fL (7.6-11.3); RBC Red Blood Cell Count 5.06 M/uL (4.33-5.43)
[2022-07-27 20:52] LABS: Protime INR 0.97
[2022-07-27 21:11] LABS: ALT/SGPT 35 U/L (16-61); Albumin 3.6 g/dL (3.4-5.0); Alkaline Phosphatase 85 U/L (45-117); BUN Blood Urea Nitrogen 10 mg/dL (7-18); Bicarbonate 25 mmol/L (21-32); Bilirubin Total 0.3 mg/dL (0.2-1.0); Glomerular Filtration Rate 105 ml/min (=/>90); Glucose Level 159 mg/dL (74-106); NT PRO-BNP 76 pg/mL (<125); Protein, Total 7.1 g/dL (6.4-8.2); Sodium Level 136 mmol/L (136-145); Troponin High Sensitivity 8.6 pg/mL (<58.9)
--- NOTE | 2022-07-27 21:11 | RAD REPORT ---
EXAM DESCRIPTION: Sarbjit Single View07/27/2022 8:37 pm CLINICAL HISTORY: Chest pain COMPARISON: 2020 FINDINGS: The lungs appear clear of acute infiltrate. The heart is normal size IMPRESSION: No acute abnormalities displayed
[2022-07-27 21:12] LABS: AST/SGOT 28 U/L (15-37); Bilirubin Direct < 0.1 mg/dL (0-0.2); Magnesium 2.2 mg/dL (1.6-2.4)
[2022-07-27] MEDS ORDERED: AMLODIPINE 10 MG TAB ONE (22:19)
[2022-07-27] MEDS ORDERED: METOPROLOL TAR 25 MG TAB ONE (22:19)
[2022-07-27] MEDS ORDERED: ASPIRIN 81 MG CHEWABLE TABLET ONE (22:19)
--- NOTE | 2022-07-27 23:17 | ER ---
Nurse's Notes [facility] Name: Gregory Richardson Jr Age: 47 yrs Sex: Male : 1975 Arrival Date: 07/27/2022 Time: 20:00 Bed 14 Private MD: Diagnosis: Palpitations;Hypertensive heart disease without heart failure;Shortness of breath;Chest pain, unspecified Presentation: 07/27 20:03 Chief complaint: Patient states: "I've had several heart attacks and yesterday it felt as6 like I was having one but the pain got a little better but today I've been having chest pains, palpations, and shortness of breath all day". Coronavirus screen: At this time, the client does not indicate any symptoms associated with coronavirus-19. Ebola Screen: No symptoms or risks identified at this time. Initial Sepsis Screen: Does the patient meet any 2 criteria? No. Patient's initial sepsis screen is negative. Does the patient have a suspected source of infection? No. Patient's initial sepsis screen is negative. Risk Assessment: Do you want to hurt yourself or someone else? Patient reports no desire to harm self or others. Onset of symptoms was July 26, 2022. 20:03 Method Of Arrival: Ambulatory as6 20:03 Acuity: RHIANNON 2 as6 Historical: - Allergies: 20:09 No Known Allergies; as6 - PMHx: 20:09 Hyperlipidemia; Hypertension; Myocardial infarction; as6 - PSHx: 20:09 stent; as6 - Immunization history:: Client reports having NOT received the Covid vaccine. Flu vaccine is not up to date. - Social history:: Smoking status: Patient reports the use of cigarette tobacco products, smokes one pack cigarettes per day. Screenin:46 [facility] ED Fall Risk Assessment (Adult) History of falling in the last 3 months, mb9 including since admission No falls in past 3 months (0 pts) Confusion or Disorientation No (0 pts) Intoxicated or Sedated No (0 pts) Impaired Gait No (0 pts) Mobility Assist Device Used No (0 pt) Altered Elimination No (0 pt) Score/Fall Risk Level 0 - 2 = Low Risk Oriented to surroundings, Maintained a safe environment. Abuse screen: Denies threats or abuse. Nutritional screening: No deficits noted. Tuberculosis screening: No symptoms or risk factors identified. Assessment: 20:45 General: Appears uncomfortable, Behavior is cooperative. Pain: Complains of pain in mb9 chest Pain does not radiate. Pain currently is 2 out of 10 on a pain scale. Quality of pain is described as stabbing, squeezing, Pain began 1 day ago. Is intermittent. Neuro: Level of Consciousness is awake, alert, obeys commands, Oriented to person, place, time, situation, Appropriate for age. Cardiovascular: Heart tones S1 S2 present Capillary refill < 3 seconds is brisk Patient's skin is warm and dry. Rhythm is regular. Respiratory: Airway is patent Respiratory effort is even, unlabored, Respiratory pattern is regular, symmetrical, Breath sounds are clear bilaterally. GI: Abdomen is round non-distended, Bowel sounds present X 4 quads. Abd is soft and non tender X 4 quads. Reports nausea. : No signs and/or symptoms were reported regarding the genitourinary system. EENT: No signs and/or symptoms were reported regarding the EENT system. Derm: Skin is pink, warm \\T\\ dry. Musculoskeletal: Range of motion: intact in all extremities. 21:44 Reassessment: No changes from previously documented assessment. Patient and/or family mb9 updated on plan of care and expected duration. Pain level reassessed. Patient is alert, oriented x 3, equal unlabored respirations, skin warm/dry/pink. 22:50 Reassessment: "I feel better and want to leave. My BP is lower now and I don't have any mb9 chest pain anymore". 23:03 Reassessment: Patient and/or family updated on plan of care and expected duration. Pain mb9 level reassessed. Patient is alert, oriented x 3, equal unlabored respirations, skin warm/dry/pink. Patient denies pain at this time. Patient states feeling better. Patient states symptoms have improved. Vital Signs: 20:03 BP 194 / 107; Pulse 83; Resp 18 S; Temp 97.7(O); Pulse Ox 95% on R/A; Weight 102.51 kg as6 (R); Height 5 ft. 10 in. (177.80 cm) (R); Pain 9/10; 20:44 BP 166 / 103; Pulse 84; Resp 20; Pulse Ox 96% on R/A; Pain 2/10; mb9 21:44 BP 178 / 93; Pulse 80; Resp 20; Pulse Ox 97% on R/A; mb9 23:03 BP 175 / 98; Pulse 88; Resp 17; Pulse Ox 100% ; Pain 0/10; mb9 23:11 BP 169 / 96; mb9 20:03 Body Mass Index 32.43 (102.51 kg, 177.80 cm) as6 ED Course: 20:00 Patient arrived in ED. rg4 20:09 Triage completed. as6 20:10 Arm band placed on. as6 20:10 Placed in gown. Bed in low position. Call light in reach. Side rails up X 1. Client mb9 placed on continuous cardiac and pulse oximetry monitoring. NIBP monitoring applied. Pulse ox on. 20:26 Amanda Donaldson, ROEL is Primary Nurse. mb9 20:35 Rahul Jordan PA is PHCP. cp 20:35 Marito Mckenzie MD is Attending Physician. cp 20:39 XRAY Chest (1 view) In Process Unspecified. EDMS 20:40 No provider procedures requiring assistance completed. Missed attempt(s): 20 gauge in mb9 right forearm. Bleeding controlled, band aid applied, catheter tip intact. 20:44 Basic Metabolic Panel Sent. mb9 20:44 CBC with Diff Sent. mb9 20:44 Troponin HS Sent. mb9 20:44 LFT's Sent. mb9 20:44 Magnesium Sent. mb9 20:44 NT PRO-BNP Sent. mb9 20:44 PT-INR Sent. mb9 20:47 Patient maintains SpO2 saturation greater than 95% on room air. mb9 23:15 Jarad Mack MD is Referral Physician. cp 23:25 IV discontinued, intact, bleeding controlled, No redness/swelling at site. Pressure mb9 dressing applied. Administered Medications: 22:30 Drug: amLODIPine 10 mg Route: PO; mb9 22:30 Drug: Aspirin Chewable Tablet 324 mg Route: PO; mb9 22:35 Drug: Metoprolol 25 mg Route: PO; mb9 Medication: 20:46 VIS not applicable for this client. mb9 Outcome: 23:16 Discharge ordered by . cp 23:25 Discharged to home ambulatory. mb9 23:25 Condition: stable 23:25 Discharge instructions given to patient, Instructed on discharge instructions, follow up and referral plans. Demonstrated understanding of instructions, follow-up care, medications, Prescriptions given X 2. 23:26 Patient left the ED. mb9 Signatures: Dispatcher [employer] EDMS Rahul Jordan PA PA cp Garcia, Rubi rg4 Jl Jones RN RN as6 Amanda Donaldson RN RN mb9
--- NOTE | 2022-07-27 23:17 | EDPHYS ---
Physician Documentation [facility] Name: Gregory Richardson Jr Age: 47 yrs Sex: Male : 1975 Arrival Date: 07/27/2022 Time: 20:00 Bed 14 Private MD: ED Physician Marito Mckenzie HPI: 07/27 20:30 This 47 yrs old Male presents to ER via Ambulatory with complaints of Chest Pain, cp Breathing Difficulty, Palpitations. 20:30 The patient has shortness of breath at rest. cp 20:30 Onset: The symptoms/episode began/occurred yesterday. Duration: The symptoms are cp intermittent, with no pattern. The patient presents with a history of irregular heart beat. Onset: The symptoms/episode began/occurred yesterday. Duration: The patient or guardian reports multiple episodes, that are intermittent. Patient c/o discomfort in chest. Patient reports history of multiple MIs and admits to running out of prescribed hypertensive medication, amlodipine about 1 month ago. Historical: - Allergies: 20:09 No Known Allergies; as6 - PMHx: 20:09 Hyperlipidemia; Hypertension; Myocardial infarction; as6 - PSHx: 20:09 stent; as6 - Immunization history:: Client reports having NOT received the Covid vaccine. Flu vaccine is not up to date. - Social history:: Smoking status: Patient reports the use of cigarette tobacco products, smokes one pack cigarettes per day. ROS: 20:35 Constitutional: Negative for body aches, chills, fever, poor PO intake. cp 20:35 Eyes: Negative for injury, pain, redness, and discharge. cp 20:35 ENT: Negative for drainage from ear(s), ear pain, sore throat, difficulty swallowing, difficulty handling secretions. 20:35 Neck: Negative for pain with movement, pain at rest, stiffness. 20:35 Cardiovascular: Positive for chest pain, palpitations, Negative for edema. 20:35 Respiratory: Positive for shortness of breath, Negative for cough, wheezing. 20:35 Abdomen/GI: Negative for abdominal pain, vomiting, diarrhea, constipation. 20:35 Back: Negative for pain at rest, pain with movement. 20:35 Neuro: Positive for dizziness, headache, Negative for altered mental status, numbness, syncope, weakness. 20:35 All other systems are negative. Exam: 20:15 ECG was reviewed by the Attending Physician. cp 20:40 Constitutional: The patient appears in no acute distress, alert, awake, cp non-diaphoretic, non-toxic, well developed, well nourished, obese. 20:40 Head/Face: Normocephalic, atraumatic. cp 20:40 Eyes: Periorbital structures: appear normal, Pupils: equal, round, and reactive to light and accomodation, Extraocular movements: intact throughout, Conjunctiva: normal, no exudate, no injection, Sclera: no appreciated abnormality, Lids and lashes: appear normal, bilaterally. 20:40 ENT: External ear(s): are unremarkable, Nose: is normal, Mouth: Lips: moist, Oral mucosa: pink and intact, moist, Posterior pharynx: is normal, airway is patent, no erythema, no exudate. 20:40 Neck: ROM/movement: is normal, is supple, without pain, no range of motions limitations. 20:40 Chest/axilla: Inspection: normal, Palpation: is normal, no crepitus, no tenderness. 20:40 Cardiovascular: Rate: normal, Rhythm: regular, Edema: is not appreciated, JVD: is not appreciated. 20:40 Respiratory: the patient does not display signs of respiratory distress, Respirations: normal, no use of accessory muscles, no retractions, labored breathing, is not present, Breath sounds: are clear throughout, no decreased breath sounds, no stridor, no wheezing. 20:40 Abdomen/GI: Inspection: abdomen appears normal, Bowel sounds: active, all quadrants, Palpation: abdomen is soft and non-tender, in all quadrants. 20:40 Back: pain, is absent, ROM is normal. 20:40 Neuro: Orientation: to person, place \T\ time. Mentation: is normal, Cerebellar function: is grossly normal, Motor: moves all fours, strength is normal, Sensation: is normal. Vital Signs: 20:03 BP 194 / 107; Pulse 83; Resp 18 S; Temp 97.7(O); Pulse Ox 95% on R/A; Weight 102.51 kg as6 (R); Height 5 ft. 10 in. (177.80 cm) (R); Pain 9/10; 20:44 BP 166 / 103; Pulse 84; Resp 20; Pulse Ox 96% on R/A; Pain 2/10; mb9 21:44 BP 178 / 93; Pulse 80; Resp 20; Pulse Ox 97% on R/A; mb9 23:03 BP 175 / 98; Pulse 88; Resp 17; Pulse Ox 100% ; Pain 0/10; mb9 23:11 BP 169 / 96; mb9 20:03 Body Mass Index 32.43 (102.51 kg, 177.80 cm) as6 MDM: 20:36 Patient medically screened. cp 23:15 Data reviewed: vital signs, nurses notes, lab test result(s), EKG, radiologic studies. cp 23:15 Consideration of Admission/Observation Escalation of care including cp admission/observation considered. I considered the following discharge prescriptions or medication management in the emergency department Medications were administered in the Emergency Department. See MAR. Test considered but Not performed: CT: chest. Care significantly affected by the following chronic conditions: Hypertension. 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 Response to treatment: the patient's symptoms have mildly improved after treatment, and as a result, I will discharge patient. Special discussion: Based on the patient's history, exam, and Dx evaluation, there is no indication for emergent intervention or inpatient Tx. It is understood by the patient/guardian that if the Sx's persist or worsen they need to return immediately for re-evaluation. ED course: Vital signs stable. Blood pressure improved. Reviewed results of labs EKG and chest x-ray that returned negative for signs of acute DE. Discussed these results with patient and possible observation for continued monitoring but patient requesting to be discharged to follow-up outpatient with cardiology. 07/27 20:23 Order name: Basic Metabolic Panel; Complete Time: 22:25 as6 07/27 22:25 Interpretation: Normal except: GLUC 159. cp 07/27 20:23 Order name: CBC with Diff; Complete Time: 22:25 as6 07/27 22:25 Interpretation: Normal except: BASO% 1.6. cp 07/27 20:23 Order name: LFT's; Complete Time: 22:25 07/27 22:25 Interpretation: Normal except: A/G 1.0. 07/27 20:23 Order name: Magnesium; Complete Time: 22:25 07/27 20:23 Order name: NT PRO-BNP; Complete Time: 22:25 07/27 20:23 Order name: PT-INR; Complete Time: 22:25 07/27 20:23 Order name: Troponin HS; Complete Time: 22:25 07/27 22:26 Interpretation: Troponin HS 8.6; Reviewed. 07/27 20:23 Order name: XRAY Chest (1 view); Complete Time: 22:25 07/27 22:26 Interpretation: Report review. 07/27 20:23 Order name: EKG; Complete Time: 20:24 07/27 20:23 Order name: Cardiac monitoring; Complete Time: 20:28 07/27 20:23 Order name: EKG - Nurse/Tech; Complete Time: 20:23 07/27 20:23 Order name: IV Saline Lock; Complete Time: 20:50 07/27 20:23 Order name: Labs collected and sent; Complete Time: 20:44 07/27 20:23 Order name: O2 Per Protocol; Complete Time: 20:28 07/27 20:23 Order name: O2 Sat Monitoring; Complete Time: 20:28 EC:15 Rate is 88 beats/min. Rhythm is regular. [place] interval is normal. QRS interval is cp prolonged at 102 msec. QT interval is normal. T waves are Inverted in leads aVL, aVR. Interpreted by me. Reviewed by me. Administered Medications: 22:30 Drug: amLODIPine 10 mg Route: PO; mb9 22:30 Drug: Aspirin Chewable Tablet 324 mg Route: PO; mb9 22:35 Drug: Metoprolol 25 mg Route: PO; mb9 Disposition: 23:56 Co-signature as Attending Physician, Marito Mckenzie MD I agree with the assessment and kdr plan of care. Disposition Summary: 07/27/22 23:16 Discharge Ordered Location: Home cp Problem: new cp Symptoms: have improved cp Condition: Stable cp Diagnosis - Palpitations cp - Hypertensive heart disease without heart failure cp - Shortness of breath cp - Chest pain, unspecified cp Followup: cp - With: Jarad Mack MD - When: 2 - 3 days - Reason: Recheck today's complaints Discharge Instructions: - Discharge Summary Sheet cp - Nonspecific Chest Pain, Adult cp - Hypertension, Adult cp - Palpitations cp - Shortness of Breath, Adult cp - Aspirin and Your Heart cp - How to Take Your Blood Pressure cp Forms: - Medication Reconciliation Form cp - Thank You Letter cp - Antibiotic Education cp - Prescription Opioid Use cp Prescriptions: - Norvasc 10 mg Oral Tablet - take 1 tablet by ORAL route once daily; 30 tablet; Refills: 0, Product cp Selection Permitted - Metoprolol Tartrate 25 mg Oral Tablet - take 1 tablet by ORAL route 2 times per day with a meal; 30 tablet; Refills: 0, cp Product Selection Permitted Signatures: Dispatcher [employer] Marito Chandler MD MD kdr Rahul Jordan PA PA cp Jl Jones RN RN as6 Amanda Donaldson RN RN mb9
[2022-07-28 00:35] VITALS: TEMP 97.7
[2022-07-28 00:39] VITALS: BP 169/96; O2SAT 100
--- NOTE | 2022-07-28 16:01 | EKG ---
Test Date: 2022-07-27 Test Time: 20:10:07 Trust Manager Assistant: MEASUREMENT RESULTS: Intervals: Rate: 88 TN: 148 QRSD: 102 QT: 368 QTc: 445 [place]: P: 69 TN: 148 QRS: 51 T: 75 INTERPRETIVE STATEMENTS: Normal sinus rhythm Normal ECG Compared to ECG 04/03/2021 12:51:23 No significant changes Electronically Signed On 07-28-22 16:00:04 TELEPHONE COIN BOX COLLECTOR by Jarad Mack
== END 2022-07-27 23:26 | disposition home or self-care (01) ==
LOC: ER 19:57
DX: I11.9 Hypertensive heart disease without heart failure (principal); R00.2 Palpitations; R06.02 Shortness of breath; I10 Essential (primary) hypertension; I25.2 Old myocardial infarction
CPT/HCPCS: 36415; 71045; 80048; 80076; 83735; 83880; 84484; 85025; 85610; 93005; 99284

== ENCOUNTER 2023-09-18 09:31 | Observation (INO) | payer BC ==
--- OUTSIDE RECORDS SUMMARY | 2023-09-18 09:35 | XMS REPORT | Continuity of Care Document ---
Author Name Unknown Address [address] [facility] [place] [address] [facility] thconnect Address [address] [facility] [place] [address] Care Team Providers Care Vp Product Name Role Phone Pcp, Patient Does Not Have A Primary Care Physic shaneka Campaigns, Generic Provider Attending Clinician Unavailable Dario Veronica MD Attending Clinician [phone] Saji Escalona DO Attending Clinician [phone] SAJI ESCALONA Attending Clinician Unavailable DARIO VERONICA Admitting Clinician Unavailable Payers Payer Name Policy Type Policy Number Effective Date Expirati on Date Source Allergies, Adverse Reactions, Alerts Allergy Name Allergy Type Status Severity Reaction(s) Onset Date Inactive Date Treating Clinician Comments Source NO KNOWN ALLERGIE S Drug Class Active [facility] Social History Social Habit Start Date Stop Date Quantity Comments Source Sexual orientation U [facility] Sex Assigned At 1975 00:00:00 1975 00:00:00 [facility] Smoking Status Start Date Stop Date Source Tobacco smoking consumption unknown [facility] Medications Ordered Medication Name Filled Medication Name Start Date Stop Date Current Medication? Ordering Clinician Indication Dosage Frequency Signature (SIG) Comments Components Source morpHINE (4 mg/mL) injection 4 mg 08-20 12:00: 00 08-20 12:09 :00 No 4mg 4 mg, Slow IV Push, ONCE, 1 dose, On Sun08/21/23 at 0700, STAT [facility] Vital Signs Vital Name Observation Time Observation Value Comments Teresa hill Systolic blood pressure 2023-08-21 14:00:00 148 mm[Hg] [facility] Diastolic blood pressure 2023-08-21 14:00:00 81 mm[Hg] [facility] Heart rate 2023-08-21 14:00:00 61 /min [facility] Respiratory rate 2023-08-21 14:00:00 13 /min [facility] Oxygen saturation in Arterial blood by Pulse oximetry 2023-08-21 14:00:00 96 /min [facility] Body temperature 2023-08-21 10:44:00 37 Juli [facility] Body height 2023-08-21 10:44:00 177.8 cm [facility] Body weight 2023-08-21 10:44:00 117.935 kg [facility] BMI 2023-08-21 10:44:00 37.31 kg/m2 [facility] Procedures Procedure Date / Time Performed Performing Clinician Source TROPONIN I 2023-08-21 13:03:00 [facility] EKG-12 LEAD 2023-08-21 12:10:20 Dario Veronica [facility] LIPASE 2023-08-21 10:50:00 Dario Veronica [facility] MAGNESIUM 2023-08-21 10:50:00 Dario Veronica [facility] TROPONIN I 2023-08-21 10:50:00 Dario Veronica [facility] THYROID STIMULATING HORMONE 2023-08-21 10:50:00 Dario Veronica [facility] COMP. METABOLIC PANEL (38996) 2023-08-21 10:50:00 Dario Veronica [facility] CBC WITH DIFF 2023-08-21 10:50:00 Dario Veronica [facility] N-TERMINAL PRO-BNP 2023-08-21 10:50:00 Dario Veronica [facility] NOTICE OF PRIVACY PRACTICES 2023-08-21 10:37:45 Doctor Unassigned, Malcolm [facility] CONSENT/REFUSAL FOR DIAGNOSIS AND TREATMENT 2023-08-21 10:36:35 Doctor Unassigned, Malcolm [facility] Encounters Start Date/Time End Date/Time Encounter Type Admission Type Attending [facility] Care Department Encounter ID Source 2023-08-29 00:00:00 2023-08-29 00:00:00 Letter (Out) Campaigns, Generic Provider [facility] 1.2.840.114 350.1.13.10 4.2.7.2.686 [id number] [facility] 2023-08-21 05:37:00 2023-08-21 09:34:00 [facility] 1.2.840.114 350.1.13.10 4.2.7.2.686 [id number] [facility] 2023-08-21 05:37:00 2023-08-21 09:34:00 Emergency X [facility] ERT [id number] [facility] Results Test Description Test Time Test Comments Results Result Co mments Source [facility] Notes Date/Time Note Provider Source 2023-08-21 09:32:33 yMcgw3kRaRV63XkKVy/op8+IEUDKxuLX2vkPhE9 +tcGn/K6PNSH8kbGAmrJ5GYw26321-89-09K35: 32:33 Patient discharged to home, patient given printed and verbal discharge instructions regarding diagnosis provided and follow up with PCP. Patient verbalized understanding of instructions. Patient awake alert oriented, resp reg unlabored, skin warm and dry, color appropriate for race. No adverse reaction to meds given in ER noted upon discharge. Discussed medications. Advised to seek medical attention for new/prolonged/worsening of symptoms, patient ambulated from unit with steady gait in no apparent distress. 23397-2Ocxeusfot department BjseSU5541-46-83G40:32:45[facility] NoteTXT1.2.840.590583.1.13.104.2.7.2.72 7879|[id number] for patient oexr65445-7UcapQQVASUHEVGKNlgnfwmuo C-CDA narrative [id number] P Muston RN[address] [id number] COLJOPUHYUTIBPIZKWE3213-77-93O35:32:451 .2.840.426079.1.72.3.15|1.2.840.392349. 1.13.104.2.7.2.727879_[id number] Tabitha Ornelas RN [facility] 2023-08-21 08:25:32 IG7Q+0fEdGSzF1Dfr46I/PwLtfzqcUMBk7xtItG 0OLXi6mU2xqDrFxjU+0naEnrO1227-91-22C23: 25:32 Patient resting in bed, GCS 15 with no acute distress or concerns at this time. Patient attached to monitoring devices, call button within reach, bed in low locked position. [address]-0Pq[address] NlweJS5405-34-30C52:25:42[facility] NoteTXT1.2.840.409603.1.13.104.2.7.2.72 7879|[id number] for patient xjae24008-3ObruWTLKVTSESMVAjdojophk C-CDA narrative text[address] [id number] QFWFYIQOBSNRRSAYLKX0802-38-45Y58:25:421 .2.840.126739.1.72.3.15|1.2.840.282584. 1.13.104.2.7.2.727879_[id number] [facility] 2023-08-21 07:16:26 z7lMQrBFZWJRjlXEE2SttONmpaHZCRrebs3VEbP yscqVVqbAF+T2RNjmJbuDPryM8256-55-78M91: 16:26 Patient presents with complaint of chest pressure. Patient alert, GCS 15 with no acute distress at this time. Patient attached to monitoring devices, call button within reach, bed in low locked position. 11761-3Bdsmpshhi department BzgvPY0794-86-05K27:17:05[facility] department NoteTXT1.2.840.519432.1.13.104.2.7.2.72 7879|[id number] for patient qnqo33904-4NsnoOJEZLVVLJWFMavsowlbe C-CDA narrative text[address] Ik[id number] OYYSFYBPCILUPHPMCNN5490-52-37Q95:17:051 .2.840.924885.1.72.3.15|1.2.840.389592. 1.13.104.2.7.2.727879_[id number] [facility] 2023-08-21 05:42:58 Zih+bnDxIpUjYipjptil3LSNV8e7/yVRoyhUVai J0Jean-Paul/x670IGQrNudDrsllWn8566-65-70X06: 42:58 Chest Pressure, SOB that started 2 days, pt states this am he was in the shower and he felt dizzy. Pt states that they changed his medication Lopressor to carvedilol and nifedipine on Sunday. 82388-9Vhpnzyqra department Triage gyhjCL2595-16-01F15:47:12[facility] department Triage noteTXT1.2.840.159474.1.13.104.2.7.2.72 7879|[id number] for patient gwaz96090-2Rkquacxwq department NoteLNNARRATIVEFormatted C-CDA narrative text[address] Kr[id number] OACAHEPYFLGNFEPOOEY8646-20-18E38:47:121 .2.840.876528.1.72.3.15|1.2.840.996154. 1.13.104.2.7.2.727879_[id number] [facility] 2023-08-21 05:36:00 pSsPX/qpDSU1x9cnlvEQMLbrkW1CDf2CCsky0/q 9jWVJ4s3uzreE8wnyvvlXHE7V0988-36-40U09: 36:00Associated Order(s): EKG-12 Lead ROUTINE ONCEPre-Procedure Diagnose(s): Chest pressurePost-Procedure Diagnose(s): Chest pressure [facility] Emergency Department NotePatient Name: Shey Arora Jr.Date of : 1975 48 year old maleTreatment Room: [address] Record Number: [id number] Care Physician: No primary care provider on file.Patient Escorted by: Family [5]Mode of Arrival: Personal means [1]EMS Treatment Prior to ED Arrival:SITE ADMINISTRATOR treatment: NoneTravel and Exposure Screening:SymptomsDoes patient have any of these symptoms?: (not recorded)Exposure ScreeningHas patient had contact with someone with a communicable disease in the last month?: (not recorded)Diseases exposed to:: (not recorded)Is Patient ?: (not recorded)Exposure Date: (not recorded)Chief Complaint:Chief ComplaintPatient presents with Chest Pain Shortness of BreathHistory of Present Illness:Shey Arora Jr. is a 48 year old male who presents to the ED for evaluation of chest pressure and palpitations occurring intermittently X 2 days. Pt reports [pain across bilateral anterior chest wall. + Dizziness and nausea. Also reports numbness and tingling to bilateral lower extremities. Pt has not taken any analgesics . Pt took ASA 2 tablets. The pressure sensation is rated at 8/10 and lasts various amount sof times. Fives years ago, pt was evaluated for CABG . 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 [place] provided by: Patient, medical records and spouseLanguage staff interpreter used: Debby PainPain location: L chest and R chestPain quality: throbbingPain radiates to: Does not radiatePain severity: SevereOnset quality: SuddenDuration: 2 daysTiming: IntermittentRelieved by: NothingWorsened by: NothingIneffective treatments: AspirinAssociated symptoms: numbness and shortness of breathAssociated symptoms: no abdominal pain, no AICD problem, no altered mental status, no anorexia, no anxiety, no back pain, no claudication, no cough, no diaphoresis, no dizziness, no dysphagia, no fatigue, no fever, no headache, no heartburn, no lower extremity edema, no nausea, no near-syncope, no orthopnea, no palpitations, no PND, no syncope, no vomiting and no weaknessRisk factors: coronary artery disease, hypertension, male sex and obesityPast Medical History/Immunizations:MICAD S/p StentHTNSleep ApneaTetanus received in last 5 years: NoChildhood immunizations: Zo-hj-iixiBldnfltit:No Known AllergiesPast Social History:Substance & Sexual ActivityNo substance use or sexual activity history on file.Past Surgical History:Left shoulder ORIFStent placement 5 years agoReview of Systems:Review of SystemsConstitutional: Negative for diaphoresis, fatigue and fever.HENT: Negative for trouble swallowing.Respiratory: Positive for shortness of breath. Negative for cough.Cardiovascular: Positive for chest pain. Negative for palpitations, orthopnea, claudication, syncope, PND and near-syncope.Gastrointestinal: Negative for abdominal pain, anorexia, heartburn, nausea and vomiting.Musculoskeletal: Negative for back pain.Neurological: Positive for numbness. Negative for dizziness, weakness and headaches.Physical Exam:ED Triage Vitals [08/21/23 0544]Weight 117.9 kg (260 lb)Actual or estimatedHeight 1.778 m (5' 10")BP (!) 165/84Pulse 112Resp 21Temp 37 ?C (98.6 ?F)Temp srcSpO2 98 %Measured on Room airPhysical ExamVitals and nursing note reviewed.Constitutional:General: He is not in acute distress.Appearance: Normal appearance. He is well-developed. He is obese. He is not ill-appearing, toxic-appearing or diaphoretic.HENT:Head: Normocephalic and atraumatic.Nose: Nose normal. No congestion or rhinorrhea.Mouth/Throat:Mouth: Mucous membranes are moist.Pharynx: Oropharynx is clear.Eyes:General: No scleral icterus.Right eye: No discharge.Left eye: No discharge.Extraocular Movements: Extraocular movements intact.Conjunctiva/sclera: Conjunctivae normal.Pupils: Pupils are equal, round, and reactive to light.Cardiovascular:Rate and Rhythm: Normal rate and regular rhythm.Pulses: Normal pulses.Heart sounds: Normal heart sounds. No murmur heard.Pulmonary:Effort: Pulmonary effort is normal. No respiratory distress.Breath sounds: Normal breath sounds. No stridor. No wheezing, rhonchi or rales.Chest:Chest wall: No tenderness.Abdominal:General: Bowel sounds are normal. There is no distension.Palpations: Abdomen is soft. There is no mass.Tenderness: There is no abdominal tenderness. There is no right CVA tenderness, left CVA tenderness, guarding or rebound.Hernia: No hernia is present.Musculoskeletal:General: No swelling, tenderness, deformity or signs of injury. Normal range of motion.Cervical back: Normal range of motion. No rigidity or tenderness.Right lower leg: No edema.Left lower leg: No edema.Lymphadenopathy:Cervical: No cervical adenopathy.Skin:General: Skin is warm and dry.Capillary Refill: Capillary refill takes less than 2 seconds.Coloration: Skin is not jaundiced or pale.Findings: No bruising, erythema, lesion or rash.Neurological:General: No focal deficit present.Mental Status: He is alert and oriented to person, place, and time.Cranial Nerves: No cranial nerve deficit.Sensory: No sensory deficit.Motor: No weakness.Coordination: Coordination normal.Gait: Gait normal.Deep Tendon Reflexes: Reflexes normal.Psychiatric:Behavior: Behavior normal.Thought Content: Thought content normal.Judgment: Judgment normal.Radiology:XR CHEST 1 VWPreliminary ResultEXAM: XR CHEST 1 VWCOMPARISON: NoneHISTORY: chest pressureFINDINGS:Lungs: The lungs are clear. and well-expanded. No pleural abnormalities.Heart/Mediastinum: The cardiomediastinal silhouette is normal in sizeaccounting for technique.Bones: No osseous lesions are detected. The soft tissues appear normalIMPRESSIONNo acute cardiopulmonary process.Preliminary Report Dictated by Resident: Valerie Huff Results:Lab ResultsCOMP. METABOLIC PANEL (97141) - AbnormalResult Value Ref RangeNA 139 135 - 145 mmol/LK 3.4 (*) 3.5 - 5.0 mmol/LCL 103 98 - 108 mmol/LCO2 TOTAL 28 23 - 31 mmol/LAGAP 8 2 - 16BUN 8 7 - 23 mg/dLGLUCOSE 147 (*) 70 - 110 mg/dLCREATININE 0.62 0.60 - 1.25 mg/dLTOTAL BILI 0.8 0.1 - 1.1 mg/dLCALCIUM 9.3 8.6 - 10.6 mg/Master PROTEIN 8.2 6.3 - 8.2 g/dLALBUMIN 4.5 3.5 - 5.0 g/dLALK PHOS 104 34 - 122 U/LALTv 41 5 - 50 U/LAST(SGOT) 27 13 - 40 U/LeGFR 116.4 mL/min/1.53z2ODO WITH DIFF - AbnormalWBC 10.76 (*) 4.20 - 10.70 10*3/?LRBC 5.41 4.26 - 5.52 10*6/?LHGB 16.9 (*) 12.2 - 16.4 g/dLHCT 49.8 (*) 38.4 - 49.3 %MCV 92.1 81.7 - 95.6 fLMCH 31.2 26.1 - 32.7 pgMCHC 33.9 31.2 - 35.0 g/dLRDW-SD 42.5 38.5 - 51.6 fLRDW-CV 12.6 12.1 - 15.4 %PLT 275 150 - 328 10*3/?LMPV 9.1 (*) 9.8 - 13.0 fLNRBC/100 WBC 0.0 0.0 - 10.0 /100 WBCsNRBC x10^3 <0.01 10*3/?LGRAN MAT (NEUT) % 60.1 %IMM GRAN % 0.70 %LYMPH % 28.5 %MONO % 7.8 %EOS % 2.3 %BASO % 0.6 %GRAN MAT x10^3(ANC) 6.47 1.99 - 6.95 10*3/uLIMM GRAN x10^3 0.07 (*) 0.00 - 0.06 10*3/uLLYMPH x10^3 3.07 1.09 - 3.23 10*3/uLMONO x10^3 0.84 0.36 - 1.02 10*3/uLEOS x10^3 0.25 0.06 - 0.53 10*3/uLBASO x10^3 0.06 0.01 - 0.09 10*3/uLTROPONIN I - NormalTROPONIN I 0.005 <=0.034 ng/mLLIPASE - NormalLIPASE 70 0 - 220 U/LN-TERMINAL PRO-BNP - NormalNT-proBNP <20 <=125 pg/mLMAGNESIUM - NormalMAGNESIUM 2.1 1.7 - 2.4 mg/dLTHYROID STIMULATING HORMONEOrders and Treatments:Orders Placed This EncounterProcedures XR CHEST 1 VW TROPONIN I COMP. METABOLIC PANEL (28312) LIPASE, SERUM CBC WITH DIFF N-Terminal Pro-Bnp Magnesium Thyroid Stimulating HormoneOrders Placed This EncounterMedications morpHINE (4 mg/mL) injection 4 mgFirst Provider Eval:ED EventsDate/Time Event User Kdtfgskq18/12/24 06 Medical Screening Begins DARIO VERONICA MD --08/21/23600 First Provider Evaluation DARIO VERONICA MD --ED COURSEDiagnosis/Impression as of 08/21/23 0916Chest pressurePalpitationsSymptomatic PVCsProcedures:EKG-12 Lead ROUTINE ONCEDate/Time: 08/21/2023 7:08 AMPerformed by: Dario Veronica MDAuthorized by: Dario Veronica MDECG interpreted by ED Physician in the absence of a feeder operator: yesPrevious ECG:Previous ECG: Compared to currentSimilarity: Changes notedInterpretation:Interpretation: abnormalRate:ECG rate: 106ECG rate assessment: tachycardicRhythm:Rhythm: sinus tachycardiaEctopy:Ectopy: PVCsPVCs: InfrequentQRS:QRS axis: NormalQRS intervals: NormalQRS conduction: normalST segments:ST segments: NormalT waves:T waves: normalQ waves:Abnormal Q-waves: not presentMDM:Medical Decision MakingAmount and/or Complexity of Data ReviewedLabs: ordered.Radiology: ordered.RiskPrescription drug management.Parenteral controlled substances.Flowsheet Documentation:7:[address] Escalona at shift change pending labs, re-evaluation and for final dispositionScoring Tools:No data recordedDisposition/Condition:ED DispositionNoneDischarge Medications:Patient's MedicationsNo medications on fileFollow-up:Electronically signed by:Dario Veronica MD08/21/23 0710 08730-0Zyulsqkxu Emergency department AlrnAY0377-06-05Y78:10:19Physician Emergency department NoteTXT1.2.840.114969.1.13.104.2.7.2.72 7879|[id number] for patient toza04980-7Hrqsqpfyj department NoteLNNARRATIVEFormatted C-CDA narrative text[address] Ne[id number] FTBKCYSLYVUIUJYBUYD4292-89-07M33:10:191 .2.840.884345.1.72.3.15|1.2.840.029923. 1.13.104.2.7.2.727879_[id number] [facility] 2023-08-21 05:36:00 ItfNd5wWZEwfIf7YwzmBO4LFVS3t8wZ/d7Rx2Af AXr5jbYCgLs/eU7JlJfGqjtcB2432-92-32W57: 36:00 [facility] ED Transfer of Care Note.Off-going Physician:SapnarimaTime of Transfer of Care: 7:06 Ashley: Shey Arora Jr. is a 48 year old male presenting with chief complaint of 2 days of chest pain. Has PVCs on monitor consistent when he is symptomatic.Pending prior to disposition: Labs and ReevaluationCurrent interventions:MedicationsmorpHINE (4 mg/mL) injection 4 mg (4 mg Slow IV Push Given 08/21/23 0709)Results:Labs ReviewedCOMP. METABOLIC PANEL (73268) - Abnormal; Notable for the following components:Result ValueK 3.4 (*)GLUCOSE 147 (*)All other components within normal limitsCBC WITH DIFF - Abnormal; Notable for the following components:WBC 10.76 (*)HGB 16.9 (*)HCT 49.8 (*)MPV 9.1 (*)IMM GRAN x10^3 0.07 (*)All other components within normal limitsTROPONIN I - NormalNarrative:Reference (Normal) Range (defined by the 99th percentile reference limit):<= 0.034 ng/mLNote: Cardiac troponin begins to rise 3-4 hours after the onset of ischemia. Repeat in 4-6 hours if the sample was drawn within 3-4 hours of the onset of the symptom and found normal.Diagnosis of myocardial injury is made with acute changes in cTn concentrations with at least one serial sample above the 99th percentile upper reference limit (URL), taken together with the patient's clinical presentation.Biotin has been reported to cause a negative bias, interpret results relative to patient's use of biotin.LIPASE - NormalN-TERMINAL PRO-BNP - NormalMAGNESIUM - NormalTHYROID STIMULATING HORMONE - NormalTROPONIN I - NormalNarrative:Reference (Normal) Range (defined by the 99th percentile reference limit):<= 0.034 ng/mLNote: Cardiac troponin begins to rise 3-4 hours after the onset of ischemia. Repeat in 4-6 hours if the sample was drawn within 3-4 hours of the onset of the symptom and found normal.Diagnosis of myocardial injury is made with acute changes in cTn concentrations with at least one serial sample above the 99th percentile upper reference limit (URL), taken together with the patient's clinical presentation.Biotin has been reported to cause a negative bias, interpret results relative to patient's use of biotin.XR CHEST 1 VWPreliminary ResultNo acute cardiopulmonary process.Preliminary Report Dictated by Resident: Valerie Roca Notes:Diagnosis/Impression as of 08/21/23 0916Chest pressurePalpitationsSymptomatic PVCsMedical Decision MakingShey Arora Jr. is a 48 year old male with palpitiations. EKG without dynamic changes. Troponin x2 negative. Unlikely ACS. Has symptomatic PVC's. Stable for discharge with cardiology follow up. Stable for discharge.Problems Addressed:Chest pressure: acute illness or injuryPalpitations: acute illness or injurySymptomatic PVCs: acute illness or injuryAmount and/or Complexity of Data ReviewedLabs: ordered.Radiology: ordered.RiskPrescription drug management.Parenteral controlled substances.Disposition: Discharged HomeSocial Determinants of Health: none.Diagnoses that have been ruled out:NoneDiagnoses that are still under consideration:NoneFinal diagnoses:Chest pressurePalpitationsSymptomatic PVCsED DispositionED DispositionDisch - HomeConditionStableComment--Contact information for follow-upShaw Morejon, ELOYpecialty: IM-CARDIOVASCULAR DISEASE[address] [address]Tggit: [phone]: For follow up of the presenting symptoms.[facility], [place]meron ValleySpecialty: Internal [address] [place] [address], [address] [place] [id number]: [phone]: for follow up of your emergency visit.Saji Escalona DO08/21/23 0916 92767-0Juxisxsel Emergency department EqghYY3341-51-21L09:16:52Physician Emergency department NoteTXT1.2.840.072384.1.13.104.2.7.2.72 7879|[id number] for patient widg79395-8Jpuhewsbj department NoteLNNARRATIVEFormatted C-CDA narrative text[address] Nx[id number] ZIZKDKDJKJFRMTOOAAI1540-08-73N17:16:521 .2.840.370003.1.72.3.15|1.2.840.313296. 1.13.104.2.7.2.727879_[id number] [facility]
[2023-09-18] MEDS ORDERED: ASPIRIN 81 MG CHEWABLE TABLET ONE (09:58)
--- NOTE | 2023-09-18 10:18 | RAD REPORT ---
EXAM DESCRIPTION: Sarbjit Single View09/18/2023 10:07 am CLINICAL HISTORY: Chest pain COMPARISON: 2022 FINDINGS: The lungs appear clear of acute infiltrate. The heart is normal size IMPRESSION: No acute abnormalities displayed
[2023-09-18 10:21] LABS: Absolute Eosinophils 0.3 K/uL (0-0.5); Absolute Lymphocytes (CBC) 2.7 K/uL (0.7-4.9); Absolute Monocytes 0.8 K/uL (0.1-1.3); Absolute Neutrophil 5.9 K/uL (1.8-8.0); Basophils % 0.2 % (0-1.3); Eosinophils % 3.3 % (0-4.4); Hematocrit 48.7 % (39.6-49.0); Hemoglobin 16.8 g/dL (13.6-17.9); Lymphocytes % 27.8 % (15.3-44.8); MCHC 34.5 g/dL (32.0-36.0); MCV 92.7 fL (80-100); MPV 7.7 fL (7.6-11.3); Neutrophils % 60.7 % (41.7-73.7); Platelets 291 thou/uL (152-406); RBC Red Blood Cell Count 5.25 M/uL (4.33-5.43); Red Cell Distribution Width 13.8 % (12.1-15.2)
[2023-09-18 10:28] LABS: PT Prothrombin Time 11.8 SECONDS (9.5-12.5); Protime INR 1.07
[2023-09-18 11:09] LABS: Albumin 3.7 g/dL (3.4-5.0); Anion Gap 7.6 mEq/L (5.0-15.0); Bilirubin Direct 0.2 mg/dL (0-0.2); Bilirubin Indirect, Calculated 0.4 mg/dL (0.2-0.8); Bilirubin Total 0.6 mg/dL (0.2-1.0); Globulin 3.8 g/dL (2.3-3.5); Potassium 3.6 mEq/L (3.5-5.1); Protein, Total 7.5 g/dL (6.4-8.2)
--- NOTE | 2023-09-18 11:15 | EDPHYS ---
Physician Documentation [facility] Name: Gregory Richardson Jr Age: 48 yrs Sex: Male : 1975 Arrival Date: 09/18/2023 Time: 09:31 Bed 17 Private MD: ED Physician Delvin Bermudez HPI: 09/17 09:40 This 48 yrs old Male presents to ER via Unassigned with complaints of chest pain. ec2 09:40 Patient arrives today for evaluation of chest pain. 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 Mack, patient arrives today for chest pain patient reports chest pain ongoing for a long time. Dr. Mack with plans to take him to the [facility] due to concern for unstable angina.. Historical: - Allergies: 09:41 No Known Drug Allergies; ll1 - PMHx: 09:41 Hyperlipidemia; Myocardial infarction; Hypertension; ll1 - PSHx: 09:41 stent; L shoulder surgery (stent); ll1 - Immunization history:: Adult Immunizations up to date. - Infectious Disease History:: Denies. - Social history:: Smoking status: Patient reports the use of cigarette tobacco products, smokes one-half pack cigarettes per day. ROS: 09:40 Constitutional: as per hpi ec2 Exam: 09:40 Constitutional: GEN: NAD Head: atraumatic Eyes: EOMI Ears: External ears are ec2 normal. CV: regular rate LUNGS: no respiratory distress ABD: non-distended SKIN: no evidence of rashes MSK: no evidence of trauma NEURO: moves all extremities equally Vital Signs: 09:41 BP 192 / 78; Pulse 75; Resp 18; Temp 97.8; Pulse Ox 100% on R/A; Weight 122.47 kg; ll1 Height 5 ft. 10 in. ; Pain 3/10; 10:37 BP 152 / 80; Pulse 61; Resp 15; Pulse Ox 93% ; bp 12:05 BP 141 / 73; Pulse 65; Resp 15; Pulse Ox 92% ; bp 09:41 Body Mass Index 38.74 (122.47 kg, 177.8 cm) ll1 09:41 Pain Scale: Adult ll1 MDM: 09:33 Patient medically screened. ec2 09:40 Data reviewed: vital signs. ED course: Patient arrives today for evaluation of chest ec2 pain. Examination remarkable for well-appearing nontoxic but was otherwise in no acute distress. Will obtain cardiac evaluation, admit to hospitalist with cardiology consultation.. 09:52 ED course: EKG independently reviewed and interpreted by me, shows normal sinus rhythm, ec2 rate of 70, no acute ST segment elevations, nonconcerning intervals. Patient with no active chest pain at this time, will defer any aggressive IV opiates at this time for pain management.. 11:14 ED course: Metabolic profile reassuring, troponin within normal ranges. Will admit for ec2 further cardiac evaluation. . 09/17 09:33 Order name: Basic Metabolic Panel; Complete Time: 11:14 ec2 09/17 09:33 Order name: CBC with Diff; Complete Time: 10:51 ec2 09/17 09:33 Order name: PT-INR; Complete Time: 10:51 ec2 09/17 09:33 Order name: Troponin HS; Complete Time: 11:14 ec2 09/17 09:33 Order name: Ptt, Activated; Complete Time: 10:51 ec2 09/17 09:33 Order name: LFT's; Complete Time: 11:14 ec2 09/17 11:32 Order name: Troponin High Sensitivity EDMS 09/17 11:32 Order name: Troponin High Sensitivity EDMS 09/17 11:32 Order name: Troponin High Sensitivity EDMS 09/17 09:33 Order name: XRAY Chest (1 view); Complete Time: 10:51 ec2 09/17 09:33 Order name: Cardiac monitoring; Complete Time: 09:41 ec2 09/17 09:33 Order name: EKG - Nurse/Tech; Complete Time: 09:49 ec2 09/17 09:33 Order name: IV Saline Lock; Complete Time: 10:08 ec2 09/17 09:33 Order name: Labs collected and sent; Complete Time: 10:08 ec2 09/17 09:33 Order name: O2 Per Protocol; Complete Time: 09:41 ec2 09/17 09:33 Order name: O2 Sat Monitoring; Complete Time: 09:41 ec2 09/17 11:29 Order name: NPO; Complete Time: 11:43 la1 Administered Medications: 10:10 Drug: Aspirin PO Chewable Tablet 324 mg PO once; 81 mg tablets x 4 Route: PO; bp 12:09 Follow up: Response: No adverse reaction bp Disposition Summary: 09/18/23 11:15 Hospitalization Ordered Notes: Hospitalization Status: Inpatient Admission ec2 Provider: Elbert Bella ec2 Location: Telemetry/MedSurg (Inpatient) ec2 Condition: Stable ec2 Problem: chronic ec2 Symptoms: are unchanged ec2 Bed/Room Type: Standard ec2 Room Assignment: 417(09/18/23 11:54) bd Diagnosis - Chest pain, unspecified ec2 Forms: - Medication Reconciliation Form ec2 - SBAR form ec2 - Leadership Thank You Letter ec2 Signatures: Dispatcher [employer] EDMS Shalonda Monson bd Rolando Ware, BLENDING COORDINATOR-C BLENDING COORDINATOR-Cla1 Reji Barboza RN RN bp Marcos Mayberry RN RN ll1 Delvin Bermudez MD MD ec2 Corrections: (The following items were deleted from the chart) 09:34 09:34 Chest Single View+RAD.RAD.BRZ ordered. EDNY EDNY 11:54 11:15 ec2 bd
--- NOTE | 2023-09-18 11:15 | ER ---
Nurse's Notes [facility] Name: Gregory Richardson Jr Age: 48 yrs Sex: Male : 1975 Arrival Date: 09/18/2023 Time: 09:31 Bed 17 Private MD: Diagnosis: Chest pain, unspecified Presentation: 09/17 09:41 Chief complaint: Patient states: Chest pressure for " along time". Sent by Dr. Mack [facility] for evaluation. Coronavirus screen: Client denies travel out of the [place] in the last 14 days. At this time, the client does not indicate any symptoms associated with coronavirus-19. Ebola Screen: Patient denies travel to an Ebola-affected area in the 21 days before illness onset. Initial Sepsis Screen: Does the patient meet any 2 criteria? No. Patient's initial sepsis screen is negative. Does the patient have a suspected source of infection? No. Patient's initial sepsis screen is negative. Risk Assessment: Do you want to hurt yourself or someone else? Patient reports no desire to harm self or others. Onset of symptoms was June 11, 2023. 09:41 Method Of Arrival: Ambulatory [facility] 09:41 Acuity: RHIANNON 3 ll1 Triage Assessment: 09:45 General: Appears in no apparent distress. Behavior is calm, cooperative, appropriate bp for age. 09:45 Pain: Complains of pain in chest. EENT: No deficits noted. Cardiovascular: Rhythm is bp sinus rhythm. Historical: - Allergies: 09:41 No Known Drug Allergies; ll1 - PMHx: 09:41 Hyperlipidemia; Myocardial infarction; Hypertension; ll1 - PSHx: 09:41 stent; L shoulder surgery (stent); ll1 - Immunization history:: Adult Immunizations up to date. - Infectious Disease History:: Denies. - Social history:: Smoking status: Patient reports the use of cigarette tobacco products, smokes one-half pack cigarettes per day. Screenin:45 [facility] ED Fall Risk Assessment (Adult) History of falling in the last 3 months, bp including since admission No falls in past 3 months (0 pts). Abuse screen: Denies threats or abuse. Denies injuries from another. Nutritional screening: No deficits noted. Tuberculosis screening: No symptoms or risk factors identified. Assessment: 09:45 General: SEE TRIAGE NOTE. bp 10:37 Reassessment: Patient appears in no apparent distress at this time. Patient is alert, bp oriented x 3, equal unlabored respirations, skin warm/dry/pink. 12:05 Reassessment: PT CONCHITA TO MEDICAL DOCTOR MD/MEDICAL DIRECTOR. REPORT FAXED TO 417. bp Vital Signs: 09:41 BP 192 / 78; Pulse 75; Resp 18; Temp 97.8; Pulse Ox 100% on R/A; Weight 122.47 kg; ll1 Height 5 ft. 10 in. ; Pain 3/10; 10:37 BP 152 / 80; Pulse 61; Resp 15; Pulse Ox 93% ; bp 12:05 BP 141 / 73; Pulse 65; Resp 15; Pulse Ox 92% ; bp 09:41 Body Mass Index 38.74 (122.47 kg, 177.8 cm) ll1 09:41 Pain Scale: Adult ll1 ED Course: 09:33 Patient arrived in ED. ec2 09:33 Delvin Bermudez MD is Attending Physician. ec2 09:34 Arm band placed on Patient placed in an exam room, on a stretcher. ll1 09:39 Reji Barboza, ROEL is Primary Nurse. bp 09:45 Triage completed. ll1 09:45 Patient has correct armband on for positive identification. bp 09:49 EKG done, by clin tech. [id number] 10:08 LFT's Sent. bp 10:08 Ptt, Activated Sent. bp 10:08 Basic Metabolic Panel Sent. bp 10:08 CBC with Diff Sent. bp 10:08 PT-INR Sent. bp 10:08 Troponin HS Sent. bp 10:08 Inserted saline lock: 20 gauge in right forearm, using aseptic technique. Blood bp collected. 10:09 XRAY Chest (1 view) In Process Unspecified. EDMS 11:15 Elbert Bella MD is Hospitalizing Provider. ec2 12:05 Provided Education on: N/A. bp 12:05 No provider procedures requiring assistance completed. Patient admitted, IV remains in bp place. Administered Medications: 10:10 Drug: Aspirin PO Chewable Tablet 324 mg PO once; 81 mg tablets x 4 Route: PO; bp 12:09 Follow up: Response: No adverse reaction bp Medication: 09:45 VIS not applicable for this client. bp Outcome: 11:15 Decision to Hospitalize by Provider. ec2 12:05 Admitted to [facility] accompanied by nurse, via stretcher, bp 12:05 Condition: stable 12:05 Instructed on the need for admit, 12:11 Patient left the ED. bp Signatures: Dispatcher [employer] Reji Croft RN RN Marcos Horn RN RN ll1 Delvin Bermudez MD MD ec2 Rosie Merritt [email or web address]
[2023-09-18] MEDS ORDERED: HEPA 1000U/500MLS 2,000 UNIT/1,000 ML BAG IV ONE (12:02)
[2023-09-18] MEDS ORDERED: NA CHLORIDE 0.9% 500 ML ONE (12:15)
[2023-09-18] MEDS ORDERED: LIDOCAINE 1% 20 ML MDV ONE (15:20)
[2023-09-18] MEDS ORDERED: VERAPAMIL HCL 10 MG/4 ML VIAL IV ONE (15:20)
[2023-09-18] MEDS ORDERED: FENTANYL CITR 100 MCG/2 ML ONE (15:20)
[2023-09-18] MEDS ORDERED: HEPARIN 5000 UNIT/ML 1 ML VIAL ONE (15:21)
[2023-09-18] MEDS ORDERED: MIDAZOLAM HCL 2 MG/2 ML INJ ONE (15:21)
[2023-09-18] MEDS ORDERED: TICAGRELOR 90 MG TABLET PO ONE (15:21)
[2023-09-18] MEDS ORDERED: HEPARIN 10,000 UNIT/10 ML VIAL IV ONE (15:21)
[2023-09-18] MEDS ORDERED: CLOPIDOGREL 75 MG TABLET ONE (15:22)
[2023-09-18] MEDS ORDERED: ATROPINE SULF 1 MG/10 ML SYR IV ONE (15:22)
--- NOTE | 2023-09-18 16:37 | P.HP ---
Certification for Inpatient Patient admitted to: Observation With expected LOS: <2 Midnights Patient will require the following post-hospital care: None Practitioner: I am a practitioner with admitting privileges, knowledge of patient current condition, hospital course, and medical plan of care. Services: Services provided to patient in accordance with Admission requirements found in Title 42 Section 412.3 of the Code of Federal Regulations Patient History Date of Service: 09/18/23 Reason for admission: Unstable angina History of Present Illness: 48-year-old male with history of hypertension, hyperlipidemia, CAD presented to the emergency department chief complaint of chest pain. He reports he has been having ongoing chest pain/pressure for some time now but has become more often, more severe. He reports his symptoms typically occur with exertion and improved with rest. He noticed persistent chest pain today that was unresolved and that reason came to the emergency department. He reports he had a heart catheterization with a stent to his RCA a few years back and was told his LAD mildly blocked but did not a stent at that time. He was evaluated in the emergency department his initial high sensitive troponin was 16 other labs were unremarkable chest x-ray is negative for acute findings. Cardiology was consulted while patient was in the emergency department and elected to take him to the [facility] for unstable angina. 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, 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 moist/pink Neck: Supple, 2+ carotid pulse no bruit, No LAD Respiratory: Clear to auscultation bilaterally, Normal air movement Cardiovascular: Regular rate/rhythm, Normal S1 S2 Gastrointestinal: Normal bowel sounds, No tenderness Musculoskeletal: No tenderness Integumentary: No rashes Neurological: Normal speech, Normal strength at 5/5 x4 extr, Normal tone, Normal affect - Studies Laboratory Data (last 24 hrs) 09/18/23 09/18/23 09/18/23 10:08 10:08 10:08 WBC 9.70 Hgb 16.8 Hct 48.7 Plt Count 291 PT 11.8 INR 1.07 APTT 33.0 Sodium 138 Potassium 3.6 BUN 8 Creatinine 0.81 Glucose 104 Total Bilirubin 0.6 AST 18 ALT 42 Alkaline Phosphatase 99 Assessment and Plan - Plan Assessment: Unstable anginahistory of CAD Hypertension Hyperlipidemia Tobacco use disorder Plan: Unstable anginahistory of CAD Cardiology consulted Patient taken to [facility] 09/17-awaiting results Continue to monitor on telemetry Hypertension Hyperlipidemia Continue home medications once verified Tobacco use disorder Counseled on need for cessation Will provide NicoDerm patch DVT PPX: Lovenox Code status: Full Discharge Plan: Home Plan to discharge in: 24 Hours - Advance Directives Does patient have a Living Will: No Does patient have a Durable POA for Healthcare: No - Code Status/Comfort Care Code Status Assessed: Yes (Full code) Critical Care: No Time Spent Managing Pts Care (In Minutes): 70
[2023-09-18] MEDS ORDERED: HYDRALAZINE HCL 20 MG/ML VIAL ONE ×2 (18:26→20:23)
--- NOTE | 2023-09-18 19:50 | OP ---
Date of Procedure: 09/18/2023 Surgeon: ZAHRAA MARS Procedures Performed: 1.Selective coronary angiogram. 2.Left heart catheterization. Indication: Unstable angina. Access: Right radial artery 6-Irish closed with TR band. Complications: None. Bleeding: Less than 50 mL. Anesthesia: Total sedation time was 45 minutes. Description Of Procedure: After risks, benefits, alternatives were explained, patient agreed to proc edure and signed informed consent. The patient was brought into cardiac catheterization laboratory, prepped and draped in the usual sterile fashion. Then, I accessed right radial artery using [employer] micropuncture kit, placed a 6-Irish Slender sheath and took a 5-Irish Brantley 4.0 catheter into the aortic root over a J-wire, engaged the left main and then in the right coronary artery, took standar d views and the catheter was pushed over the wire into the LV, measured the LVEDP. Pullback did not record any gradient. Then I removed the catheter and the sheath and placed TR band with good hemosta sis. Findings: 1.Left main; distal 70% stenosis and then the LAD proximal 50% and then mid to distal focal 30% to 4 0% and then 40% stenosis. 2.Left circumflex; it is moderate size with proximal 70% stenosis. 3.RCA; it is large and dominant. Mid to distal RCA stent is present with 40% stenosis prior to the stent and then the PDA is very small, but the PLB is very large, has proximal 70% and mid 80% to 90% stenosis. 4.There is an accessory left circumflex artery that comes off the RCA. 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 Conclusion: Severe multivessel coronary artery disease. Recommendation: Transfer for CABG. SR/MODL Voice ID: [id number] Report ID: [id number]
[2023-09-18] MEDS ORDERED: LORAZEPAM 1 MG TABLET ONE (20:28)
[2023-09-18] MEDS ORDERED: ONDANSETRON 4 MG/2 ML VIAL IV PRN (21:29)
[2023-09-18] MEDS ORDERED: NITROGLYCERIN 0.4 MG/TAB SL PRN (21:32)
[2023-09-18] MEDS ORDERED: ACETAMINOPHEN 325 MG TABLET PO PRN (21:32)
[2023-09-18 21:45] VITALS: O2SAT 100
[2023-09-18] MEDS: NICOTINE 14 MG/PAT TD SCH (21:58)
[2023-09-18] MEDS: MORPHINE 2 MG/ML SYR IV PRN (21:59)
[2023-09-18] MEDS: NA CHLORIDE 0.9% 1,000 ML IV SCH (22:02)
[2023-09-18] MEDS ORDERED: LORAZEPAM 1 MG TABLET PO PRN (22:16)
[2023-09-18 22:52] VITALS: BP 149/70; TEMP 98.2; BMI 38.7
[2023-09-18] MEDS: ATORVASTATIN 40 MG TAB PO SCH (23:00)
[2023-09-19] MEDS ORDERED: ASPIRIN EC 81 MG TAB PO SCH (09:00)
[2023-09-19] MEDS ORDERED: ENOXAPARIN 40 MG/0.4 ML SQ SCH (09:00)
--- NOTE | 2023-09-19 12:37 | EKG ---
Test Date: 2023-09-18 Test Time: 09:45:40 Color Weigher: MARY MEASUREMENT RESULTS: Intervals: Rate: 70 MD: 148 QRSD: 92 QT: 398 QTc: 429 [place]: P: 65 MD: 148 QRS: 39 T: 63 INTERPRETIVE STATEMENTS: Normal sinus rhythm Cannot rule out Anterior infarct, age undetermined Abnormal ECG Compared to ECG 07/27/2022 20:10:07 Myocardial infarct finding now present Electronically Signed On 09-19-23 12:34:03 CDT by Jarad Mack
== END 2023-09-18 23:25 | disposition short-term general hospital (02) ==
LOC: ER 09:31 → ERHOLD 11:29 → 4TH 12:05
PROVIDERS: ADMIT Hospitalist; ATTEND Hospitalist
PROC: 4A023N7 Measurement of Cardiac Sampling and Pressure, Left Heart, Percutaneous Approach (ICD-10-PCS; principal; 2023-09-18)
PROC: B2111ZZ Fluoroscopy of Multiple Coronary Arteries using Low Osmolar Contrast (ICD-10-PCS; 2023-09-18)
DX: I25.110 Atherosclerotic heart disease of native coronary artery with unstable angina pectoris (principal); I25.41 Coronary artery aneurysm; I10 Essential (primary) hypertension; E78.5 Hyperlipidemia, unspecified; E78.00 Pure hypercholesterolemia, unspecified; I25.2 Old myocardial infarction; Z95.5 Presence of coronary angioplasty implant and graft; F17.210 Nicotine dependence, cigarettes, uncomplicated; Z71.6 Tobacco abuse counseling; Z79.02 Long term (current) use of antithrombotics/antiplatelets; Z79.82 Long term (current) use of aspirin; Z79.899 Other long term (current) drug therapy; Z82.49 Family history of ischemic heart disease and other diseases of the circulatory system
CPT/HCPCS: 36415; 71045; 76937; 80048; 80076; 84484; 85025; 85610; 85730; 93005; 93458; 99152; 99153; 99285; C1893; G0378; J0360; J0461; J1644; J2001; J2250; J2270; J3010; J7030; J7040; Q9966